=== PATIENT | male | born 1965 | race Two or more races ===

== ENCOUNTER 2023-11-26 14:59 | Inpatient (IN) ==
--- NOTE | 2023-11-26 15:44 | CT Scan Report ---
CT OF THE HEAD WITHOUT CONTRAST CLINICAL HISTORY: Vertigo. COMPARISON STUDY: Head CT January 31, 2009. CT DOSE: 625.8 mGy.cm TECHNIQUE: Helical axial images of the head were obtained without IV contrast. Automated exposure con trol was utilized for the study. A dose lowering technique was utilized adhering to the principles o f ALARA. FINDINGS: No acute intracranial hemorrhage, midline shift or mass effect is present. The ventricular system is unremarkable. The basal cisterns are patent. No extra-axial collections are present. There are no findings to suggest acute dural sinus thrombosis or acute territorial infarct. No significant calvarial abnormalities are present. Visualized portions of the sinuses and mastoid air cells are ricky ar. IMPRESSION: No acute intracranial findings. ACT 112: Negative or not required by law. Electronically signed by: Pro Duff M.D. 11/26/2023 3:43 PM
[2023-11-26 15:52] LABS: Basophils # (auto) 0.07 K/uL (0.00-0.20); Basophils % (auto) 1.1 %; Eosinophils # (auto) 0.12 K/uL (0.00-0.50); Eosinophils % (auto) 1.9 %; Hematocrit (blood only) 40.8 % (42.0-52.0); Hemoglobin 14.1 g/dl (14.0-18.0); Immature Granulocytes # (auto) 0.03 K/uL (0.01-0.20); Immature Granulocytes % (auto) 0.5 %; Lymphocytes # (auto) 1.66 K/uL (1.20-3.40); Lymphocytes % (auto) 26.8 %; Mean Corpuscular Hemoglobin 28.1 pg (25.0-34.0); Mean Corpuscular Hgb Conc 34.6 g/dL (32.0-36.0); Mean Corpuscular Volume 81.4 fL (80.0-100.0); Mean Platelet Volume 11.3 fL (9.4-12.4); Monocytes # (auto) 0.45 K/uL (0.11-0.59); Monocytes % (auto) 7.3 %; Neutrophils # (auto) 3.86 K/uL (1.40-6.50); Neutrophils % (auto) 62.4 %; Platelet Count 233 K/uL (130-400); RDW Coefficient of Variation 13.1 % (11.5-14.5); RDW Standard Deviation 38.1 fL (36.4-46.3); Red Blood Count 5.01 M/uL (4.70-6.10); White Blood Count 6.19 K/ul (4.8-10.8)
[2023-11-26 15:57] LABS: Partial Thromboplastin Time 28 Seconds (21-31); Prothrombin Time 10.9 Seconds (9.0-12.0)
[2023-11-26 16:10] LABS: Albumin Globulin Ratio 1.4 (0.9-2); Albumin Level 4.4 gm/dl (3.4-5.0); BUN Creatinine Ratio 11.3 (10-20); Bilirubin,Total 0.7 mg/dl (0.2-1.0); Calcium 9.6 mg/dl (8.6-10.3); Creatinine Clr Calc Pharmacy 108.1 ml/min; Est GFR (African American) 114.9 ml/min; Est GFR (Non-African American) 99.2 ml/min; Globulin 3.1 gm/dl (2.5-4.0); Total Protein 7.5 gm/dl (6.0-8.3)
[2023-11-26 16:15] LABS: Troponin I High Sensitivity 2.6 pg/ml (0-20)
[2023-11-26] MEDS: SODIUM CHLORIDE 0.9% 1,000 ML IV SCH (16:41)
--- NOTE | 2023-11-26 16:42 | Emergency Department Note ---
Impression & Plan Left arm weakness, Dizziness, Chronic low back pain ED Provider Note ED Provider Note NAME: HIRA EDWARDS AGE:58 SEX: Male : 1965 ARRIVES VIA: private vehicle INFORMANT: Patient ED PROVIDER(s): Disha Butts DO CHIEF COMPLAINT: left arm weakness HPI: This is a 58-year-old male presents emerged from due to concern for increased left arm weakness and dizziness. Patient has a history of left lower extremity weakness due to chronic low back problems for which she has had multiple treatments. He states when he awoke this morning he noted that the left arm was weaker as well as it was more difficult to shower. noticed the arm seem to drop to his side more briskly than usual. Patient states he also had a headache on the top of his head and this morning felt very dizzy. He states he does have history of vertigo in the initial symptoms felt similar to that. He states that seem to resolve around 10 AM. Patient denies any recent trauma or change in activity. Patient does chronically have difficulty walking due to his radicular symptoms from the low back and intermittent left leg pain and numbness. Patient denies any nausea or vomiting, chest pain, shortness of breath, abdominal pain, or fevers. No recent illness. Patient also has a prior history of a triple bypass. PAST MEDICAL HISTORY:See Below PAST SURGICAL HISTORY:See Below FAMILY HISTORY:See Below SOCIAL HISTORY:See Below HOME MEDICATIONS:See Below ALLERGIES:See Below VITALS:See Below PHYSICAL EXAMINATION: GENERAL: alert, well appearing, well nourished, no distress, non-toxic EYE EXAM: normal conjunctiva, PERRL and EOM's grossly intact OROPHARYNX: no exudate, no erythema, lips, buccal mucosa, and tongue normal and mucous membranes are moist NECK: supple, no nuchal rigidity, no adenopathy, non-tender LUNGS: Clear to auscultation. Normal chest wall mechanics, no w/r/r HEART: no murmurs, S1 normal and S2 normal ABDOMEN: abdomen soft, non-tender, normo-active bowel sounds, no masses, no rebound or guarding. BACK: Back is symmetrical on inspection and there is no deformity, no midline tenderness, no CVA tenderness. SKIN: no rashes, petechiae, orbruising UPPER EXTREMITIES: upper extremities are grossly normal. FROM, nml pulses b/l. LOWER EXTREMITIES: No pitting edema. FROM, nml pulses b/l. 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 Ataxia noted to the left lower extremity. Vital Signs: reviewed and remarkable Differential Diagnosis: CVA/TIA, cervical radiculopathy, lumbar radiculopathy, ICH, dehydration, SHARON, medication ADR, electrolyte abnormality, as well as others were considered MEDICAL DECISION MAKING: This is a 58-year-old male presents emergency department due to concern for left-sided weakness, dizziness, and headache. Patient with a history of chronic low back pain and intermittent leg weakness particularly on the left due to lumbar radiculopathy with accompanying paresthesias. Patient also has a history of vertigo and did have vertigo type dizziness per his report this morning. Patient then later on developed a headache. Patient and eventually noticed that he had left upper extremity weakness which is new for him today as well. In consideration of his complicated past medical history and risk of stroke, labs drawn and sent, IV established, EKG performed at bedside interpreted by me and patient monitored on telemetry. Patient had initially been sent by staff for a noncontrast head CT. I added additional CT angiography of the head and neck. CT imaging reassuring. Patient's last known well was last night before bed. Patient does take low-dose aspirin daily. Given unclear etiology and concern for central cause versus cervical radiculopathy given other back history, case discussed with the hospitalist for additional evaluation and management. Patient was hemodynamically stable throughout. Consultation(s): 2019: Discussed with Dr. Craig, [facility] hospitalist team, for additional evaluation and management. ER Treatment Provided: See below 2039: Patient updated on additional results. Still has left-sided weakness. Has some numbness now into the left hand and fingers 2 through 5. He states typically in the mornings he will have numbness in fingers 4 and 5 however that improves once he begins moving. Diagnostics Interpreted By Me: -ECG: Normal sinus 72, leftward axis, normal intervals, incomplete right bundle branch block, no acute ST/T wave change -Cardiac Monitoring: An order was placed for continuous cardiac monitoring. The monitor shows a rate of 70 with normal sinus rhythm. -Laboratory studies: As stated above and show below. -Imaging studies: CT head: no obvious ICH Triage Nursing Note Reviewed Prior/Outside Records Reviewed -prior cardiology visit reviewed Past Med/Surg History Medical History (Updated 11/27/23 @ 13:10 by Monty Pretty DO) CAD (coronary atherosclerotic disease) DM2 (diabetes mellitus, type 2) HTN (hypertension) Surgical History (Updated 11/27/23 @ 01:44 by Disha Butts DO) S/P CABG (coronary artery bypass graft) H/O arthroscopy of left knee History of trigger finger History of carpal tunnel surgery H/O shoulder surgery History of back surgery Family History Mother Heart disease Diabetes Dyslipidemia Father Colorectal cancer Kidney disease Social History Smoking Status: Never smoker Hx Alcohol Use: No Hx Substance Use: Yes Last Used Substance: Hours (ago) Last Used Substance Other:: medical marijuana at bedtime Preferred Language: Tajik Communication Ability: Effective Aids Counselor Required: No Beliefs That Will Affect Care: Cultural Current Living Situation: Spouse current occupational status: employed current occupation: [employer] Feels Safe at Home: Yes Assistive Devices: CPAP Allergies Allergies Allergy/AdvReac Type Severity Reaction Status Date / Time JOEL Inhibitors Allergy Intermediate HIVES/CHILL Verified 11/26/23 16:39 S Sulfa (Sulfonamide Allergy Intermediate "SULFA Verified 11/26/23 16:40 Antibiotics) DRUGS": RASH, HIVES albuterol Allergy Mild RASH Verified 11/26/23 16:39 rosuvastatin [From Crestor] AdvReac Intermediate Joint Pain Verified 11/26/23 16:39 Home Meds Home Medications Medication Instructions Recorded Confirmed albuterol sulfate 90 mcg/actuation 2 puff inhalation Q4 PRN Shortness 09/28/22 11/26/23 aerosol inhaler (Ventolin HFA) Of Breath Or Wheezing aspirin 81 mg chewable tablet 81 mg PO DAILY 09/28/22 11/26/23 cholecalciferol (vitamin D3) 50 50 mcg PO DAILY 09/28/22 11/26/23 mcg (2,000 unit) capsule evolocumab 140 mg/mL subcutaneous 140 mg subcut .[id number] 09/28/22 11/26/23 pen injector fenofibrate nanocrystallized 145 145 mg PO DAILY 09/28/22 11/26/23 mg tablet (Tricor) fluticasone propionate 50 2 spray intranasal DAILY 09/28/22 11/26/23 mcg/actuation nasal spray,suspension icosapent ethyl 1 gram capsule 2 g PO BID 09/28/22 11/26/23 (Vascepa) melatonin 10 mg disintegrating 10 mg PO HS Insomnia 09/28/22 11/26/23 tablet omeprazole 20 mg tablet,delayed 40 mg PO DAILY 09/28/22 11/26/23 release sildenafil (pulm.hypertension) 20 100 mg PO DAILY PRN Erectile 09/28/22 11/26/23 mg tablet (Revatio) Dysfunction triamcinolone acetonide 0.1 % 1 applic topical BID PRN Skin 09/28/22 11/26/23 topical cream Irritation Saccharomyces boulardii 250 mg 250 mg PO BID 11/26/23 11/26/23 capsule (Florastor) baclofen 10 mg tablet 10 mg PO TID 11/26/23 11/26/23 codeine 10 mg-guaifenesin 100 mg/5 5 ml PO Q4H PRN Cough 11/26/23 11/26/23 mL oral liquid docusate sodium 100 mg capsule 100 mg PO BID 11/26/23 11/26/23 finasteride 5 mg tablet 5 mg PO QAM 11/26/23 11/26/23 gabapentin 300 mg capsule 300 mg PO TID 11/26/23 11/26/23 losartan 25 mg tablet 12.5 mg PO DAILY 11/26/23 11/26/23 metformin 500 mg tablet,extended 1,000 mg PO BID 11/26/23 11/26/23 release 24 hr oxycodone 5 mg tablet 5 mg PO Q4H PRN Pain 11/26/23 11/26/23 psyllium husk (with sugar) 2 gram 2 wafer PO DAILY 11/26/23 11/26/23 oral wafer (Metamucil Fiber Thin) semaglutide 2 mg/dose (8 mg/3 mL) 2 mg subcut WK 05/07/24 05/07/24 subcutaneous pen injector (Ozempic) tamsulosin 0.4 mg capsule 0.4 mg PO QAM 11/26/23 11/26/23 Previous Rx's Medication Instructions Recorded metoprolol succinate 25 mg 25 mg PO DAILY #30 tabs 09/28/22 tablet,extended release 24 hr (Toprol XL) Results & Data (ED) Vital Signs Vital Signs - 24 hr 11/26/23 15:06 11/26/23 16:14 11/26/23 16:15 Temperature 36.5 C Temperature Source Skin Pulse Rate 75 74 Pulse Rate [Finger] 79 Pulse Rate from SpO2 Sensor Pulse Rhythm Regular Pulse Rhythm [Finger] Pulse Strength [Finger] Respiratory Rate 18 18 20 Respiratory Effort / Characteristics Non-Labored Spontaneous Respiratory Depth Normal Respiratory Pattern Regular Blood Pressure 171/88 H Blood Pressure [Right Arm] 165/90 H Blood Pressure Mean 115 Blood Pressure Mean [Right Arm] 115 Pulse Oximetry 96 98 99 Oxygen Delivery Method Room Air Room Air Room Air Sepsis Recent Fever Within 48 Hours No Sepsis New/Unexplained Change in Mental Status No Sepsis Action Taken by Nursing No Action Required 11/26/23 16:18 11/26/23 16:19 11/26/23 16:20 Temperature Temperature Source Pulse Rate 74 75 75 Pulse Rate [Finger] Pulse Rate from SpO2 Sensor 75 75 Pulse Rhythm Pulse Rhythm [Finger] Pulse Strength [Finger] Respiratory Rate 16 15 Respiratory Effort / Characteristics Respiratory Depth Respiratory Pattern Blood Pressure Blood Pressure [Right Arm] Blood Pressure Mean Blood Pressure Mean [Right Arm] Pulse Oximetry 99 99 Oxygen Delivery Method Sepsis Recent Fever Within 48 Hours Sepsis New/Unexplained Change in Mental Status Sepsis Action Taken by Nursing 11/26/23 16:30 11/26/23 16:39 11/26/23 16:40 Temperature Temperature Source Pulse Rate 78 72 Pulse Rate [Finger] Pulse Rate from SpO2 Sensor Pulse Rhythm Pulse Rhythm [Finger] Pulse Strength [Finger] Respiratory Rate 18 17 Respiratory Effort / Characteristics Respiratory Depth Respiratory Pattern Blood Pressure 169/104 H Blood Pressure [Right Arm] Blood Pressure Mean 115 Blood Pressure Mean [Right Arm] Pulse Oximetry Oxygen Delivery Method Sepsis Recent Fever Within 48 Hours Sepsis New/Unexplained Change in Mental Status Sepsis Action Taken by Nursing 11/26/23 16:46 11/26/23 16:50 11/26/23 17:00 Temperature Temperature Source Pulse Rate 73 69 Pulse Rate [Finger] Pulse Rate from SpO2 Sensor 73 69 Pulse Rhythm Pulse Rhythm [Finger] Pulse Strength [Finger] Respiratory Rate 17 24 Respiratory Effort / Characteristics Respiratory Depth Respiratory Pattern Blood Pressure 146/83 H Blood Pressure [Right Arm] Blood Pressure Mean 98 Blood Pressure Mean [Right Arm] Pulse Oximetry 98 94 Oxygen Delivery Method Sepsis Recent Fever Within 48 Hours Sepsis New/Unexplained Change in Mental Status Sepsis Action Taken by Nursing 11/26/23 17:00 11/26/23 17:10 11/26/23 17:20 Temperature Temperature Source Pulse Rate 72 70 68 Pulse Rate [Finger] Pulse Rate from SpO2 Sensor 71 70 69 Pulse Rhythm Pulse Rhythm [Finger] Pulse Strength [Finger] Respiratory Rate 21 19 20 Respiratory Effort / Characteristics Respiratory Depth Respiratory Pattern Blood Pressure Blood Pressure [Right Arm] Blood Pressure Mean Blood Pressure Mean [Right Arm] Pulse Oximetry 94 95 97 Oxygen Delivery Method Sepsis Recent Fever Within 48 Hours Sepsis New/Unexplained Change in Mental Status Sepsis Action Taken by Nursing 11/26/23 17:30 11/26/23 17:30 11/26/23 17:40 Temperature Temperature Source Pulse Rate 70 71 Pulse Rate [Finger] Pulse Rate from SpO2 Sensor 70 71 Pulse Rhythm Pulse Rhythm [Finger] Pulse Strength [Finger] Respiratory Rate 19 22 Respiratory Effort / Characteristics Respiratory Depth Respiratory Pattern Blood Pressure 136/88 Blood Pressure [Right Arm] Blood Pressure Mean 109 Blood Pressure Mean [Right Arm] Pulse Oximetry 98 96 Oxygen Delivery Method Sepsis Recent Fever Within 48 Hours Sepsis New/Unexplained Change in Mental Status Sepsis Action Taken by Nursing 11/26/23 17:50 11/26/23 18:00 11/26/23 18:00 Temperature Temperature Source Pulse Rate 70 69 Pulse Rate [Finger] 69 Pulse Rate from SpO2 Sensor 70 69 Pulse Rhythm Pulse Rhythm [Finger] Pulse Strength [Finger] Respiratory Rate 17 20 20 Respiratory Effort / Characteristics Non-Labored Spontaneous Respiratory Depth Normal Respiratory Pattern Regular Blood Pressure Blood Pressure [Right Arm] 145/88 H Blood Pressure Mean Blood Pressure Mean [Right Arm] 107 Pulse Oximetry 97 96 96 Oxygen Delivery Method Room Air Sepsis Recent Fever Within 48 Hours Sepsis New/Unexplained Change in Mental Status Sepsis Action Taken by Nursing 11/26/23 18:00 11/26/23 18:10 11/26/23 18:22 Temperature Temperature Source Pulse Rate 70 68 Pulse Rate [Finger] Pulse Rate from SpO2 Sensor 69 68 Pulse Rhythm Pulse Rhythm [Finger] Pulse Strength [Finger] Respiratory Rate 17 19 Respiratory Effort / Characteristics Respiratory Depth Respiratory Pattern Blood Pressure 145/88 H Blood Pressure [Right Arm] Blood Pressure Mean 104 Blood Pressure Mean [Right Arm] Pulse Oximetry 96 96 Oxygen Delivery Method Sepsis Recent Fever Within 48 Hours Sepsis New/Unexplained Change in Mental Status Sepsis Action Taken by Nursing 11/26/23 18:30 11/26/23 18:30 11/26/23 18:50 Temperature Temperature Source Pulse Rate 70 67 Pulse Rate [Finger] Pulse Rate from SpO2 Sensor 69 Pulse Rhythm Pulse Rhythm [Finger] Pulse Strength [Finger] Respiratory Rate 19 18 Respiratory Effort / Characteristics Respiratory Depth Respiratory Pattern Blood Pressure 146/100 H Blood Pressure [Right Arm] Blood Pressure Mean 113 Blood Pressure Mean [Right Arm] Pulse Oximetry 98 Oxygen Delivery Method Sepsis Recent Fever Within 48 Hours Sepsis New/Unexplained Change in Mental Status Sepsis Action Taken by Nursing 11/26/23 18:50 11/26/23 18:50 11/26/23 19:00 Temperature Temperature Source Pulse Rate 69 Pulse Rate [Finger] Pulse Rate from SpO2 Sensor 68 Pulse Rhythm Pulse Rhythm [Finger] Pulse Strength [Finger] Respiratory Rate 20 Respiratory Effort / Characteristics Respiratory Depth Respiratory Pattern Blood Pressure 146/90 H 146/90 H Blood Pressure [Right Arm] Blood Pressure Mean 93 93 Blood Pressure Mean [Right Arm] Pulse Oximetry 98 Oxygen Delivery Method Sepsis Recent Fever Within 48 Hours Sepsis New/Unexplained Change in Mental Status Sepsis Action Taken by Nursing 11/26/23 19:00 11/26/23 19:10 11/26/23 19:20 Temperature Temperature Source Pulse Rate 68 78 Pulse Rate [Finger] Pulse Rate from SpO2 Sensor 68 78 Pulse Rhythm Pulse Rhythm [Finger] Pulse Strength [Finger] Respiratory Rate 19 18 Respiratory Effort / Characteristics Respiratory Depth Respiratory Pattern Blood Pressure 159/95 H Blood Pressure [Right Arm] Blood Pressure Mean 125 Blood Pressure Mean [Right Arm] Pulse Oximetry 97 97 Oxygen Delivery Method Sepsis Recent Fever Within 48 Hours Sepsis New/Unexplained Change in Mental Status Sepsis Action Taken by Nursing 11/26/23 19:30 11/26/23 19:30 11/26/23 19:40 Temperature Temperature Source Pulse Rate 68 70 Pulse Rate [Finger] Pulse Rate from SpO2 Sensor 68 70 Pulse Rhythm Pulse Rhythm [Finger] Pulse Strength [Finger] Respiratory Rate 19 18 Respiratory Effort / Characteristics Respiratory Depth Respiratory Pattern Blood Pressure 147/96 H Blood Pressure [Right Arm] Blood Pressure Mean 103 Blood Pressure Mean [Right Arm] Pulse Oximetry 97 97 Oxygen Delivery Method Sepsis Recent Fever Within 48 Hours Sepsis New/Unexplained Change in Mental Status Sepsis Action Taken by Nursing 11/26/23 19:50 11/26/23 20:00 11/26/23 20:00 Temperature Temperature Source Pulse Rate 71 73 Pulse Rate [Finger] 71 Pulse Rate from SpO2 Sensor 71 73 Pulse Rhythm Pulse Rhythm [Finger] Regular Pulse Strength [Finger] Normal Respiratory Rate 15 18 17 Respiratory Effort / Characteristics Non-Labored Spontaneous Respiratory Depth Normal Respiratory Pattern Regular Blood Pressure Blood Pressure [Right Arm] 171/100 H Blood Pressure Mean Blood Pressure Mean [Right Arm] 123 Pulse Oximetry 97 99 95 Oxygen Delivery Method Room Air Sepsis Recent Fever Within 48 Hours Sepsis New/Unexplained Change in Mental Status Sepsis Action Taken by Nursing 11/26/23 20:00 11/26/23 20:28 11/26/23 20:30 Temperature Temperature Source Pulse Rate 74 Pulse Rate [Finger] Pulse Rate from SpO2 Sensor Pulse Rhythm Pulse Rhythm [Finger] Pulse Strength [Finger] Respiratory Rate 12 Respiratory Effort / Characteristics Respiratory Depth Respiratory Pattern Blood Pressure 149/95 H 177/106 H Blood Pressure [Right Arm] Blood Pressure Mean 107 121 Blood Pressure Mean [Right Arm] Pulse Oximetry Oxygen Delivery Method Sepsis Recent Fever Within 48 Hours Sepsis New/Unexplained Change in Mental Status Sepsis Action Taken by Nursing 11/26/23 20:30 11/26/23 20:40 11/26/23 20:50 Temperature Temperature Source Pulse Rate 70 70 72 Pulse Rate [Finger] Pulse Rate from SpO2 Sensor 70 69 70 Pulse Rhythm Pulse Rhythm [Finger] Pulse Strength [Finger] Respiratory Rate 20 18 19 Respiratory Effort / Characteristics Respiratory Depth Respiratory Pattern Blood Pressure Blood Pressure [Right Arm] Blood Pressure Mean Blood Pressure Mean [Right Arm] Pulse Oximetry 97 96 98 Oxygen Delivery Method Sepsis Recent Fever Within 48 Hours Sepsis New/Unexplained Change in Mental Status Sepsis Action Taken by Nursing Laboratory Data 11/27/23 03:17 11/27/23 03:17 Lab Results 11/26/23 11/27/23 Range/Units 15:25 00:52 WBC 6.19 (4.8-10.8) K/ul RBC 5.01 (4.70-6.10) M/uL Hgb 14.1 (14.0-18.0) g/dl Hct 40.8 L (42.0-52.0) % MCV 81.4 (80.0-100.0) fL MCH 28.1 (25.0-34.0) pg MCHC 34.6 (32.0-36.0) g/dL RDW Std Deviation 38.1 (36.4-46.3) fL RDW Coeff of Ravi 13.1 (11.5-14.5) % Plt Count 233 (130-400) K/uL MPV 11.3 (9.4-12.4) fL Immature Gran % (Auto) 0.5 % Neut % (Auto) 62.4 % Lymph % (Auto) 26.8 % Mclennan % (Auto) 7.3 % Eos % (Auto) 1.9 % Baso % (Auto) 1.1 % Neut # (Auto) 3.86 (1.40-6.50) K/uL Lymph # (Auto) 1.66 (1.20-3.40) K/uL Mclennan # (Auto) 0.45 (0.11-0.59) K/uL Eos # (Auto) 0.12 (0.00-0.50) K/uL Baso # (Auto) 0.07 (0.00-0.20) K/uL Immature Gran # (Auto) 0.03 (0.01-0.20) K/uL PT 10.9 (9.0-12.0) Seconds INR 1.0 (0.9-1.1) APTT 28 (21-31) Seconds PTT Ratio 1.0 Sodium 140 (136-145) mmol/L Potassium 4.0 (3.5-5.1) mmol/L Chloride 109 H (98-107) mmol/L Carbon Dioxide 22 (21-32) mmol/L Anion Gap 9 (3-11) BUN 9 (6-23) mg/dl Creatinine 0.80 (0.6-1.4) mg/dl Est Cr Clr Drug Dosing 108.1 ml/min Est GFR ( Amer) 114.9 ml/min Est GFR (Non-Af Amer) 99.2 ml/min BUN/Creatinine Ratio 11.3 (10-20) Glucose 126 H (70-99(Fasting)) mg/dl POC Glucose 105 H (70-99) mg/dl Calcium 9.6 (8.6-10.3) mg/dl Magnesium 1.9 (1.7-2.4) mg/dl Total Bilirubin 0.7 (0.2-1.0) mg/dl AST 17 (13-39) U/L ALT 22 (7-52) U/L Alkaline Phosphatase 78 (34-104) U/L Troponin I High Sens 2.6 (0-20) pg/ml Total Protein 7.5 (6.0-8.3) gm/dl Albumin 4.4 (3.4-5.0) gm/dl Globulin 3.1 (2.5-4.0) gm/dl Albumin/Globulin Ratio 1.4 (0.9-2) TSH 1.716 (0.300-4.500) uIu/ml Administered Medications Aspirin (Aspirin 81 Mg Chew) 81 mg PO DAILY JEAN CARLOS Stop: 12/27/23 08:59 Last Admin: 11/27/23 08:40 Dose: 81 mg Documented By: ALBERTO Baclofen (Baclofen 10 Mg Tab) 10 mg PO TID JEAN CARLOS Stop: 12/27/23 08:59 Last Admin: 11/27/23 20:49 Dose: 10 mg Documented By: Admin: 11/27/23 15:54 Dose: 10 mg Documented By: Admin: 11/27/23 08:39 Dose: 10 mg Documented By: ALBERTO Docusate Sodium (Docusate Sodium 100 Mg Cap) 100 mg PO BID JEAN CARLOS Stop: 12/27/23 08:59 Last Admin: 11/27/23 20:49 Dose: 100 mg Documented By: Admin: 11/27/23 08:39 Dose: 100 mg Documented By: ALBERTO Enoxaparin Sodium (Enoxaparin Inj 40 Mg/0.4 Ml Syr) 40 mg SQ QAM JEAN CARLOS Stop: 12/27/23 08:59 Last Admin: 11/27/23 08:34 Dose: 40 mg Documented By: ALBERTO Fenofibrate (Fenofibrate Nanocrystallized 145 Mg Tablet) 145 mg PO DAILY JEAN CARLOS Stop: 12/27/23 08:59 Last Admin: 11/27/23 08:38 Dose: 145 mg Documented By: ALBERTO Finasteride (Finasteride 5 Mg Tab) 5 mg PO QAM [facility] Stop: 12/27/23 08:59 Last Admin: 11/27/23 08:38 Dose: 5 mg Documented By: ALBERTO Fish Oil (Sumner-3 (Purified Fish Oil) 1 Gm Cap) 2 gm PO BID JEAN CARLOS Stop: 12/27/23 08:59 Last Admin: 11/27/23 20:49 Dose: 2 gm Documented By: Admin: 11/27/23 08:37 Dose: 2 gm Documented By: ALBERTO Fluticasone Propionate (Fluticasone Propionate Na Spr 16 Gm Btl) 2 sprays NA DAILY JEAN CARLOS Stop: 12/27/23 08:59 Last Admin: 11/27/23 08:40 Dose: 2 sprays Documented By: ALBERTO Gabapentin (Gabapentin 300 Mg Cap) 300 mg PO TID JEAN CARLOS Stop: 12/27/23 08:59 Last Admin: 11/27/23 20:49 Dose: 300 mg Documented By: Admin: 11/27/23 15:54 Dose: 300 mg Documented By: Admin: 11/27/23 08:36 Dose: 300 mg Documented By: ALBERTO Insulin Aspart (Insulin Aspart Per Unit Charge) 0 units SC ACHS [facility] Stop: 12/27/23 00:59 Last Admin: 11/27/23 20:49 Dose: Not Given Documented By: Admin: 11/27/23 17:52 Dose: 4 units Documented By: SHERWIN Co-signed By: NENITA Admin: 11/27/23 13:46 Dose: 2 units Documented By: SHERWIN Co-signed By: NENITA Admin: 11/27/23 08:41 Dose: Not Given Documented By: Admin: 11/27/23 01:38 Dose: Not Given Documented By: TERRI Lorazepam (Lorazepam 0.5 Mg Tab) 0.5 mg PO TID PRN PRN Reason: Anxiety Stop: 12/26/23 21:34 Last Admin: 11/26/23 22:38 Dose: 0.5 mg Documented By: GWEN Magnesium Oxide (Magnesium Oxide 400 Mg Tab) 400 mg PO BID [facility] Stop: 12/27/23 16:44 Last Admin: 11/27/23 20:49 Dose: 400 mg Documented By: Admin: 11/27/23 17:47 Dose: 400 mg Documented By: SHERWIN Melatonin (Melatonin 3 Mg Tab) 9 mg PO HS [facility] Stop: 12/27/23 20:59 Last Admin: 11/27/23 20:49 Dose: 9 mg Documented By: LEVY Metoprolol Succinate (Metoprolol Succ 25mg Ext Rel Tab) 25 mg PO DAILY JEAN CARLOS Stop: 12/27/23 08:59 Last Admin: 11/27/23 08:35 Dose: 25 mg Documented By: ALBERTO Pantoprazole Sodium (Pantoprazole 40 Mg Tab) 40 mg PO DAILY JEAN CARLOS Stop: 12/27/23 08:59 Last Admin: 11/27/23 08:35 Dose: 40 mg Documented By: ALBERTO Psyllium Hydrophilic Mucilloid (Psyllium Or Guar Gum Fiber 4gm Packet) 2 gm PO DAILY JEAN CAROLS Stop: 12/27/23 08:59 Last Admin: 11/27/23 08:34 Dose: 2 gm Documented By: ALBERTO Tamsulosin HCl (Tamsulosin Hcl 0.4 Mg Cap) 0.4 mg PO QAM JEAN CARLOS Stop: 12/27/23 08:59 Last Admin: 11/27/23 08:34 Dose: 0.4 mg Documented By: ALBERTO Discontinued Medications Atorvastatin Calcium (Atorvastatin 40 Mg Tab) 80 mg PO QAM JEAN CARLOS Stop: 12/27/23 12:59 Last Admin: 11/27/23 15:54 Dose: 80 mg Documented By: SHERWIN Clopidogrel Bisulfate (Clopidogrel Bisulfate 300 Mg Tab) 300 mg PO NOW STA Stop: 11/27/23 01:26 Last Admin: 11/27/23 01:50 Dose: 300 mg Documented By: TERRI Sodium Chloride (Nss) 1,000 mls @ 125 mls/hr IV .Q8H JEAN CARLOS Stop: 12/26/23 16:44 Last Infusion: 11/26/23 20:37 Dose: Infused Documented By: Admin: 11/26/23 16:41 Dose: 125 mls/hr Documented By: GWEN Sodium Chloride (Nss) 1,000 mls @ 60 mls/hr IV .[id number] ONE Stop: 11/27/23 13:05 Last Infusion: 11/27/23 13:24 Dose: Infused Documented By: Admin: 11/26/23 20:37 Dose: 100 mls/hr Documented By: GWEN Magnesium Sulfate/Dextrose (Magnesium Sulfate / D5w) 1 gm in 100 mls @ 50 mls/hr IV ONE ONE Stop: 11/26/23 23:03 Last Infusion: 11/27/23 00:00 Dose: Infused Documented By: Admin: 11/26/23 21:26 Dose: 50 mls/hr Documented By: GWEN Ioversol (Optiray 320 125ml) 119 ml IV ONCE ONE Stop: 11/26/23 18:39 Last Admin: 11/26/23 18:39 Dose: 119 ml Documented By: DAYNA Imaging Data Radiologist's Impression: Head CT 11/26/23 15:12 CT OF THE HEAD WITHOUT CONTRAST CLINICAL HISTORY: Vertigo. COMPARISON STUDY: Head CT January 31, 2009. CT DOSE: 625.8 mGy.cm TECHNIQUE: Helical axial images of the head were obtained without IV contrast. Automated exposure control was utilized for the study. A dose lowering technique was utilized adhering to the principles of ALARA. FINDINGS: No acute intracranial hemorrhage, midline shift or mass effect is present. The ventricular system is unremarkable. The basal cisterns are patent. No extra-axial collections are present. There are no findings to suggest acute dural sinus thrombosis or acute territorial infarct. No significant calvarial abnormalities are present. Visualized portions of the sinuses and mastoid air cells are clear. IMPRESSION: No acute intracranial findings. ACT 112: Negative or not required by law. Electronically signed by: Pro Duff M.D. 11/26/2023 3:43 PM Head CTA 11/26/23 18:16 CTA ANGIOGRAPHY OF THE HEAD CLINICAL HISTORY: villagran, dizzy, LUE weakness COMPARISON STUDY: Head CT performed earlier today. TECHNIQUE: Helical axial images of the head were obtained following uneventful intravenous administration of 119 cc of Optiray. Sagittal and coronal reconstructions were viewed as well as maximal intensity projections on an independent 3-D workstation. Automated exposure control was utilized for the study. A dose lowering technique was utilized adhering to the principles of ALARA. CT DOSE: 518.43 mGy.cm FINDINGS: No acute intracranial hemorrhage is identified on this contrast enhanced study. Ventricular system is normal. Basal cisterns are patent. There are no extra-axial collections. The bilateral M1, M2, A1 and A2 segments are patent. There is mild plaque within the cavernous carotids without stenosis. No vessel occlusion is identified. There is no intracranial aneurysm. Posterior circulation is intact. Major dural sinuses are patent. IMPRESSION: No vessel occlusion. No intracranial aneurysm. ACT 112: Negative or not required by law. Electronically signed by: Pro Duff M.D. 11/26/2023 7:38 PM Neck CTA 11/26/23 18:16 CT ANGIOGRAPHY OF THE NECK WITH CONTRAST CLINICAL HISTORY: Headache, dizzy, LUE weakness. COMPARISON STUDY: No previous studies for comparison. Technique: CT angiography of the carotid and vertebral arteries was obtained using Optiray and 3D reconstruction on an independent workstation. NASCET criteria was utilized. Automated exposure control was utilized for the study. A dose lowering technique was utilized adhering to the principles of ALARA. Findings: Visualized portions of the lung apices are unremarkable. There is no cervical spine fracture. No cervical lymphadenopathy is present. The bilateral common carotid, cervical internal carotid and vertebral arteries are patent. No stenosis or dissection within these vessels is identified. There is minimal plaque within the bilateral carotid bifurcations. IMPRESSION: No stenosis or dissection within the bilateral common carotid, cervical internal carotid or vertebral arteries. ACT 112: Negative or not required by law. Electronically signed by: Pro Duff M.D. 11/26/2023 7:30 PM Brain MRI 11/26/23 21:27 CR Exam(s): MRI HEAD Without Contrast EXAM: MR Head Without Intravenous Contrast CLINICAL HISTORY: Reason for exam: l sided weakness. TECHNIQUE: Magnetic resonance images of the head/brain without intravenous contrast in multiple planes. COMPARISON: Comparison made to prior CT from November 26, 2023. FINDINGS: Brain: There is a small acute ischemic injury within the right ev without evidence of hemorrhagic transformation. Minimal nonspecific changes. No mass. No hemorrhage. The flow voids at the base of the brain are intact Ventricles: Unremarkable. No ventriculomegaly. Bones/joints: Unremarkable. No acute fracture. Sinuses: Unremarkable as visualized. No acute sinusitis. Mastoid air cells: Unremarkable as visualized. No mastoid effusion. Orbits: Unremarkable as visualized. IMPRESSION: There is a small acute ischemic right ev. Communications: Verify Receipt Electronically signed by: Ivelisse Fajardo MD 11/27/23 01:02 AM Lumbar Spine MRI 11/26/23 21:27 Exam(s): MRI L SPINE Without Contrast EXAM: MR Lumbar Spine Without Intravenous Contrast CLINICAL HISTORY: Reason for exam: back pain, leg weakness. TECHNIQUE: Magnetic resonance images of the lumbar spine without intravenous contrast in multiple planes. COMPARISON: Comparison made to prior lumbar spine MRI from November 29, 2015. FINDINGS: Vertebrae: There are 5 lumbar type vertebral bodies with a normal lumbar lordosis. There is normal vertebral body height and alignment. The bone marrow signal is heterogeneous with areas of focal fat or venous malformations and reactive end plate changes. No acute fracture. 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 Spinal cord: The conus is normal size, shape and signal characteristics. To L1-L2. Soft tissues: Moderate atrophy of the psoas, paraspinous intraspinous musculature. The aorta and IVC flow voids are intact. The visualized kidneys are unremarkable. DISCS/SPINAL CANAL/NEURAL FORAMINA: L1-L2: Moderate degeneration of the disc bulge asymmetric to the right causing mild subarticular recess stenosis with superimposed congenitally short pedicles causing a mild spinal canal stenosis with thecal sac hemorrhage and 0.93 cm clear. There is disc extension of the neuroforamina without evidence of impingement or significant stenosis. There is mild facet arthropathy with mild synovitis. L2-L3: There is mild disc degeneration with annular disc bulge causing a mild subarticular recess stenosis with superimposed congenitally short pedicles causing a mild spinal canal stenosis with thecal sac area measuring 0.78 cm. There is disc extending to the neuroforamina causing mild bilateral stenosis without evidence of neural impingement. There is mild facet arthropathy with mild synovitis. L3-L4: There is mild disc degeneration with any other disc bulge asymmetric to left causing mild subarticular recess stenosis with superimposed congenitally short pedicles causing a moderately severe spinal canal stenosis with thecal sac average of 0.65 cm. There is disc extending to the neuroforamina causing mild bilateral stenosis without evidence of neural impingement. There is mild facet arthropathy with mild synovitis. L4-L5: There is mild disc degeneration with annular disc bulge asymmetric to the right causing mild subarticular recess stenosis, with superimposed congenitally short pedicles causing a severe spinal canal stenosis with thecal sac hemorrhage and 0.46 cm. There is disc extending to the neuroforamina causing mild bilateral stenosis without evidence of neural impingement. There is minimal facet arthropathy with mild synovitis. L5-S1: Moderate disc degeneration within the disc bulge flattening the ventral thecal sac, with disc and osteophyte extending to the neuroforamina causing a moderately severe right and mild left stenosis with impingement of the right L5 nerve root ganglion. There is mild facet arthropathy with mild synovitis. IMPRESSION: 1. Moderate disc degeneration at L1-L2 and L5-S1 with mild disc degeneration at L2-3, L3-4 and L4-5 with annular disc bulging flattening the ventral thecal sac and causing mild subarticular recess stenosis at L1-2, L2-3, L3-4 and L4-5 without evidence of neural impingement. 2. 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 3. There is mild bilateral L2-3, mild bilateral L3-4, mild bilateral L4- 5 and moderately severe right and mild left L5-S1 neuroforaminal stenosis with impingement of the right L5 nerve root ganglion. 4. There is minimal to mild facet arthropathy with mild synovitis. 5. No evidence of fracture, infection, tumor or arachnoiditis. Electronically signed by: Ivelisse Fajardo MD 11/27/23 01:25 AM Discharge Plan Visit Data Chief Complaint: Vertigo Stated Complaint: left side mobility issues, head pressure, weakness ED Provider: Disha Butts Discharge Problem: Left arm weakness, Dizziness, Chronic low back pain Patient Disposition: Admitted As Inpatient Discharge Instructions Interventions: ED Discharge Assessment Last Done: 11/27/23 13:11
[2023-11-26] MEDS: OPTIRAY 320 125ml IV ONE (18:39)
--- NOTE | 2023-11-26 19:33 | CT Scan Report ---
CT ANGIOGRAPHY OF THE NECK WITH CONTRAST CLINICAL HISTORY: Headache, dizzy, LUE weakness. COMPARISON STUDY: No previous studies for comparison. Technique: CT angiography of the carotid and vertebral arteries was obtained using Optiray and 3D rec onstruction on an independent workstation. NASCET criteria was utilized. Automated exposure control was utilized for the study. A dose lowering technique was utilized adhering to the principles of ALA RA. Findings: Visualized portions of the lung apices are unremarkable. There is no cervical spine fractur e. No cervical lymphadenopathy is present. The bilateral common carotid, cervical internal carotid an d vertebral arteries are patent. No stenosis or dissection within these vessels is identified. There is minimal plaque within the bilateral carotid bifurcations. IMPRESSION: No stenosis or dissection within the bilateral common carotid, cervical internal carotid or vertebral arteries. ACT 112: Negative or not required by law. Electronically signed by: Pro Duff M.D. 11/26/2023 7:30 PM
--- NOTE | 2023-11-26 19:40 | CT Scan Report ---
CTA ANGIOGRAPHY OF THE HEAD CLINICAL HISTORY: villagran, dizzy, LUE weakness COMPARISON STUDY: Head CT performed earlier today. TECHNIQUE: Helical axial images of the head were obtained following uneventful intravenous administr ation of 119 cc of Optiray. Sagittal and coronal reconstructions were viewed as well as maximal inten sity projections on an independent 3-D workstation. Automated exposure control was utilized for the study. A dose lowering technique was utilized adhering to the principles of ALARA. CT DOSE: 518.43 mGy.cm FINDINGS: No acute intracranial hemorrhage is identified on this contrast enhanced study. Ventricular system is normal. Basal cisterns are patent. There are no extra-axial collections. The bilateral M1, M2, A1 and A2 segments are patent. There is mild plaque within the cavernous carotids without stenos is. No vessel occlusion is identified. There is no intracranial aneurysm. Posterior circulation is in tact. Major dural sinuses are patent. IMPRESSION: No vessel occlusion. No intracranial aneurysm. ACT 112: Negative or not required by law. Electronically signed by: Pro Duff M.D. 11/26/2023 7:38 PM
[2023-11-26] MEDS: SODIUM CHLORIDE 0.9% 1,000 ML IV ONE (20:37)
[2023-11-26 20:47] LABS: Magnesium 1.9 mg/dl (1.7-2.4)
[2023-11-26] MEDS: MAGNESIUM SULFATE / D5W 1 GM/100 ML BAG IV ONE (21:26)
--- NOTE | 2023-11-26 21:29 | History & Physical Report ---
Date of Service November 26, 2023 Assessment & Plan (1) TIA (transient ischemic attack): Plan: Presenting as vertigo symptoms with left-sided weakness ? Aspirin failure Hypertension, elevated secondary to above Worsening left lower extremity weakness possibly from TIA rule out lumbar radiculopathy given recent spinal manipulation, history of chronic back pain status post surgery hyperlipidemia, statin intolerance, patient on PCSK9 inhibitor AURE on CPAP DM 2 on oral medications, well-controlled as of recent hemoglobin A1c of 5.30 July 2023 past tobacco abuse OBS Medical telemetry Neurochecks MRI brain MRI lumbar spine Permissive hypertension for now TTE for additional stroke workup ISS BG goal 1 10-1 40 DVT prophylaxis. Lovenox subcu if no bleed on lumbar spine imaging Full code Patient requesting updates providers. Ms. Berenice Perales, contact #[phone]. Text document was generated using [employer] voice recognition software. It may contain grammatical or spelling errors. Kindly contact undersigned for clarification of any documentation item in question. ADDENDUM 11/27/23, 1 AM Made aware of abnormal brain MRI report: There is a small acute ischemic right ev. AP Acute CVA Possible aspirin failure Changed to full admission Plavix in addition to aspirin Neurology consult in a.m. History of Present Illness Chief Complaint: Left-sided weakness Primary Care Provider: Monty Gillespie MD History obtained from patient, family, and records. Medical history significant for CAD status post CABG, hypertension, hyperlipidemia, statin intolerance, AURE on CPAP, DM 2 on oral medications, GERD, chronic back pain status post surgery, past tobacco abuse. Last confinement 2015 under [facility] for thoracic stenosis status post decompression surgery. Patient saw chiropractor yesterday for worsening back pain symptoms without unusual leg weakness. Improved back pain after manipulation. This morning, patient woke up not feeling well. Dizzy and feeling imbalance. Left-sided weakness more than usual. Some left upper extremity numbness. Achy headache symptoms. Patient denies chest pain, SOB symptoms. Patient compliant with home aspirin except that he had to stop medication for an outpatient injection last month. Improving left upper extremity weakness at the ER. 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 Allergies Allergy/AdvReac Type Severity Reaction Status Date / Time JOEL Inhibitors Allergy Intermediate HIVES/CHILL Verified 11/26/23 16:39 S Sulfa (Sulfonamide Allergy Intermediate "SULFA Verified 11/26/23 16:40 Antibiotics) DRUGS": RASH, HIVES albuterol Allergy Mild RASH Verified 11/26/23 16:39 rosuvastatin [From Crestor] AdvReac Intermediate Joint Pain Verified 11/26/23 16:39 Home Medications Medication Instructions Recorded Confirmed Type albuterol sulfate 90 mcg/actuation 2 puff inhalation Q4 PRN Shortness 09/28/22 11/26/23 History aerosol inhaler (Ventolin HFA) Of Breath Or Wheezing aspirin 81 mg chewable tablet 81 mg PO DAILY 09/28/22 11/26/23 History cholecalciferol (vitamin D3) 50 50 mcg PO DAILY 09/28/22 11/26/23 History mcg (2,000 unit) capsule evolocumab 140 mg/mL subcutaneous 140 mg subcut .[id number] 09/28/22 11/26/23 History pen injector fenofibrate nanocrystallized 145 145 mg PO DAILY 09/28/22 11/26/23 History mg tablet (Tricor) fluticasone propionate 50 2 spray intranasal DAILY 09/28/22 11/26/23 History mcg/actuation nasal spray,suspension icosapent ethyl 1 gram capsule 2 g PO BID 09/28/22 11/26/23 History (Vascepa) melatonin 10 mg disintegrating 10 mg PO HS Insomnia 09/28/22 11/26/23 History tablet metoprolol succinate 25 mg 25 mg PO DAILY #30 tabs 09/28/22 11/26/23 Rx tablet,extended release 24 hr (Toprol XL) omeprazole 20 mg tablet,delayed 40 mg PO DAILY 09/28/22 11/26/23 History release sildenafil (pulm.hypertension) 20 100 mg PO DAILY PRN Erectile 09/28/22 11/26/23 History mg tablet (Revatio) Dysfunction triamcinolone acetonide 0.1 % 1 applic topical BID PRN Skin 09/28/22 11/26/23 History topical cream Irritation Saccharomyces boulardii 250 mg 250 mg PO BID 11/26/23 11/26/23 History capsule (Florastor) baclofen 10 mg tablet 10 mg PO TID 11/26/23 11/26/23 History codeine 10 mg-guaifenesin 100 mg/5 5 ml PO Q4H PRN Cough 11/26/23 11/26/23 History mL oral liquid docusate sodium 100 mg capsule 100 mg PO BID 11/26/23 11/26/23 History finasteride 5 mg tablet 5 mg PO QAM 11/26/23 11/26/23 History gabapentin 300 mg capsule 300 mg PO TID 11/26/23 11/26/23 History losartan 25 mg tablet 12.5 mg PO DAILY 11/26/23 11/26/23 History metformin 500 mg tablet,extended 1,000 mg PO BID 11/26/23 11/26/23 History release 24 hr oxycodone 5 mg tablet 5 mg PO Q4H PRN Pain 11/26/23 11/26/23 History psyllium husk (with sugar) 2 gram 2 wafer PO DAILY 11/26/23 11/26/23 History oral wafer (Metamucil Fiber Thin) semaglutide 2 mg/dose (8 mg/3 mL) 2 mg subcut WK 11/26/23 11/26/23 History subcutaneous pen injector (Ozempic) tamsulosin 0.4 mg capsule 0.4 mg PO QAM 11/26/23 11/26/23 History Past Med/Surg History Medical History (Updated 11/27/23 @ 08:36 by Adair Ortiz MD) CAD (coronary atherosclerotic disease) DM2 (diabetes mellitus, type 2) HTN (hypertension) Surgical History (Updated 11/27/23 @ 01:44 by Disha Butts DO) S/P CABG (coronary artery bypass graft) H/O arthroscopy of left knee History of trigger finger History of carpal tunnel surgery H/O shoulder surgery History of back surgery Family History Mother Heart disease Diabetes Dyslipidemia Father Colorectal cancer Kidney disease Social History Smoking Status: Never smoker Hx Alcohol Use: No Hx Substance Use: Yes Last Used Substance: Hours (ago) Last Used Substance Ot her:: medical marijuana at bedtime Preferred Language: Mosotho Credit Analyst Required: No Beliefs That Will Affect Care: None Current Living Situation: Spouse current occupational status: employed 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 Feels Safe at Home: Yes Assistive Devices: CPAP and Glasses Review of Systems Review of Systems: As per HPI, all other systems reviewed and negative Physical Exam Physical Exam: GENERAL: Comfortable, pleasant, obese, no respiratory distress SKIN: Normal color, warm HEENT: Bespectacled, [place] palpebral conjunctivae, no ptosis, dry buccal mucosa NECK : Supple, no tenderness CHEST : CTA, no tenderness HEART : RRR, no obvious murmurs ABDOMEN: Some distention, nontender BACK : Minimal low back tenderness EXTREMITIES : No LE swelling/tenderness, no other conspicuous deformities noted NEUROLOGIC : Coherent, no facial asymmetry, MMTS BUE 4/5, LLE 3/5 (chronic as per patient), RLE 4/5 Results & Data Results & Data Vital Signs (Past 12 Hours) Vital Signs Temp Pulse Pulse Resp BP BP Pulse Ox 11/26/23 20:00 71 18 171/100 H 99 11/26/23 19:30 68 19 97 11/26/23 19:30 147/96 H 11/26/23 19:20 78 18 97 11/26/23 19:10 68 19 97 11/26/23 19:00 159/95 H 11/26/23 19:00 69 20 98 11/26/23 18:50 146/90 H 11/26/23 18:50 146/90 H 11/26/23 18:50 67 18 98 11/26/23 18:30 146/100 H 11/26/23 18:30 70 19 11/26/23 18:22 68 19 96 11/26/23 18:10 70 17 96 11/26/23 18:00 145/88 H 11/26/23 18:00 69 20 96 11/26/23 18:00 69 20 145/88 H 96 11/26/23 17:50 70 17 97 11/26/23 17:40 71 22 96 11/26/23 17:30 136/88 11/26/23 17:30 70 19 98 11/26/23 17:20 68 20 97 11/26/23 17:10 70 19 95 11/26/23 17:00 72 21 94 11/26/23 17:00 146/83 H 11/26/23 16:50 69 24 94 11/26/23 16:46 73 17 98 05/07/24 16:40 169/104 H 11/26/23 16:39 72 17 11/26/23 16:30 78 18 11/26/23 16:20 75 15 99 11/26/23 16:19 75 11/26/23 16:18 74 16 99 11/26/23 16:15 74 20 99 11/26/23 16:14 79 18 165/90 H 98 11/26/23 15:06 36.5 C 75 18 171/88 H 96 O2 Del Method 11/26/23 20:00 Room Air 11/26/23 19:30 11/26/23 19:30 11/26/23 19:20 11/26/23 19:10 11/26/23 19:00 11/26/23 19:00 11/26/23 18:50 11/26/23 18:50 11/26/23 18:50 11/26/23 18:30 11/26/23 18:30 11/26/23 18:22 11/26/23 18:10 11/26/23 18:00 11/26/23 18:00 11/26/23 18:00 Room Air 11/26/23 17:50 11/26/23 17:40 11/26/23 17:30 11/26/23 17:30 11/26/23 17:20 11/26/23 17:10 11/26/23 17:00 11/26/23 17:00 11/26/23 16:50 11/26/23 16:46 11/26/23 16:40 11/26/23 16:39 11/26/23 16:30 11/26/23 16:20 11/26/23 16:19 11/26/23 16:18 11/26/23 16:15 Room Air 11/26/23 16:14 Room Air 11/26/23 15:06 Room Air Laboratory Results Laboratory Results WBC 6.19 K/ul (4.8-10.8) 11/26/23 15:25 RBC 5.01 M/uL (4.70-6.10) 11/26/23 15:25 Hgb 14.1 g/dl (14.0-18.0) 11/26/23 15:25 Hct 40.8 % (42.0-52.0) L 11/26/23 15:25 MCV 81.4 fL (80.0-100.0) 11/26/23 15:25 MCH 28.1 pg (25.0-34.0) 11/26/23 15: MCHC 34.6 g/dL (32.0-36.0) 11/26/23 15:25 RDW Std Deviation 38.1 fL (36.4-46.3) 11/26/23 15: RDW Coeff of Ravi 13.1 % (11.5-14.5) 11/26/23 15: Plt Count 233 K/uL (130-400) 11/26/23 15: MPV 11.3 fL (9.4-12.4) 11/26/23 15:25 Immature Gran % (Auto) 0.5 % 11/26/23 15:25 Neut % (Auto) 62.4 % 11/26/23 15:25 Lymph % (Auto) 26.8 % 11/26/23 15:25 [place] % (Auto) 7.3 % 11/26/23 15:25 Eos % (Auto) 1.9 % 11/26/23 15:25 Baso % (Auto) 1.1 % 11/26/23 15:25 Neut # (Auto) 3.86 K/uL (1.40-6.50) 11/26/23 15:25 Lymph # (Auto) 1.66 K/uL (1.20-3.40) 11/26/23 15:25 [place] # (Auto) 0.45 K/uL (0.11-0.59) 11/26/23 15:25 Eos # (Auto) 0.12 K/uL (0.00-0.50) 11/26/23 15:25 Baso # (Auto) 0.07 K/uL (0.00-0.20) 11/26/23 15:25 Immature Gran # (Auto) 0.03 K/uL (0.01-0.20) 11/26/23 15:25 PT 10.9 Seconds (9.0-12.0) 11/26/23 15:25 INR 1.0 (0.9-1.1) 11/26/23 15:25 APTT 28 Seconds (21-31) 11/26/23 15:25 PTT Ratio 1.0 11/26/23 15:25 Sodium 140 mmol/L (136-145) 11/26/23 15:25 Potassium 4.0 mmol/L (3.5-5.1) 11/26/23 15:25 Chloride 109 mmol/L (98-107) H 11/26/23 15:25 Carbon Dioxide 22 mmol/L (21-32) 11/26/23 15:25 Anion Gap 9 (3-11) 11/26/23 15:25 BUN 9 mg/dl (6-23) 11/26/23 15:25 Creatinine 0.80 mg/dl (0.6-1.4) 11/26/23 15:25 Est Cr Clr Drug Dosing 108.1 ml/min 11/26/23 15:25 Est GFR ( Amer) 114.9 ml/min 11/26/23 15:25 Est GFR (Non-Af Amer) 99.2 ml/min 11/26/23 15:25 BUN/Creatinine Ratio 11.3 (10-20) 11/26/23 15:25 Glucose 126 mg/dl (70-99(Fasting)) H 11/26/23 15:25 Calcium 9.6 mg/dl (8.6-10.3) 11/26/23 15:25 Magnesium 1.9 mg/dl (1.7-2.4) 11/26/23 15:25 Total Bilirubin 0.7 mg/dl (0.2-1.0) 11/26/23 15:25 AST 17 U/L (13-39) 11/26/23 15:25 ALT 22 U/L (7-52) 11/26/23 15:25 Alkaline Phosphatase 78 U/L (34-104) 11/26/23 15:25 Troponin I High Sens 2.6 pg/ml (0-20) 11/26/23 15:25 Total Protein 7.5 gm/dl (6.0-8.3) 11/26/23 15:25 Albumin 4.4 gm/dl (3.4-5.0) 11/26/23 15:25 Globulin 3.1 gm/dl (2.5-4.0) 11/26/23 15:25 Albumin/Globulin Ratio 1.4 (0.9-2) 11/26/23 15:[address] 11/26/23 15:12 CT OF THE HEAD WITHOUT CONTRAST CLINICAL HISTORY: Vertigo. COMPARISON STUDY: Head CT January 31, 2009. CT DOSE: 625.8 mGy.cm TECHNIQUE: Helical axial images of the head were obtained without IV contrast. Automated exposure control was utilized for the study. A dose lowering technique was utilized adhering to the principles of ALARA. FINDINGS: No acute intracranial hemorrhage, midline shift or mass effect is present. The ventricular system is unremarkable. The basal cisterns are patent. No extra-axial collections are present. There are no findings to suggest acute dural sinus thrombosis or acute territorial infarct. No significant calvarial abnormalities are present. Visualized portions of the sinuses and mastoid air cells are clear. IMPRESSION: No acute intracranial findings. ACT 112: Negative or not required by law. Electronically signed by: Pro Duff M.D. 11/26/2023 3:43 PM Head CTA 11/26/23 18:16 CTA ANGIOGRAPHY OF THE HEAD CLINICAL HISTORY: villagran, dizzy, LUE weakness COMPARISON STUDY: Head CT performed earlier today. TECHNIQUE: Helical axial images of the head were obtained following uneventful intravenous administration of 119 cc of Optiray. Sagittal and coronal reconstructions were viewed as well as maximal intensity projections on an independent 3-D workstation. Automated exposure control was utilized for the study. A dose lowering technique was utilized adhering to the principles of ALARA. CT DOSE: 518.43 mGy.cm FINDINGS: No acute intracranial hemorrhage is identified on this contrast enhanced study. Ventricular system is normal. Basal cisterns are patent. There are no extra-axial collections. The bilateral M1, M2, A1 and A2 segments are patent. There is mild plaque within the cavernous carotids without stenosis. No vessel occlusion is identified. There is no intracranial aneurysm. Posterior circulation is intact. Major dural sinuses are patent. IMPRESSION: No vessel occlusion. No intracranial aneurysm. ACT 112: Negative or not required by law. Electronically signed by: Pro Duff M.D. 11/26/2023 7:38 PM Neck CTA 11/26/23 18:16 CT ANGIOGRAPHY OF THE NECK WITH CONTRAST CLINICAL HISTORY: Headache, dizzy, LUE weakness. COMPARISON STUDY: No previous studies for comparison. Technique: CT angiography of the carotid and vertebral arteries was obtained using Optiray and 3D reconstruction on an independent workstation. NASCET criter ia was utilized. Automated exposure control was utilized for the study. A dose lowering technique was utilized adhering to the principles of ALARA. Findings: Visualized portions of the lung apices are unremarkable. There is no cervical spine fracture. No cervical lymphadenopathy is present. The bilateral common carotid, cervical internal carotid and vertebral arteries are patent. No stenosis or dissection within these vessels is identified. There is minimal plaque within the bilateral carotid bifurcations. IMPRESSION: No stenosis or dissection within the bilateral common carotid, cervical internal carotid or vertebral arteries. ACT 112: Negative or not required by law. Electronically signed by: Pro Duff M.D. 11/26/2023 7:30 PM Diagnostic Findings EKG as per my interpretation : Rate 70, NSR, LAD, LAFB, RBBB, no ischemia
[2023-11-26] MEDS ORDERED: PROMETHAZINE HCL 12.5 MG in SODIUM CHLORIDE 0.9% 50 ML IV PRN (21:35)
[2023-11-26] MEDS ORDERED: ACETAMINOPHEN 325 MG TAB PO PRN (21:35)
[2023-11-26] MEDS ORDERED: oxyCODONE HCL IR 5 MG TAB (IMMEDIATE RELEASE) PO PRN (21:35)
[2023-11-26 21:44] LABS: Thyroid Stimulating Hormone 1.716 uIu/ml (0.300-4.500)
[2023-11-26] MEDS: LORazepam 0.5 MG TAB PO PRN (22:38)
[2023-11-27] MEDS ORDERED: GLUCOSE 10 TAB/TUBE PO PRN (00:08)
[2023-11-27] MEDS ORDERED: DEXTROSE 50% 50 ML SYRINGE IV PRN (00:08)
[2023-11-27] MEDS ORDERED: GLUCAGON FOR INJ 1 MG VIAL SQ PRN (00:08)
[2023-11-27] MEDS ORDERED: GLUCOSE 40% GEL 15 GM TUBE PO PRN (00:08)
[2023-11-27] MEDS ORDERED: PHARMACIST DISCHARGE MED REC CONSULT PRN (00:08)
[2023-11-27] MEDS ORDERED: CARBOHYDRATES FOR HYPOGLYCEMIA PO PRN (00:08)
--- NOTE | 2023-11-27 01:03 | Magnetic Resonance Report ---
Exam(s): MRI HEAD Without Contrast EXAM: MR Head Without Intravenous Contrast CLINICAL HISTORY: Reason for exam: l sided weakness. TECHNIQUE: Magnetic resonance images of the head/brain without intravenous contrast in multiple planes. COMPARISON: Comparison made to prior CT from November 26, 2023. FINDINGS: Brain: There is a small acute ischemic injury within the right ev without evidence of hemorrhagic transformation. Minimal nonspecific changes. No mass. No hemorrhage. The flow voids at the base of the brain are intact Ventricles: Unremarkable. No ventriculomegaly. Bones/joints: Unremarkable. No acute fracture. Sinuses: Unremarkable as visualized. No acute sinusitis. Mastoid air cells: Unremarkable as visualized. No mastoid effusion. Orbits: Unremarkable as visualized. IMPRESSION: There is a small acute ischemic right ev. Communications: Verify Receipt Electronically signed by: Ivelisse Fajardo MD 11/27/23 01:02 AM
--- NOTE | 2023-11-27 01:25 | Magnetic Resonance Report ---
Exam(s): MRI L SPINE Without Contrast EXAM: MR Lumbar Spine Without Intravenous Contrast CLINICAL HISTORY: Reason for exam: back pain, leg weakness. TECHNIQUE: Magnetic resonance images of the lumbar spine without intravenous contrast in multiple planes. COMPARISON: Comparison made to prior lumbar spine MRI from November 29, 2015. FINDINGS: Vertebrae: There are 5 lumbar type vertebral bodies with a normal lumbar lordosis. There is normal vertebral body height and alignment. The bone marrow signal is heterogeneous with areas of focal fat or venous malformations and reactive end plate changes. No acute fracture. 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 Spinal cord: The conus is normal size, shape and signal characteristics. To L1-L2. Soft tissues: Moderate atrophy of the psoas, paraspinous intraspinous musculature. The aorta and IVC flow voids are intact. The visualized kidneys are unremarkable. DISCS/SPINAL CANAL/NEURAL FORAMINA: L1-L2: Moderate degeneration of the disc bulge asymmetric to the right causing mild subarticular recess stenosis with superimposed congenitally short pedicles causing a mild spinal canal stenosis with thecal sac hemorrhage and 0.93 cm clear. There is disc extension of the neuroforamina without evidence of impingement or significant stenosis. There is mild facet arthropathy with mild synovitis. L2-L3: There is mild disc degeneration with annular disc bulge causing a mild subarticular recess stenosis with superimposed congenitally short pedicles causing a mild spinal canal stenosis with thecal sac area measuring 0.78 cm. There is disc extending to the neuroforamina causing mild bilateral stenosis without evidence of neural impingement. There is mild facet arthropathy with mild synovitis. L3-L4: There is mild disc degeneration with any other disc bulge asymmetric to left causing mild subarticular recess stenosis with superimposed congenitally short pedicles causing a moderately severe spinal canal stenosis with thecal sac average of 0.65 cm. There is disc extending to the neuroforamina causing mild bilateral stenosis without evidence of neural impingement. There is mild facet arthropathy with mild synovitis. L4-L5: There is mild disc degeneration with annular disc bulge asymmetric to the right causing mild subarticular recess stenosis, with superimposed congenitally short pedicles causing a severe spinal canal stenosis with thecal sac hemorrhage and 0.46 cm. There is disc extending to the neuroforamina causing mild bilateral stenosis without evidence of neural impingement. There is minimal facet arthropathy with mild synovitis. L5-S1: Moderate disc degeneration within the disc bulge flattening the ventral thecal sac, with disc and osteophyte extending to the neuroforamina causing a moderately severe right and mild left stenosis with impingement of the right L5 nerve root ganglion. There is mild facet arthropathy with mild synovitis. IMPRESSION: 1. Moderate disc degeneration at L1-L2 and L5-S1 with mild disc degeneration at L2-3, L3-4 and L4-5 with annular disc bulging flattening the ventral thecal sac and causing mild subarticular recess stenosis at L1-2, L2-3, L3-4 and L4-5 without evidence of neural impingement. 2. 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 3. There is mild bilateral L2-3, mild bilateral L3-4, mild bilateral L4- 5 and moderately severe right and mild left L5-S1 neuroforaminal stenosis with impingement of the right L5 nerve root ganglion. 4. There is minimal to mild facet arthropathy with mild synovitis. 5. No evidence of fracture, infection, tumor or arachnoiditis. Electronically signed by: Ivelisse Fajardo MD 11/27/23 01:25 AM
[2023-11-27] MEDS: INSULIN ASPART PER UNIT CHARGE SC SCH (01:38)
[2023-11-27] MEDS: CLOPIDOGREL BISULFATE 300 MG TAB PO STA (01:50)
[2023-11-27 04:06] LABS: Basophils # (auto) 0.05 K/uL (0.00-0.20); Basophils % (auto) 0.9 %; Eosinophils # (auto) 0.14 K/uL (0.00-0.50); Eosinophils % (auto) 2.4 %; Hematocrit (blood only) 38.2 % (42.0-52.0); Hemoglobin 13.2 g/dl (14.0-18.0); Immature Granulocytes # (auto) 0.01 K/uL (0.01-0.20); Immature Granulocytes % (auto) 0.2 %; Lymphocytes # (auto) 1.92 K/uL (1.20-3.40); Lymphocytes % (auto) 33.2 %; Mean Corpuscular Hemoglobin 28.5 pg (25.0-34.0); Mean Corpuscular Hgb Conc 34.6 g/dL (32.0-36.0); Mean Corpuscular Volume 82.5 fL (80.0-100.0); Mean Platelet Volume 11.4 fL (9.4-12.4); Monocytes # (auto) 0.49 K/uL (0.11-0.59); Monocytes % (auto) 8.5 %; Neutrophils # (auto) 3.17 K/uL (1.40-6.50); Neutrophils % (auto) 54.8 %; Platelet Count 207 K/uL (130-400); RDW Coefficient of Variation 13.2 % (11.5-14.5); RDW Standard Deviation 39.2 fL (36.4-46.3); Red Blood Count 4.63 M/uL (4.70-6.10); White Blood Count 5.78 K/ul (4.8-10.8)
[2023-11-27 04:25] LABS: BUN Creatinine Ratio 9.8 (10-20); Chol HDL Ratio 2.3 (0-5); Creatinine Clr Calc Pharmacy 105.4 ml/min; Est GFR (African American) 113.8 ml/min; Est GFR (Non-African American) 98.2 ml/min; Potassium 3.4 mmol/L (3.5-5.1)
--- NOTE | 2023-11-27 04:27 | Electrocardiogram Report ---
Test Reason : Blood Pressure : / mmHG Vent. Rate : 072 BPM Atrial Rate : 072 BPM P-R Int : 180 ms QRS Dur : 112 ms QT Int : 378 ms P-R-T Axes : 041 -54 076 degrees QTc Int : 413 ms Normal sinus rhythm Incomplete right bundle branch block Left anterior fascicular block Abnormal ECG When compared with ECG of 26-JAN-2016 18:19, ST no longer elevated in Anterior leads QT has shortened Confirmed by Omega Goss ([id number]) on 11/27/2023 4:26:54 AM Referred By: Confirmed By:Omega Goss
[2023-11-27] MEDS: PSYLLIUM or GUAR GUM FIBER 4GM PACKET PO SCH (08:34)
[2023-11-27] MEDS: TAMSULOSIN HCL 0.4 MG CAP PO SCH (08:34)
[2023-11-27] MEDS: ENOXAPARIN INJ 40 MG/0.4 ML SYR SQ SCH (08:34)
[2023-11-27] MEDS: METOPROLOL SUCC 25MG EXT REL TAB PO SCH (08:35)
[2023-11-27] MEDS: PANTOprazole 40 MG TAB PO SCH (08:35)
[2023-11-27] MEDS: GABAPENTIN 300 MG CAP PO SCH (08:36)
[2023-11-27] MEDS: OMEGA-3 (PURIFIED FISH OIL) 1 GM CAP PO SCH (08:37)
[2023-11-27] MEDS: FENOFIBRATE NANOCRYSTALLIZED 145 MG TABLET PO SCH (08:38)
[2023-11-27] MEDS: FINASTERIDE 5 MG TAB PO SCH (08:38)
[2023-11-27] MEDS: DOCUSATE SODIUM 100 MG CAP PO SCH (08:39)
[2023-11-27] MEDS: BACLOFEN 10 MG TAB PO SCH (08:39)
[2023-11-27] MEDS: FLUTICASONE PROPIONATE NA SPR 16 GM BTL SCH (08:40)
[2023-11-27] MEDS: ASPIRIN 81 MG CHEW PO SCH (08:40)
--- NOTE | 2023-11-27 13:11 | Neurology Consultation ---
Date of Consultation November 27, 2023 Assessment & Plan (1) Acute ischemic stroke: Acute small vessel ischemic stroke Recommend continued stroke work up to include the following: Echocardiogram as part of complete stroke workup Continue frequent neurological assessments Obtain stat CT brain without contrast for any acute neurological decline Continue to monitor/control blood pressure & blood glucose Continue to monitor telemetry closely Recommend ZioPatch at DC if no evidence or arrhythmia during inpatient mon itoring Metabolic workup should include hgbA1c, fasting lipids, homocysteine, TSH, D Dimer Recommend DAPT for at least 3 weeks Recommend high dose statin therapy indefinitely if tolerated Ok from neurology perspective for VTE prophylaxis PT/OT/SLT to eval and treat Recommend continue positive airway pressure mask QHS Telehealth Consultation Telehealth Information Telehealth Information: I performed this visit using a real-time telehealth connection between my location and the patients location ([facility]). After connecting through interactive tele-video, patient was identified by name and date of and/or wristband check.Patient (or authorized healthcare call center support representative) was informed that this was a telemedicine visit and it was being conducted confidentially over secure lines. My office door was closed and no one else was present in the room with me.Patient (or authorized healthcare call center support representative) provided consent to proceed with the visit, expressed an understanding of privacy and security of the telemedicine visit, and gave permission to have a hospital call center support representative in the room in order to assist with the visit and to conduct portions of the visit, as needed. I informed the patient (or authorized healthcare call center support representative) that I reviewed their record and presented the opportunity for them to ask any questions regarding the visit today. The patient agreed to participate. History of Present Illness Reason for Consultation: Stroke Requesting Physician: Dr. Abdul Attending Physician: Pasquale Abdul MD History of Present Illness 58yo male presented with acute onset left sided weakness and feeling of dizziness/vertigo. He reported chronic left sided weakness and reported that he had a headache in [place] and felt dizzy but those symptoms improved. He has a significant hx of CAD, CABG, HTN, hyperlipidemia, AURE chronic lumbago and unfortunately statin intolerance. He is reportedly adherent with undergoing tx with PCSK9 inhibitor. He notes feeling worsening ambulatory function and left sided weakness today. He has already undergone MRI brain revealing small area of acute infarct in the right ev. He has undergone CTA head and neck yesterday revealing no overt evidence of LVO or significant/flow limiting stenosis. I have performed televideo consultation, at bedside. He is alert & oriented; able to answer all questions appropriately, name objects on televideo monitor, repeat phrases and perform complex/embedded commands without deficit. Neurological exam reveals left hemiparesis and dysmetria. No reported dysphagia or dysarthria. Denies vision changes or dizziness at this time. Allergies Allergy/AdvReac Type Severity Reaction Status Date / Time JOEL Inhibitors Allergy Intermediate HIVES/CHILL Verified 11/26/23 16:39 S Sulfa (Sulfonamide Allergy Intermediate "SULFA Verified 11/26/23 16:40 Antibiotics) DRUGS": RASH, HIVES albuterol Allergy Mild RASH Verified 11/26/23 16:39 rosuvastatin [From Crestor] AdvReac Intermediate Joint Pain Verified 11/26/23 16:39 Home Medications Medication Instructions Recorded Confirmed Type albuterol sulfate 90 mcg/actuation 2 puff inhalation Q4 PRN Shortness 09/28/22 11/26/23 History aerosol inhaler (Ventolin HFA) Of Breath Or Wheezing aspirin 81 mg chewable tablet 81 mg PO DAILY 09/28/22 11/26/23 History cholecalciferol (vitamin D3) 50 50 mcg PO DAILY 09/28/22 11/26/23 History mcg (2,000 unit) capsule evolocumab 140 mg/mL subcutaneous 140 mg subcut .[id number] 09/28/22 11/26/23 History pen injector fenofibrate nanocrystallized 145 145 mg PO DAILY 09/28/22 11/26/23 History mg tablet (Tricor) fluticasone propionate 50 2 spray intranasal DAILY 09/28/22 11/26/23 History mcg/actuation nasal spray,suspension icosapent ethyl 1 gram capsule 2 g PO BID 09/28/22 11/26/23 History (Vascepa) melatonin 10 mg disintegrating 10 mg PO HS Insomnia 09/28/22 11/26/23 History tablet metoprolol succinate 25 mg 25 mg PO DAILY #30 tabs 09/28/22 11/26/23 Rx tablet,extended release 24 hr (Toprol XL) omeprazole 20 mg tablet,delayed 40 mg PO DAILY 09/28/22 11/26/23 History release sildenafil (pulm.hypertension) 20 100 mg PO DAILY PRN Erectile 09/28/22 11/26/23 History mg tablet (Revatio) Dysfunction triamcinolone acetonide 0.1 % 1 applic topical BID PRN Skin 09/28/22 11/26/23 History topical cream Irritation Saccharomyces boulardii 250 mg 250 mg PO BID 11/26/23 11/26/23 History capsule (Florastor) baclofen 10 mg tablet 10 mg PO TID 11/26/23 11/26/23 History codeine 10 mg-guaifenesin 100 mg/5 5 ml PO Q4H PRN Cough 11/26/23 11/26/23 History mL oral liquid docusate sodium 100 mg capsule 100 mg PO BID 11/26/23 11/26/23 History finasteride 5 mg tablet 5 mg PO QAM 11/26/23 11/26/23 History gabapentin 300 mg capsule 300 mg PO TID 11/26/23 11/26/23 History losartan 25 mg tablet 12.5 mg PO DAILY 11/26/23 11/26/23 History metformin 500 mg tablet,extended 1,000 mg PO BID 11/26/23 11/26/23 History release 24 hr oxycodone 5 mg tablet 5 mg PO Q4H PRN Pain 11/26/23 11/26/23 History psyllium husk (with sugar) 2 gram 2 wafer PO DAILY 11/26/23 11/26/23 History oral wafer (Metamucil Fiber Thin) semaglutide 2 mg/dose (8 mg/3 mL) 2 mg subcut WK 11/26/23 11/26/23 History subcutaneous pen injector (Ozempic) tamsulosin 0.4 mg capsule 0.4 mg PO QAM 11/26/23 11/26/23 History Patient History Medical History (Updated 11/27/23 @ 13:10 by Monty Pretty DO) CAD (coronary atherosclerotic disease) DM2 (diabetes mellitus, type 2) HTN (hypertension) Surgical History (Updated 11/27/23 @ 01:44 by Disha Butts DO) S/P CABG (coronary artery bypass graft) H/O arthroscopy of left knee History of trigger finger History of carpal tunnel surgery H/O shoulder surgery History of back surgery Family History Mother Heart disease Diabetes Dyslipidemia Father Colorectal cancer Kidney disease Social History Smoking Status: Never smoker Hx Alcohol Use: No Hx Substance Use: Yes Last Used Substance: Hours (ago) Last Used Substance Other:: medical marijuana at bedtime Preferred Language: Spanish Communication Ability: Effective Hospital Coordinator Required: No Beliefs That Will Affect Care: None Current Living Situation: Spouse current occupational status: employed 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 Feels Safe at Home: Yes Assistive Devices: CPAP Physical Exam Neurological Examination: Mental Status: Awake and alert. Oriented to person, place, and time. Fluency naming repetition and comprehension appear grossly intact. Affect remains appropriate. CN testing: I: Denies changes in ability to smell II:Reports no changes in visual acuity III/IV/: No evidence of gaze preference, hippus, nystagmus or roving eye movements V: Facial sensation reportedly grossly intact to light touch bilaterally VII: Facial movements appear without evidence of asymmetry VIII: Hearing appears grossly intact to loud voice bilaterally IX/X: Palate appears to elevate symmetrically XI: Shoulder shrug appears symmetric/ grossly intact bilaterally XII: Tongue protrudes midline without evidence of biting Motor exam: Left hemiparesis Sensory: Sensation is reportedly grossly intact throughout Coordination: Difficulty with coordination LUE and LLE Reflexes: Deferred Gait: Deferred Results & Data Vital Signs (Past 12 Hours) Vital Signs Temp Pulse Pulse Resp BP Pulse Ox Pulse Ox 11/27/23 12:11 75 16 161/91 H 97 11/27/23 08:00 71 16 11/27/23 07:32 71 11/27/23 07:09 75 14 11/27/23 04:19 36.5 C 68 17 142/84 H 96 11/27/23 02:22 70 11/27/23 02:01 95 11/27/23 02:01 68 16 146/94 H 96 O2 Del Method O2 Del Method O2 Flow Rate 11/27/23 12:11 Room Air 11/27/23 08:00 11/27/23 07:32 11/27/23 07:09 11/27/23 04:19 Room Air 11/27/23 02:22 11/27/23 02:01 Room Air 0 11/27/23 02:01 Room Air Laboratory Results Abnormal lab results 11/26/23 11/27/23 11/27/23 Range/Units 15:25 00:52 03:17 RBC 4.63 L (4.70-6.10) M/uL Hgb 13.2 L (14.0-18.0) g/dl Hct 40.8 L 38.2 L (42.0-52.0) % Potassium 3.4 L (3.5-5.1) mmol/L Chloride 109 H 108 H (98-107) mmol/L BUN/Creatinine Ratio 9.8 L (10-20) Glucose 126 H (70-99(Fasting)) mg/dl POC Glucose 105 H (70-99) mg/dl 11/27/23 Range/Units 07:16 RBC (4.70-6.10) M/uL Hgb (14.0-18.0) g/dl Hct (42.0-52.0) % Potassium (3.5-5.1) mmol/L Chloride (98-107) mmol/L BUN/Creatinine Ratio (10-20) Glucose (70-99(Fasting)) mg/dl POC Glucose 103 H (70-99) mg/dl Diagnostic Findings Head CT 11/26/23 15:12 CT OF THE HEAD WITHOUT CONTRAST CLINICAL HISTORY: Vertigo. COMPARISON STUDY: Head CT January 31, 2009. CT DOSE: 625.8 mGy.cm TECHNIQUE: Helical axial images of the head were obtained without IV contrast. Automated exposure control was utilized for the study. A dose lowering technique was utilized adhering to the principles of ALARA. FINDINGS: No acute intracranial hemorrhage, midline shift or mass effect is present. The ventricular system is unremarkable. The basal cisterns are patent. No extra-axial collections are present. There are no findings to suggest acute dural sinus thrombosis or acute territorial infarct. No significant calvarial abnormalities are present. Visualized portions of the sinuses and mastoid air cells are clear. IMPRESSION: No acute intracranial findings. ACT 112: Negative or not required by law. Electronically signed by: Pro Duff M.D. 11/26/2023 3:43 PM Head CTA 11/26/23 18:16 CTA ANGIOGRAPHY OF THE HEAD CLINICAL HISTORY: villagran, dizzy, LUE weakness COMPARISON STUDY: Head CT performed earlier today. TECHNIQUE: Helical axial images of the head were obtained following uneventful intravenous administration of 119 cc of Optiray. Sagittal and coronal reconstructions were viewed as well as maximal intensity projections on an independent 3-D workstation. Automated exposure control was utilized for the study. A dose lowering technique was utilized adhering to the principles of ALARA. CT DOSE: 518.43 mGy.cm FINDINGS: No acute intracranial hemorrhage is identified on this contrast enhanced study. Ventricular system is normal. Basal cisterns are patent. There are no extra-axial collections. The bilateral M1, M2, A1 and A2 segments are patent. There is mild plaque within the cavernous carotids without stenosis. No vessel occlusion is identified. There is no intracranial aneurysm. Posterior circulation is intact. Major dural sinuses are patent. IMPRESSION: No vessel occlusion. No intracranial aneurysm. ACT 112: Negative or not required by law. Electronically signed by: Pro Duff M.D. 11/26/2023 7:38 PM Neck CTA 11/26/23 18:16 CT ANGIOGRAPHY OF THE NECK WITH CONTRAST CLINICAL HISTORY: Headache, dizzy, LUE weakness. COMPARISON STUDY: No previous studies for comparison. Technique: CT angiography of the carotid and vertebral arteries was obtained using Optiray and 3D reconstruction on an independent workstation. NASCET criteria was utilized. Automated exposure control was utilized for the study. A dose lowering technique was utilized adhering to the principles of ALARA. Findings: Visualized portions of the lung apices are unremarkable. There is no cervical spine fracture. No cervical lymphadenopathy is present. The bilateral common carotid, cervical internal carotid and vertebral arteries are patent. No stenosis or dissection within these vessels is identified. There is minimal plaque within the bilateral carotid bifurcations. IMPRESSION: No stenosis or dissection within the bilateral common carotid, cervical internal carotid or vertebral arteries. ACT 112: Negative or not required by law. Electronically signed by: Pro Duff M.D. 11/26/2023 7:30 PM Brain MRI 11/26/23 21:27 CR Exam(s): MRI HEAD Without Contrast EXAM: MR Head Without Intravenous Contrast CLINICAL HISTORY: Reason for exam: l sided weakness. TECHNIQUE: Magnetic resonance images of the head/brain without intravenous contrast in multiple planes. COMPARISON: Comparison made to prior CT from November 26, 2023. FINDINGS: Brain: There is a small acute ischemic injury within the right ev without evidence of hemorrhagic transformation. Minimal nonspecific changes. No mass. No hemorrhage. The flow voids at the base of the brain are intact Ventricles: Unremarkable. No ventriculomegaly. Bones/joints: Unremarkable. No acute fracture. Sinuses: Unremarkable as visualized. No acute sinusitis. Mastoid air cells: Unremarkable as visualized. No mastoid effusion. Orbits: Unremarkable as visualized. IMPRESSION: There is a small acute ischemic right ev. Communications: Verify Receipt Electronically signed by: Ivelisse Fajardo MD 11/27/23 01:02 AM Lumbar Spine MRI 11/26/23 21:27 Exam(s): MRI L SPINE Without Contrast EXAM: MR Lumbar Spine Without Intravenous Contrast CLINICAL HISTORY: Reason for exam: back pain, leg weakness. TECHNIQUE: Magnetic resonance images of the lumbar spine without intravenous contrast in multiple planes. COMPARISON: Comparison made to prior lumbar spine MRI from November 29, 2015. FINDINGS: Vertebrae: There are 5 lumbar type vertebral bodies with a normal lumbar lordosis. There is normal vertebral body height and alignment. The bone marrow signal is heterogeneous with areas of focal fat or venous malformations and reactive end plate changes. No acute fracture. 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 Spinal cord: The conus is normal size, shape and signal characteristics. To L1-L2. Soft tissues: Moderate atrophy of the psoas, paraspinous intraspinous musculature. The aorta and IVC flow voids are intact. The visualized kidneys are unremarkable. DISCS/SPINAL CANAL/NEURAL FORAMINA: L1-L2: Moderate degeneration of the disc bulge asymmetric to the right causing mild subarticular recess stenosis with superimposed congenitally short pedicles causing a mild spinal canal stenosis with thecal sac hemorrhage and 0.93 cm clear. There is disc extension of the neuroforamina without evidence of impingement or significant stenosis. There is mild facet arthropathy with mild synovitis. L2-L3: There is mild disc degeneration with annular disc bulge causing a mild subarticular recess stenosis with superimposed congenitally short pedicles causing a mild spinal canal stenosis with thecal sac area measuring 0.78 cm. There is disc extending to the neuroforamina causing mild bilateral stenosis without evidence of neural impingement. There is mild facet arthropathy with mild synovitis. L3-L4: There is mild disc degeneration with any other disc bulge asymmetric to left causing mild subarticular recess stenosis with superimposed congenitally short pedicles causing a moderately severe spinal canal stenosis with thecal sac average of 0.65 cm. There is disc extending to the neuroforamina causing mild bilateral stenosis without evidence of neural impingement. There is mild facet arthropathy with mild synovitis. L4-L5: There is mild disc degeneration with annular disc bulge asymmetric to the right causing mild subarticular recess stenosis, with superimposed congenitally short pedicles causing a severe spinal canal stenosis with thecal sac hemorrhage and 0.46 cm. There is disc extending to the neuroforamina causing mild bilateral stenosis without evidence of neural impingement. There is minimal facet arthropathy with mild synovitis. L5-S1: Moderate disc degeneration within the disc bulge flattening the ventral thecal sac, with disc and osteophyte extending to the neuroforamina causing a moderately severe right and mild left stenosis with impingement of the right L5 nerve root ganglion. There is mild facet arthropathy with mild synovitis. IMPRESSION: 1. Moderate disc degeneration at L1-L2 and L5-S1 with mild disc degeneration at L2-3, L3-4 and L4-5 with annular disc bulging flattening the ventral thecal sac and causing mild subarticular recess stenosis at L1-2, L2-3, L3-4 and L4-5 without evidence of neural impingement. 2. 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 3. There is mild bilateral L2-3, mild bilateral L3-4, mild bilateral L4- 5 and moderately severe right and mild left L5-S1 neuroforaminal stenosis with impingement of the right L5 nerve root ganglion. 4. There is minimal to mild facet arthropathy with mild synovitis. 5. No evidence of fracture, infection, tumor or arachnoiditis. Electronically signed by: Ivelisse Fajardo MD 11/27/23 01:25 AM Medications Administered Home Medications Medication Instructions Recorded Confirmed Last Taken albuterol sulfate 90 mcg/actuation 2 puff inhalation Q4 PRN Shortness 09/28/22 11/26/23 Unknown aerosol inhaler (Ventolin HFA) Of Breath Or Wheezing aspirin 81 mg chewable tablet 81 mg PO DAILY 09/28/22 11/26/23 11/26/23 cholecalciferol (vitamin D3) 50 50 mcg PO DAILY 09/28/22 11/26/23 11/26/23 mcg (2,000 unit) capsule evolocumab 140 mg/mL subcutaneous 140 mg subcut .[id number] 09/28/22 11/26/23 Unknown pen injector fenofibrate nanocrystallized 145 145 mg PO DAILY 09/28/22 11/26/23 11/26/23 mg tablet (Tricor) fluticasone propionate 50 2 spray intranasal DAILY 09/28/22 11/26/23 11/26/23 mcg/actuation nasal spray,suspension icosapent ethyl 1 gram capsule 2 g PO BID 09/28/22 11/26/23 11/26/23 08:00 (Vascepa) melatonin 10 mg disintegrating 10 mg PO HS Insomnia 09/28/22 11/26/23 11/25/23 tablet metoprolol succinate 25 mg 25 mg PO DAILY #30 tabs 09/28/22 11/26/23 11/26/23 tablet,extended release 24 hr (Toprol XL) omeprazole 20 mg tablet,delayed 40 mg PO DAILY 09/28/22 11/26/23 11/26/23 release sildenafil (pulm.hypertension) 20 100 mg PO DAILY PRN Erectile 09/28/22 11/26/23 Unknown mg tablet (Revatio) Dysfunction triamcinolone acetonide 0.1 % 1 applic topical BID PRN Skin 09/28/22 11/26/23 Unknown topical cream Irritation Saccharomyces boulardii 250 mg 250 mg PO BID 11/26/23 11/26/23 11/26/23 08:00 capsule (Florastor) baclofen 10 mg tablet 10 mg PO TID 11/26/23 11/26/23 11/26/23 08:00 codeine 10 mg-guaifenesin 100 mg/5 5 ml PO Q4H PRN Cough 11/26/23 11/26/23 Unknown mL oral liquid docusate sodium 100 mg capsule 100 mg PO BID 11/26/23 11/26/23 11/26/23 08:00 finasteride 5 mg tablet 5 mg PO QAM 11/26/23 11/26/23 11/26/23 gabapentin 300 mg capsule 300 mg PO TID 11/26/23 11/26/23 11/26/23 08:00 losartan 25 mg tablet 12.5 mg PO DAILY 11/26/23 11/26/23 11/26/23 metformin 500 mg tablet,extended 1,000 mg PO BID 11/26/23 11/26/23 11/26/23 08:00 release 24 hr oxycodone 5 mg tablet 5 mg PO Q4H PRN Pain 11/26/23 11/26/23 Unknown psyllium husk (with sugar) 2 gram 2 wafer PO DAILY 11/26/23 11/26/23 11/26/23 oral wafer (Metamucil Fiber Thin) semaglutide 2 mg/dose (8 mg/3 mL) 2 mg subcut WK 11/26/23 11/26/23 Unknown subcutaneous pen injector (Ozempic) tamsulosin 0.4 mg capsule 0.4 mg PO QAM 11/26/23 11/26/23 11/26/23 Active Medications Generic Name Dose Route Start Last Admin Trade Name Freq PRN Reason Stop Dose Admin Aspirin 81 mg 11/27/23 09:00 11/27/23 08:40 Aspirin 81 Mg Chew PO 12/27/23 08:59 81 mg DAILY JEAN CARLOS Administration Baclofen 10 mg 11/27/23 09:00 11/27/23 08:39 Baclofen 10 Mg Tab PO 12/27/23 08:59 10 mg TID JEAN CARLOS Administration Docusate Sodium 100 mg 11/27/23 09:00 11/27/23 08:39 Docusate Sodium 100 Mg Cap PO 12/27/23 08:59 100 mg BID JEAN CARLOS Administration Enoxaparin Sodium 40 mg 11/27/23 09:00 11/27/23 08:34 Enoxaparin Inj 40 Mg/0.4 Ml Syr SQ 12/27/23 08:59 40 mg QAM JEAN CARLOS Administration Fenofibrate 145 mg 11/27/23 09:00 11/27/23 08:38 Fenofibrate Nanocrystallized 145 Mg Tablet PO 12/27/23 08:59 145 mg DAILY JEAN CARLOS Administration Finasteride 5 mg 11/27/23 09:00 11/27/23 08:38 Finasteride 5 Mg Tab PO 12/27/23 08:59 5 mg QAM JEAN CARLOS Administration Fish Oil 2 gm 11/27/23 09:00 11/27/23 08:37 [place]-3 (Purified Fish Oil) 1 Gm Cap PO 12/27/23 08:59 2 gm BID JEAN CARLOS Administration Fluticasone Propionate 2 sprays 11/27/23 09:00 11/27/23 08:40 Fluticasone Propionate Na Spr 16 Gm Btl NA 12/27/23 08:59 2 sprays DAILY JEAN CARLOS Administration Gabapentin 300 mg 11/27/23 09:00 11/27/23 08:36 Gabapentin 300 Mg Cap PO 12/27/23 08:59 300 mg TID JEAN CARLOS Administration Insulin Aspart 0 units 11/27/23 01:00 11/27/23 08:41 Insulin Aspart Per Unit Charge SC 12/27/23 00:59 Not Given ACHS JEAN CARLOS Lorazepam 0.5 mg 11/26/23 21:35 11/26/23 22:38 Lorazepam 0.5 Mg Tab PO 12/26/23 21:34 0.5 mg TID PRN Administration Anxiety Metoprolol Succinate 25 mg 11/27/23 09:00 11/27/23 08:35 Metoprolol Succ 25mg Ext Rel Tab PO 12/27/23 08:59 25 mg DAILY JEAN CARLOS Administration Pantoprazole Sodium 40 mg 11/27/23 09:00 11/27/23 08:35 Pantoprazole 40 Mg Tab PO 12/27/23 08:59 40 mg DAILY JEAN CARLOS Administration Psyllium Hydrophilic Mucilloid 2 gm 11/27/23 09:00 11/27/23 08:34 Psyllium Or Guar Gum Fiber 4gm Packet PO 12/27/23 08:59 2 gm DAILY JEAN CARLOS Administration Tamsulosin HCl 0.4 mg 11/27/23 09:00 11/27/23 08:34 Tamsulosin Hcl 0.4 Mg Cap PO 12/27/23 08:59 0.4 mg QAM JEAN CARLOS Administration
--- NOTE | 2023-11-27 15:25 | Pharmacy Report ---
- Date of Service November 27, 2023 - Pharmacy CVA/TIA Medication Review Medications to Prevent Stroke handout has been added to the patients discharge packet. Antiplatelet(s) * aspirin 81mg daily * clopidogrel 75mg daily * Neurology recommends DAPT for at least 3 weeks Cholesterol * High intensity statin: atorvastatin 80 mg daily DVT Prophylaxis * Enoxaparin SQ Therapeutic Anticoagulation * No history of Afib/Aflutter noted Type 2 Diabetes * Patient has T2DM and patient is prescribed semaglutide
[2023-11-27] MEDS: ATORVASTATIN 40 MG TAB PO SCH (15:54)
--- NOTE | 2023-11-27 17:08 | Hospitalist Progress Note ---
Date of Service November 27, 2023 Assessment & Plan (1) TIA (transient ischemic attack): (2) Acute ischemic stroke: Plan: Patient presents with weakness on left hand and leg for [address] head without contrastno acute intracranial findings CTA head and neckno stenosis/dissection Brain MRIsmall acute ischemic stroke of right ev Evaluated by neurology; recommend aspirin and Plavix for 3 weeks; then aspirin alone. Patient not tolerant with statin; on Repatha as outpatient. LDL of 30 Mg per DL. Telemonitoring PT OT eval Neurochecks Lower back pain Severe spinal stenosis Lumbar radiculopathy MRI lumbar spine shows severe spinal canal stenosis at L4-L5, neuroforaminal stenosis with impingement of the right L5 nerve root ganglion [facility] consulted; appreciate recommendation Currently on gabapentin and baclofen, continue Chronic conditions; hyperlipidemia, statin intolerance, patient on PCSK9 inhibitor AURE on CPAP DM 2 on oral medications, well-controlled as of recent hemoglobin A1c of 5.30 July 2023 Discussed plan of care with patient and patient's at bedside. Both are agreeable with the plan. Answer questions/queries Time spent evaluating patient, direct bedside care, chart review, placing orders, interpretation of diagnostic studies, discussion with consultants, patient, and family members, as well as other required patient management activities is 50 minutes Please note the above document was generated using voice recognition software. It may contain grammatical, syntax or spelling errors. Any formal questions or concerns about the content, text or information contained within the body of this dictation should be directly addressed to the provider for clarification Admission and Anticipated Discharge Date Admission Date: November 27, 2023 Subjective Patient continues to report left-sided weakness in his hands and legs Denies any dizziness or vertigo No significant events overnight Review of Systems Review of Systems: All systems reviewed & are unremarkable except as noted in Subjective Physical Exam Physical Exam: Constitutional: Alert oriented x 3; not in distress. Respiratory: normal respiratory effort, lungs clear to auscultation, no wheeze, rales, rhonchi. Normal insp/exp effort, no accessory muscle use Cardiovascular: RRR, no murmur, no edema Vessels: no JVD or carotid bruit Chest: normal inspection of chest Abdomen: normal bowel sounds, soft, nontender, no hepatosplenomegaly Musculoskeletal: no cyanosis or clubbing, extremities motor strength 5/5 Skin: no rashes, warm and dry normal turgor Neurologic: PERRL, EOMI, accommodation nl, no face palsy, no dysarthria CN's II- XI intact bilaterally. Strength on the left arm and leg4/5 Psychiatric: A+Ox3, euthymic affect Results & Data Results & Data Vital Signs (Past 12 Hours) Vital Signs Temp Pulse Pulse Resp BP Pulse Ox O2 Del Method 11/27/23 15:30 83 11/27/23 15:26 36.6 C 76 18 147/85 H 97 Room Air 11/27/23 14:01 83 11/27/23 13:25 37.0 C 81 16 148/82 H 98 Room Air 11/27/23 12:11 75 16 161/91 H 97 Room Air 11/27/23 08:00 71 16 11/27/23 07:32 71 11/27/23 07:09 75 14
[2023-11-27] MEDS: MAGNESIUM OXIDE 400 MG TAB PO SCH (17:47)
[2023-11-27] MEDS: MELATONIN 3 MG TAB PO SCH (20:49)
[2023-11-28 06:52] LABS: Basophils # (auto) 0.05 K/uL (0.00-0.20); Basophils % (auto) 0.7 %; Eosinophils # (auto) 0.15 K/uL (0.00-0.50); Eosinophils % (auto) 2.2 %; Hematocrit (blood only) 39.2 % (42.0-52.0); Hemoglobin 13.5 g/dl (14.0-18.0); Immature Granulocytes # (auto) 0.02 K/uL (0.01-0.20); Immature Granulocytes % (auto) 0.3 %; Lymphocytes # (auto) 2.13 K/uL (1.20-3.40); Lymphocytes % (auto) 31.8 %; Mean Corpuscular Hemoglobin 28.5 pg (25.0-34.0); Mean Corpuscular Hgb Conc 34.4 g/dL (32.0-36.0); Mean Corpuscular Volume 82.9 fL (80.0-100.0); Mean Platelet Volume 11.2 fL (9.4-12.4); Monocytes # (auto) 0.55 K/uL (0.11-0.59); Monocytes % (auto) 8.2 %; Neutrophils # (auto) 3.79 K/uL (1.40-6.50); Neutrophils % (auto) 56.8 %; Platelet Count 204 K/uL (130-400); RDW Coefficient of Variation 13.2 % (11.5-14.5); RDW Standard Deviation 39.6 fL (36.4-46.3); Red Blood Count 4.73 M/uL (4.70-6.10); White Blood Count 6.69 K/ul (4.8-10.8)
[2023-11-28 07:17] LABS: BUN Creatinine Ratio 14.1 (10-20); Calcium 8.6 mg/dl (8.6-10.3); Est GFR (African American) 106.6 ml/min; Potassium 3.8 mmol/L (3.5-5.1)
[2023-11-28] MEDS: CLOPIDOGREL BISULFATE 75 MG TAB PO SCH (08:05)
[2023-11-28] MEDS ORDERED: STROKE PATIENT DISCHARGE STA (13:10)
--- NOTE | 2023-11-28 15:56 | Orthopedic Consultation ---
Date of Service November 28, 2023 History of Present Illness Reason for Consultation: Chronic low back pain, left upper and lower extremity weakness. Requesting Physician: . Attending Physician: Pasquale Abdul MD 58-year-old male presents emerged from due to concern for increased left arm weakness and dizziness. Patient has a history of left lower extremity weakness due to chronic low back problems for which she has had multiple treatments. He states when he awoke this morning he noted that the left arm was weaker as well as it was more difficult to shower. noticed the arm seem to drop to his side more briskly than usual. Patient states he also had a headache on the top of his head and this morning felt very dizzy. He states he does have history of vertigo in the initial symptoms felt similar to that. He states that seem to resolve around 10 AM. Patient denies any recent trauma or change in activity. Patient does chronically have difficulty walking due to his radicular symptoms from the low back and intermittent left leg pain and numbness. Patient denies any nausea or vomiting, chest pain, shortness of breath, abdominal pain, or fevers. No recent illness. Patient also has a prior history of a triple bypass. Patient reports to me that he has undergone treatment with pain management in [place] for chronic low back pain. He is also been evaluated in [place] for the same symptoms, but has not had symptoms similar to this. Exam reveals the patient to have no increase in low back pain, his lower lumbar spine is unremarkable relative to any changes outside of some limited areas of low back pain lumbosacral region. He has intact strength in the right upper and lower extremity, on the left side he is weaker in the 3-4 out of 5 range with difficulties with coordination. EXAM: MR Lumbar Spine Without Intravenous Contrast from November 26, 2023 CLINICAL HISTORY: Reason for exam: back pain, leg weakness. TECHNIQUE: magnetic resonance images of the lumbar spine without intravenous contrast in multiple planes. COMPARISON: Comparison made to prior lumbar spine MRI from November 29, 2015. FINDINGS: Vertebrae: There are 5 lumbar type vertebral bodies with a normal lumbar lordosis. There is normal vertebral body height and alignment. The bone marrow signal is heterogeneous with areas of focal fat or venous malformations and reactive end plate changes. No acute fracture. 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 Spinal cord: The conus is normal size, shape and signal characteristics. To L1-L2. Soft tissues: Moderate atrophy of the psoas, paraspinous intraspinous musculature. The aorta and IVC flow voids are intact. The visualized kidneys are unremarkable. DISCS/SPINAL CANAL/NEURAL FORAMINA: L1-L2: Moderate degeneration of the disc bulge asymmetric to the right causing mild subarticular recess stenosis with superimposed congenitally short pedicles causing a mild spinal canal stenosis with thecal sac hemorrhage and 0.93 cm clear. There is disc extension of the neuroforamina without evidence of impingement or significant stenosis. There is mild facet arthropathy with mild synovitis. L2-L3: There is mild disc degeneration with annular disc bulge causing a mild subarticular recess stenosis with superimposed congenitally short pedicles causing a mild spinal canal stenosis with thecal sac area measuring 0.78 cm. There is disc extending to the neuroforamina causing mild bilateral stenosis without evidence of neural impingement. There is mild facet arthropathy with mild synovitis. L3-L4: There is mild disc degeneration with any other disc bulge asymmetric to left causing mild subarticular recess stenosis with superimposed congenitally short pedicles causing a moderately severe spinal canal stenosis with thecal sac average of 0.65 cm. There is disc extending to the neuroforamina causing mild bilateral stenosis without evidence of neural impingement. There is mild facet arthropathy with mild synovitis. L4-L5: There is mild disc degeneration with annular disc bulge asymmetric to the right causing mild subarticular recess stenosis, with superimposed congenitally short pedicles causing a severe spinal canal stenosis with thecal sac hemorrhage and 0.46 cm. There is disc extending to the neuroforamina causing mild bilateral stenosis without evidence of neural impingement. There is minimal facet arthropathy with mild synovitis. L5-S1: Moderate disc degeneration within the disc bulge flattening the ventral thecal sac, with disc and osteophyte extending to the neuroforamina causing a moderately severe right and mild left stenosis with impingement of the right L5 nerve root ganglion. There is mild facet arthropathy with mild synovitis. IMPRESSION: 1. Moderate disc degeneration at L1-L2 and L5-S1 with mild disc degeneration at L2-3, L3-4 and L4-5 with annular disc bulging flattening the ventral thecal sac and causing mild subarticular recess stenosis at L1-2, L2-3, L3-4 and L4-5 without evidence of neural impingement. 2. 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 3. There is mild bilateral L2-3, mild bilateral L3-4, mild bilateral L4- 5 and moderately severe right and mild left L5-S1 neuroforaminal stenosis with impingement of the right L5 nerve root ganglion. 4. There is minimal to mild facet arthropathy with mild synovitis. 5. No evidence of fracture, infection, tumor or arachnoiditis. MRI listed above from November 26, 2023 from [facility] was reviewed, this my separate interpretation, this reveals limited degenerative changes throughout the lumbar spine with some loss of signal intensity and some slight bulging of disks, this is slightly more so on the right at L4-5, this results in no more th an mild to moderate canal narrowing and foraminal narrowing. Impression: Combination of chronic low back pain with some limited degenerative changes in the lumbar spine, recent findings regarding left upper and lower extremity relative to CVA. Plan: This time I did talk with the patient about the findings on the MRI, I related that at any time after he has been through adequate treatment and rehab from his current neurologic issue, he can certainly follow-up my office but he does already have some spine physicians involved with his care. I related the patient that I be glad to evaluate him though and provide any additional suggestions and he was in agreement with this plan. Allergies Allergy/AdvReac Type Severity Reaction Status Date / Time JOEL Inhibitors Allergy Intermediate HIVES/CHILL Verified 11/26/23 16:39 S Sulfa (Sulfonamide Allergy Intermediate "SULFA Verified 11/26/23 16:40 Antibiotics) DRUGS": RASH, HIVES albuterol Allergy Mild RASH Verified 11/26/23 16:39 rosuvastatin [From Crestor] AdvReac Intermediate Joint Pain Verified 11/26/23 16:39 Home Medications Medication Instructions Recorded Confirmed Type albuterol sulfate 90 mcg/actuation 2 puff inhalation Q4 PRN Shortness 09/28/22 11/26/23 History aerosol inhaler (Ventolin HFA) Of Breath Or Wheezing aspirin 81 mg chewable tablet 81 mg PO DAILY 09/28/22 11/26/23 History cholecalciferol (vitamin D3) 50 50 mcg PO DAILY 09/28/22 11/26/23 History mcg (2,000 unit) capsule evolocumab 140 mg/mL subcutaneous 140 mg subcut .[id number] 09/28/22 11/26/23 History pen injector fenofibrate nanocrystallized 145 145 mg PO DAILY 09/28/22 11/26/23 History mg tablet (Tricor) fluticasone propionate 50 2 spray intranasal DAILY 09/28/22 11/26/23 History mcg/actuation nasal spray,suspension icosapent ethyl 1 gram capsule 2 g PO BID 09/28/22 11/26/23 History (Vascepa) melatonin 10 mg disintegrating 10 mg PO HS Insomnia 09/28/22 11/26/23 History tablet metoprolol succinate 25 mg 25 mg PO DAILY #30 tabs 09/28/22 11/26/23 Rx tablet,extended release 24 hr (Toprol XL) omeprazole 20 mg tablet,delayed 40 mg PO DAILY 09/28/22 11/26/23 History release sildenafil (pulm.hypertension) 20 100 mg PO DAILY PRN Erectile 09/28/22 11/26/23 History mg tablet (Revatio) Dysfunction triamcinolone acetonide 0.1 % 1 applic topical BID PRN Skin 09/28/22 11/26/23 History topical cream Irritation Saccharomyces boulardii 250 mg 250 mg PO BID 11/26/23 11/26/23 History capsule (Florastor) baclofen 10 mg tablet 10 mg PO TID 11/26/23 11/26/23 History codeine 10 mg-guaifenesin 100 mg/5 5 ml PO Q4H PRN Cough 11/26/23 11/26/23 History mL oral liquid docusate sodium 100 mg capsule 100 mg PO BID 11/26/23 11/26/23 History finasteride 5 mg tablet 5 mg PO QAM 11/26/23 11/26/23 History gabapentin 300 mg capsule 300 mg PO TID 11/26/23 11/26/23 History losartan 25 mg tablet 12.5 mg PO DAILY 11/26/23 11/26/23 History metformin 500 mg tablet,extended 1,000 mg PO BID 11/26/23 11/26/23 History release 24 hr oxycodone 5 mg tablet 5 mg PO Q4H PRN Pain 11/26/23 11/26/23 History psyllium husk (with sugar) 2 gram 2 wafer PO DAILY 11/26/23 11/26/23 History oral wafer (Metamucil Fiber Thin) semaglutide 2 mg/dose (8 mg/3 mL) 2 mg subcut WK 11/26/23 11/26/23 History subcutaneous pen injector (Ozempic) tamsulosin 0.4 mg capsule 0.4 mg PO QAM 11/26/23 11/26/23 History clopidogrel 75 mg tablet 75 mg PO QAM 20 days #20 tabs 11/28/23 Rx magnesium oxide 400 mg (241.3 mg 400 mg PO BID 30 days #60 tabs 11/28/23 Rx magnesium) tablet Past Med/Surg History Medical History (Updated 11/27/23 @ 13:10 by Monty Pretty DO) CAD (coronary atherosclerotic disease) DM2 (diabetes mellitus, type 2) HTN (hypertension) Surgical History (Updated 11/27/23 @ 01:44 by Disha Butts DO) S/P CABG (coronary artery bypass graft) H/O arthroscopy of left knee History of trigger finger History of carpal tunnel surgery H/O shoulder surgery History of back surgery Family History Mother Heart disease Diabetes Dyslipidemia Father Colorectal cancer Kidney disease Social History Smoking Status: Never smoker Hx Alcohol Use: No Hx Substance Use: Yes Last Used Substance: Hours (ago) Last Used Substance Other:: medical marijuana at bedtime Preferred Language: [place] Communication Ability: Effective Supervisor [employer] Required: No Beliefs That Will Affect Care: Cultural Current Living Situation: Spouse current occupational status: employed 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 Physical Exam . Results & Data Results & Data Laboratory Results . Diagnostic Findings . PG Care Time/CCT Total # of Minutes Spent Total Time Spent with Patient: Total time spent is greater than 50% in coordination of care (as documented) at patient's floor/unit and/or counseling patient: Coding Level of Care Code 08420 IN/OBS CONSULT LVL 3,45M
--- NOTE | 2023-11-28 15:59 | Discharge Summary ---
Date of Service November 28, 2023 Admission HPI Per Admitting Provider History obtained from patient, family, and records. Medical history significant for CAD status post CABG, hypertension, hyperlipidemia, statin intolerance, AURE on CPAP, DM 2 on oral medications, GERD, chronic back pain status post surgery, past tobacco abuse. Last confinement 2015 under [facility]oped[facility] spine service for thoracic stenosis status post decompression surgery. Patient saw chiropractor yesterday for worsening back pain symptoms without unusual leg weakness. Improved back pain after manipulation. This morning, patient woke up not feeling well. Dizzy and feeling imbalance. Left-sided weakness more than usual. Some left upper extremity numbness. Achy headache symptoms. Patient denies chest pain, SOB symptoms. Patient compliant with home aspirin except that he had to stop medication for an outpatient injection last month. Improving left upper extremity weakness at the ER. 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 Admission Exam Per Admitting Provider GENERAL: Comfortable, pleasant, obese, no respiratory distress SKIN: Normal color, warm HEENT: Bespectacled, [place] palpebral conjunctivae, no ptosis, dry buccal mucosa NECK : Supple, no tenderness CHEST : CTA, no tenderness HEART : RRR, no obvious murmurs ABDOMEN: Some distention, nontender BACK : Minimal low back tenderness EXTREMITIES : No LE swelling/tenderness, no other conspicuous deformities noted NEUROLOGIC : Coherent, no facial asymmetry, MMTS BUE 4/5, LLE 3/5 (chronic as per patient), RLE 4/5 Principal Diagnosis (2) Acute ischemic stroke Discharge Exam Constitutional: Alert oriented x 3; not in distress. Respiratory: normal respiratory effort, lungs clear to auscultation, no wheeze, rales, rhonchi. Normal insp/exp effort, no accessory muscle use Cardiovascular: RRR, no murmur, no edema Vessels: no JVD or carotid bruit Chest: normal inspection of chest Abdomen: normal bowel sounds, soft, nontender, no hepatosplenomegaly Musculoskeletal: no cyanosis or clubbing, extremities motor strength 5/5 Skin: no rashes, warm and dry normal turgor Neurologic: PERRL, EOMI, accommodation nl, no face palsy, no dysarthria CN's II- XI intact bilaterally. Strength on the left arm and leg4/5 Psychiatric: A+Ox3, euthymic affect Discharge Data Allergies Allergy/AdvReac Type Severity Reaction Status Date / Time JOEL Inhibitors Allergy Intermediate HIVES/CHILL Verified 11/26/23 16:39 S Sulfa (Sulfonamide Allergy Intermediate "SULFA Verified 11/26/23 16:40 Antibiotics) DRUGS": RASH, HIVES albuterol Allergy Mild RASH Verified 11/26/23 16:39 rosuvastatin [From Crestor] AdvReac Intermediate Joint Pain Verified 11/26/23 16:39 Consultations 11/26/23 20:37 ED Decision to Admit Stat 11/27/23 01:25 Consult Neurology Routine 11/27/23 13:01 Consult Orthopedic Spine Surgery Routine Ordered Studies 11/26/23 15:12 CT head/brain wo con Stat 11/26/23 18:16 CT angio head w con Stat CT angio neck with con Stat 11/26/23 21:27 MRI Brain [MR brain wo con] Stat MRI Spine [MR lumbar spine wo con] Stat Hospital Course (1) TIA (transient ischemic attack): (2) Acute ischemic stroke: Patient presents with weakness on left hand and leg for [address] head without contrastno acute intracranial findings CTA head and neckno stenosis/dissection Brain MRIsmall acute ischemic stroke of right ev Evaluated by neurology; recommend aspirin and Plavix for 3 weeks; then aspirin alone. Patient not tolerant with statin; on Repatha as outpatient. LDL of 30 Mg per DL. Patient reported improvement on his strength of his left hand and leg during the hospitalization. PT OT evaluation was done; initially recommended rehab. However, patient reported that he would like to go home with home PT OT and assistance by his . Lower back pain Severe spinal stenosis Lumbar radiculopathy MRI lumbar spine shows severe spinal canal stenosis at L4-L5, neuroforaminal stenosis with impingement of the right L5 nerve root ganglion [facility]ospine consulted;Will follow-up with them as outpatient No other medication changes were done. Please note the above document was generated using voice recognition software. It may contain grammatical, syntax or spelling errors. Any formal questions or concerns about the content, text or information contained within the body of this dictation should be directly addressed to the provider for clarification Total Time Total Time Spent Total Time Spent (In Minutes): 45 Total Time Includes: Examination of the Patient, Discharge Planning, Medication Reconciliation, Communication With Other Providers and Other Discharge Plan Discharge Items Patient Disposition: Home - Home Health Services Reason For Visit: TIA Discharge Diagnosis: acute ischemic right ev. Activity: Resume your previous activity Non-emergency contact: Primary Care Provider Call non-emergency contact if: you have any medication questions and your symptoms worsen Follow-up/Referrals: Osiris Aguero PA-C [Physician Assembly Manager] - (Date & Time 12/26/2023 11:20 AM Provider Osiris Aguero PA-C Department Neurology [facility] ) Monty Gillespie MD [Primary Care Provider] - (Date & Time 12/04/2023 11:00 AM Provider Monty Gillespie MD Department [facility] ) Diet: Regular Addtl Attending Provider Instructions: You were admitted to the hospital for a stroke in the right ev. You are evaluated by neurology during the hospitalization. They recommend following medication changes: Take Plavix for next 20 days. A prescription has been sent to your pharmacy. An appointment with your primary care doctor will be set up for sometime next week. Please follow-up with them. You were also prescribed trial of magnesium supplement for the leg cramps cramps. Pending Studies at Discharge: No Stand-Alone Forms: My [facility] [employer], Smoking Cessation Medications and DC Order Prescriptions: New clopidogrel 75 mg Tablet 75 mg PO QAM 20 Days Qty: 20 0RF magnesium oxide 400 mg (241.3 mg magnesium) Tablet 400 mg PO BID 30 Days Qty: 60 0RF Continued triamcinolone acetonide 0.1 % Cream 1 applic TOPICAL BID PRN (Reason: Skin Irritation) aspirin 81 mg Tablet,Chewable 81 mg PO DAILY albuterol sulfate [Ventolin HFA] 90 mcg/actuation Hfa Aerosol Inhaler 2 puff INHALATION Q4 PRN (Reason: Shortness Of Breath Or Wheezing) fluticasone propionate 50 mcg/actuation [place],Suspension 2 spray INTRANASAL DAILY Rx Instructions: administer into each nostril sildenafil (pulm.hypertension) [Revatio] 20 mg Tablet 100 mg PO DAILY PRN (Reason: Erectile Dysfunction) fenofibrate nanocrystallized [Tricor] 145 mg Tablet 145 mg PO DAILY omeprazole 20 mg Tablet,Delayed Release (Dr/Ec) 40 mg PO DAILY cholecalciferol (vitamin D3) 50 mcg (2,000 unit) Capsule 50 mcg PO DAILY icosapent ethyl [Vascepa] 1 gram Capsule 2 g PO BID evolocumab 140 mg/mL Pen Injector 140 mg SUBCUT .[id number] melatonin 10 mg Tablet,Disintegrating 10 mg PO HS metoprolol succinate [Toprol XL] 25 mg tablet extended release 24 hr 25 mg PO DAILY Qty: 30 6RF tamsulosin 0.4 mg capsule 0.4 mg PO QAM baclofen 10 mg tablet 10 mg PO TID losartan 25 mg Tablet 12.5 mg PO DAILY docusate sodium 100 mg Capsule 100 mg PO BID gabapentin 300 mg capsule 300 mg PO TID codeine-guaifenesin 10-100 mg/5 mL Liquid 5 ml PO Q4H PRN (Reason: Cough) metformin 500 mg tablet extended release 24 hr 1,000 mg PO BID finasteride 5 mg tablet 5 mg PO QAM oxycodone 5 mg tablet 5 mg PO Q4H PRN (Reason: Pain) Saccharomyces boulardii [Florastor] 250 mg Capsule 250 mg PO BID Metamucil Fiber Thin 2 gram Wafer 2 wafer PO DAILY Ozempic 2 mg/dose (8 mg/3 mL) pen injector 2 mg SUBCUT WK Discharge Orders: Discharge Order (Routine); Ordered 11/28/23 Ordered By: Pasquale Abdul Admission Data Admit Date/Time: 11/27/23 01:26 Attending Provider: Pasquale Abdul Admit Provider: Adair Ortiz Primary Care Provider: Monty Gillespie Other Providers: Adair Ortiz; Osiris Aguero; Salty Blanchard; Osiris Siegel; Christian Hector; Daniel Barba; Pedro Luis Vital; Monty Claros; Candy Cárdenas; Alli Ramachandran; Jackson Granado; Sydni Henderson; Evin Malhotra; Edie Larry; Angelica Beard; Monty Pretty; Salas Damon Other Interventions: Discharge Summary Assessment (RN) Last Done: 11/28/23 13:34
--- NOTE | 2023-12-02 11:14 | Pharmacy Report ---
Pharmacist Stroke Counseling - Date of Service December 02, 2023 - Scope: Pharmacy has been consulted to provide medication discharge counseling for this patient admitted with ischemic stroke as per the Pharmacist Discharge Counseling for Stroke Patients Protocol. - Medications on Discharge: Home Medications Medication Instructions Recorded Confirmed albuterol sulfate 90 mcg/actuation 2 puff inhalation Q4 PRN Shortness 09/28/22 11/26/23 aerosol inhaler (Ventolin HFA) Of Breath Or Wheezing aspirin 81 mg chewable tablet 81 mg PO DAILY 09/28/22 11/26/23 cholecalciferol (vitamin D3) 50 50 mcg PO DAILY 09/28/22 11/26/23 mcg (2,000 unit) capsule evolocumab 140 mg/mL subcutaneous 140 mg subcut .[id number] 09/28/22 11/26/23 pen injector fenofibrate nanocrystallized 145 145 mg PO DAILY 09/28/22 11/26/23 mg tablet (Tricor) fluticasone propionate 50 2 spray intranasal DAILY 09/28/22 11/26/23 mcg/actuation nasal spray,suspension icosapent ethyl 1 gram capsule 2 g PO BID 09/28/22 11/26/23 (Vascepa) melatonin 10 mg disintegrating 10 mg PO HS Insomnia 09/28/22 11/26/23 tablet omeprazole 20 mg tablet,delayed 40 mg PO DAILY 09/28/22 11/26/23 release sildenafil (pulm.hypertension) 20 100 mg PO DAILY PRN Erectile 09/28/22 11/26/23 mg tablet (Revatio) Dysfunction triamcinolone acetonide 0.1 % 1 applic topical BID PRN Skin 09/28/22 11/26/23 topical cream Irritation Saccharomyces boulardii 250 mg 250 mg PO BID 11/26/23 11/26/23 capsule (Florastor) baclofen 10 mg tablet 10 mg PO TID 11/26/23 11/26/23 codeine 10 mg-guaifenesin 100 mg/5 5 ml PO Q4H PRN Cough 11/26/23 11/26/23 mL oral liquid docusate sodium 100 mg capsule 100 mg PO BID 11/26/23 11/26/23 finasteride 5 mg tablet 5 mg PO QAM 11/26/23 11/26/23 gabapentin 300 mg capsule 300 mg PO TID 11/26/23 11/26/23 losartan 25 mg tablet 12.5 mg PO DAILY 11/26/23 11/26/23 metformin 500 mg tablet,extended 1,000 mg PO BID 11/26/23 11/26/23 release 24 hr oxycodone 5 mg tablet 5 mg PO Q4H PRN Pain 11/26/23 11/26/23 psyllium husk (with sugar) 2 gram 2 wafer PO DAILY 11/26/23 11/26/23 oral wafer (Metamucil Fiber Thin) semaglutide 2 mg/dose (8 mg/3 mL) 2 mg subcut WK 11/26/23 11/26/23 subcutaneous pen injector (Ozempic) tamsulosin 0.4 mg capsule 0.4 mg PO QAM 11/26/23 11/26/23 New Rx's Medication Instructions Recorded metoprolol succinate 25 mg 25 mg PO DAILY #30 tabs 09/28/22 tablet,extended release 24 hr (Toprol XL) clopidogrel 75 mg tablet 75 mg PO QAM 20 days #20 tabs 11/28/23 magnesium oxide 400 mg (241.3 mg 400 mg PO BID 30 days #60 tabs 11/28/23 magnesium) tablet - Action: The above medications, specifically ones for stroke treatment/prophylaxis, have been reviewed in detail with the patient after discharge. - Outcome: The patient have demonstrated understanding of the medications. Additional comments: * DAPT w aspirin and clopidogrel x21 days planned. Pastor picked up the clopidogrel and has been taking it as prescribed * No statin prescribed at discharge and also possible DDI with patient's home omeprazole and clopidogrel (reduced clopidogrel effect possible). Pastor noted he is scheduled to see his PCP in 2 days. I noted my concerns with the two issues above and counseled Pastor to discuss both with his PCP. Pastor noted he wrote both concerns down and was able to independently re-iterate to me the two questions about medications for his PCP on Saturday. * Pastor noted he had experienced pain a few days ago on L side by his ribs wrapping around to the area of his kidney. He noted he had called his PCP who suggested being evaluated in the ED, but Pastor declined. He noted the pain is no longer present but requested guidance on what to do if it came back. I noted that as the pharmacist, this is not something I could provide guidance for and that he should seek provider recommendation (either his PCP or returning to the ED). Thank you for allowing pharmacy to be involved in the care of this patient. Please call [phone] with any additional questions
== END 2023-11-28 14:31 | disposition home health service (06) | DRG 65 ==
LOC: EDINP 14:59 → ED 14:59 → 2W 11-27 13:11

== ENCOUNTER 2025-01-17 21:00 | Observation (INO) ==
--- NOTE | 2025-01-17 21:30 | Emergency Department Note ---
ED DC CONDITION Conditon at Discharge Condition at Discharge: Fair Impression & Plan Dizziness, Bilateral leg weakness, Vertiginous syndrome, Hypertensive urgency ED Provider Note Name: HIRA EDWARDS Age: 59 Sex: Male Arrives Via: Walk-In Informant: Patient, ED Provider: Taj Avila MD Chief Complaint: Strokelike symptoms Impression: as per impressions above Medical Decision Making: Pleasant 59-year-old gentleman arrives for evaluation of strokelike symptoms. Patient with 1 week worsening bilateral leg weakness, significant left-sided headache in the last few days severe vertiginous symptoms. Patient is already at high risk fall risk secondary to ambulatory dysfunction following stroke resulting in right leg weakness. He is on dual antiplatelet therapy. CT of the head with angiography head and neck was ordered and obtained (took some time for radiology to read these). Laboratory workup is unremarkable. During this he was given some IV Ativan with vast improvement but was quite somnolent following that. Patient had noted some nausea thus the Ativan was given. Following this his blood pressure trended down and he was not having further symptoms but was so weak he was having trouble sitting up. He was monitored for some time and Ativan started wearing off. Dizziness did start returning slightly however not severe. He was able to ambulate to the bathroom but his blood pressure started trending up significantly again. Labetalol was ordered. After discussion with him and his I noted that I feel a bit uncomfortable discharging him given the symptoms are not yet resolved and he is at significantly higher fall risk given his history. While acute stroke seems unlikely and he would not be a TNKase candidate I cannot fully rule this out either and I do think it would be reasonable to consider MRI as inpatient despite his dual antiplatelet therapy. Other concerning causes such as hypertensive emergency, ACS, were considered. With the bilateral leg weakness I did consider Guillain-Cook but it does not appear consistent with that at this time. Triage/Nursing Notes reviewed by Me External Chart Review by me: Discharge summary from 11/28/2023 was reviewed by me discussing past medical history Differential:Infection, dehydration, metabolic abnormality, hypo/hyperglycemia, electrolyte disturbance, anemia, hypoxia, cardiac sources, intracerebral event, toxicologic, neurologic, as well as other pathologies. Vital Signs: reviewed and remarkable for hypertension Interventions: Ativan IV, labetalol IV Labs:ED labs Reviewed by me and remarkable for no significant abnormalities Imaging:CT of the head and neck with angiography as per radiologist no acute concerning finding EKG:As per my interpretation. Indication weakness. Normal sinus rhythm with an incomplete right bundle branch block at 70 beats per and a QTc of 471. There is no ectopy nor ischemia. When compared to EKG of January 01, 2024 there is no significant change. Cardiac/Tele Monitoring: Cardiac Monitoring: An Order was placed for continuous cardiac monitoring. The monitor shows a rate of 70 with a normal sinus rhythm. Consults:Discussed with Dr Ortiz of Hospitalist service Plan: Disposition:Hospitalization. Condition: Fair History of Present Illness: 59-year-old male arrives for evaluation of strokelike symptoms. Patient with 1 week of worsening diffuse bilateral lower leg weakness, vertiginous symptoms, headache and increasing fatigue. Notes some mild associated shortness of breath. He has a daily feeling of warm water over his left lateral chest as well. He states he is currently having a left-sided headache. Denies any visual changes. States he has some chronic issues with hearing. Denies any falls, trauma, injuries. Denies any abdominal pain, active chest pain, sore throat, fevers, chills, rashes, leg swelling or other concerning signs or symptoms. He has no worsening of his chronic weakness in his right leg. He does have a history of a CVA about a year ago. Past Medical History:See Below Home Medications:See Below Allergies:See Below Vitals:Blood Pressure: 194/108, Pulse 79, RR 16, T 36.4C, O2 99% on RA Physical Exam: GENERAL: Patient is uncomfortable appearing and in moderate distress. RESPIRATORY: No dyspnea. Clear to auscultation and equal bilaterally. CARDIOVASCULAR: Regular rate and rhythm.No murmur appreciated. GASTROINTESTINAL: Abdomen soft, non-tender, no peritonitis. EXTREMITIES: Normal motion all extremities, no cyanosis, no edema. NEUROLOGIC: Alert and oriented. Weakness of the right leg with difficulty lifting off the bed but otherwise no acute neurologic deficits appreciated while laying in bed. SKIN: No rash, no jaundice, no diaphoresis. PSYCH: Appropriate GCS: 15 ED Course: Times/Reassessments: Multiple repeat evaluations the patient throughout his stay. Appreciative of them understanding some difficulties in getting imaging report close. Taj Avila MD Past Med/Surg History Problem List (Updated 01/18/25 @ 10:00 by Taj Avila MD) Hypertensive urgency (Acute) Vertiginous syndrome (Acute) Bilateral leg weakness (Acute) TIA (transient ischemic attack) CAD (coronary atherosclerotic disease) Chronic low back pain (Acute) Dizziness (Acute) Left arm weakness (Acute) Herniated disc Low back pain HLD (hyperlipidemia) (Chronic) Thoracic myelopathy Medical History Acute ischemic stroke DM2 (diabetes mellitus, type 2) HTN (hypertension) Surgical History S/P CABG (coronary artery bypass graft) H/O arthroscopy of left knee History of trigger finger History of carpal tunnel surgery H/O shoulder surgery History of back surgery Family History Mother Heart disease Diabetes Dyslipidemia Father Colorectal cancer Kidney disease Social History Smoking Status: Former smoker Smoking End Date: 5 years ago; Hx Alcohol Use: No Hx Substance Use: Yes Last Used Substance: Days (ago) Last Used Substance Other:: 1 week ago Substance Use Type Other:: medical marijuana gummies Preferred Language: Arabic Communication Ability: Effective Store Loss Prevention Manager Required: No Beliefs That Will Affect Care: None Current Living Situation: Spouse current occupational status: employed current occupation: [employer] Feels Safe at Home: Yes Assistive Devices: None Allergies Allergies Allergy/AdvReac Type Severity Reaction Status Date / Time JOEL Inhibitors Allergy Intermediate HIVES/CHILL Verified 01/18/25 01:22 S Sulfa (Sulfonamide Allergy Intermediate "SULFA Verified 01/18/25 01:22 Antibiotics) DRUGS": RASH, HIVES albuterol Allergy Mild RASH Verified 01/18/25 01:22 rosuvastatin [From Crestor] AdvReac Intermediate Joint Pain Verified 01/18/25 01:22 Home Meds Home Medications Medication Instructions Recorded Confirmed albuterol sulfate 90 mcg/actuation 2 puff inhalation Q4 PRN 09/28/22 01/18/25 aerosol inhaler (Ventolin HFA) cough,SOB,wheezing aspirin 81 mg chewable tablet 81 mg PO QAM 09/28/22 01/18/25 cholecalciferol (vitamin D3) 50 50 mcg PO QAM 09/28/22 01/18/25 mcg (2,000 unit) capsule evolocumab 140 mg/mL subcutaneous 140 mg subcut .[id number] 09/28/22 01/18/25 pen injector fluticasone propionate 50 2 spray intranasal DAILY PRN 09/28/22 01/18/25 mcg/actuation nasal Congestion spray,suspension sildenafil (pulm.hypertension) 20 100 mg PO DAILY PRN Erectile 09/28/22 01/18/25 mg tablet (Revatio) Dysfunction baclofen 10 mg tablet 10 mg PO TID 11/26/23 01/18/25 finasteride 5 mg tablet 5 mg PO QAM 11/26/23 01/18/25 losartan 25 mg tablet 12.5 mg PO QAM 11/26/23 01/18/25 metformin 500 mg tablet,extended 1,000 mg PO AMHS 11/26/23 01/18/25 release 24 hr oxycodone 5 mg tablet 5 mg PO DAILY PRN Pain 11/26/23 01/18/25 semaglutide 2 mg/dose (8 mg/3 mL) 2 mg subcut WK 11/26/23 01/18/25 subcutaneous pen injector (Ozempic) acetaminophen 500 mg tablet 500 - 1,000 mg PO HS 01/18/25 01/18/25 acetaminophen 500 mg tablet 500 mg PO QPM 01/18/25 01/18/25 clopidogrel 75 mg tablet 75 mg PO QAM 01/18/25 01/18/25 hydroxyzine pamoate 25 mg capsule 25 - 50 mg PO HS 01/18/25 01/18/25 icosapent ethyl 1 gram capsule 2 g PO AMHS 01/18/25 01/18/25 (Vascepa) metoprolol succinate 25 mg 25 mg PO HS 01/18/25 01/18/25 tablet,extended release 24 hr (Toprol XL) ondansetron 4 mg disintegrating 4 mg translingual Q8 PRN Nausea 01/18/25 01/18/25 tablet pregabalin 100 mg capsule 100 mg PO BID 01/18/25 01/18/25 pregabalin 150 mg capsule 150 mg PO HS 01/18/25 01/18/25 Results & Data (ED) Vital Signs Vital Signs - 24 hr 01/17/25 21:01 01/17/25 21:25 01/17/25 22:06 Temperature 36.4 C L Temperature Source Temporal Artery Scan Pulse Rate 79 73 72 Pulse Rate [Right Finger] Pulse Rate from SpO2 Sensor 72 Respiratory Rate 16 19 Respiratory Effort / Characteristics Respiratory Depth Blood Pressure 194/108 H 156/96 H Blood Pressure [Right Arm] Blood Pressure Mean 136 116 Blood Pressure Mean [Right Arm] Pulse Oximetry 99 97 Oxygen Delivery Method Room Air Room Air Sepsis Recent Fever Within 48 Hours No Sepsis New/Unexplained Change in Mental Status No Sepsis Action Taken by Nursing No Action Required 01/17/25 22:18 01/17/25 22:20 01/17/25 22:24 Temperature Temperature Source Pulse Rate 84 73 Pulse Rate [Right Finger] 80 Pulse Rate from SpO2 Sensor 82 73 Respiratory Rate 23 18 19 Respiratory Effort / Characteristics Non-Labored Spontaneous Respiratory Depth Normal Blood Pressure 179/92 H 164/101 H Blood Pressure [Right Arm] 179/92 H Blood Pressure Mean 121 122 Blood Pressure Mean [Right Arm] 121 Pulse Oximetry 98 95 95 Oxygen Delivery Method Room Air Room Air Room Air Sepsis Recent Fever Within 48 Hours Sepsis New/Unexplained Change in Mental Status Sepsis Action Taken by Nursing 01/17/25 22:46 01/17/25 23:00 01/17/25 23:18 Temperature Temperature Source Pulse Rate 70 69 Pulse Rate [Right Finger] 72 Pulse Rate from SpO2 Sensor 70 69 Respiratory Rate 18 16 16 Respiratory Effort / Characteristics Non-Labored Spontaneous Respiratory Depth Normal Blood Pressure 172/101 H 167/92 H Blood Pressure [Right Arm] 164/101 H Blood Pressure Mean 124 117 Blood Pressure Mean [Right Arm] 122 Pulse Oximetry 97 97 97 Oxygen Delivery Method Room Air Room Air Room Air Sepsis Recent Fever Within 48 Hours Sepsis New/Unexplained Change in Mental Status Sepsis Action Taken by Nursing 01/18/25 00:00 01/18/25 00:32 01/18/25 00:47 Temperature Temperature Source Pulse Rate 69 71 68 Pulse Rate [Right Finger] Pulse Rate from SpO2 Sensor 69 71 69 Respiratory Rate 16 16 19 Respiratory Effort / Characteristics Respiratory Depth Blood Pressure 162/98 H 188/112 H Blood Pressure [Right Arm] Blood Pressure Mean 119 137 Blood Pressure Mean [Right Arm] Pulse Oximetry 98 99 98 Oxygen Delivery Method Room Air Room Air Room Air Sepsis Recent Fever Within 48 Hours Sepsis New/Unexplained Change in Mental Status Sepsis Action Taken by Nursing 01/18/25 00:56 01/18/25 00:57 01/18/25 00:57 Temperature Temperature Source Pulse Rate 72 72 Pulse Rate [Right Finger] Pulse Rate from SpO2 Sensor 72 Respiratory Rate 18 Respiratory Effort / Characteristics Respiratory Depth Blood Pressure 183/117 H 183/117 H 183/117 H Blood Pressure [Right Arm] Blood Pressure Mean 151 139 Blood Pressure Mean [Right Arm] Pulse Oximetry 98 Oxygen Delivery Method Room Air Sepsis Recent Fever Within 48 Hours Sepsis New/Unexplained Change in Mental Status Sepsis Action Taken by Nursing 01/18/25 01:00 01/18/25 01:00 01/18/25 01:12 Temperature Temperature Source Pulse Rate 74 Pulse Rate [Right Finger] Pulse Rate from SpO2 Sensor Respiratory Rate Respiratory Effort / Characteristics Respiratory Depth Blood Pressure 189/118 H 189/118 H 161/101 H Blood Pressure [Right Arm] Blood Pressure Mean 124 124 Blood Pressure Mean [Right Arm] Pulse Oximetry Oxygen Delivery Method Sepsis Recent Fever Within 48 Hours Sepsis New/Unexplained Change in Mental Status Sepsis Action Taken by Nursing 01/18/25 01:12 01/18/25 01:13 01/18/25 01:30 Temperature Temperature Source Pulse Rate 74 76 75 Pulse Rate [Right Finger] Pulse Rate from SpO2 Sensor 74 74 Respiratory Rate 20 18 Respiratory Effort / Characteristics Respiratory Depth Blood Pressure 161/101 H 174/103 H Blood Pressure [Right Arm] Blood Pressure Mean 121 126 Blood Pressure Mean [Right Arm] Pulse Oximetry 99 98 Oxygen Delivery Method Room Air Room Air Sepsis Recent Fever Within 48 Hours Sepsis New/Unexplained Change in Mental Status Sepsis Action Taken by Nursing Laboratory Data 01/18/25 06:51 01/18/25 06:51 Lab Results 01/17/25 01/18/25 Range/Units 21:19 00:15 WBC 5.81 (4.8-10.8) K/ul RBC 5.29 (4.70-6.10) M/uL Hgb 14.6 (14.0-18.0) g/dl Hct 42.4 (42.0-52.0) % MCV 80.2 (80.0-100.0) fL MCH 27.6 (25.0-34.0) pg MCHC 34.4 (32.0-36.0) g/dL RDW Std Deviation 37.9 (36.4-46.3) fL RDW Coeff of Ravi 13.3 (11.5-14.5) % Plt Count 215 (130-400) K/uL MPV 11.5 (9.4-12.4) fL Immature Gran % (Auto) 0.5 % Neut % (Auto) 56.5 % Lymph % (Auto) 32.5 % [place] % (Auto) 7.6 % Eos % (Auto) 2.4 % Baso % (Auto) 0.5 % Neut # (Auto) 3.28 (1.40-6.50) K/uL Lymph # (Auto) 1.89 (1.20-3.40) K/uL [place] # (Auto) 0.44 (0.11-0.59) K/uL Eos # (Auto) 0.14 (0.00-0.50) K/uL Baso # (Auto) 0.03 (0.00-0.20) K/uL Immature Gran # (Auto) 0.03 (0.01-0.20) K/uL Sodium 139 (136-145) mmol/L Potassium 3.8 (3.5-5.1) mmol/L Chloride 107 (98-107) mmol/L Carbon Dioxide 22 (21-32) mmol/L Anion Gap 10 (3-11) BUN 12 (6-23) mg/dl Creatinine 0.83 (0.6-1.4) mg/dl Est Cr Clr Drug Dosing 106.4 ml/min eGFR 101.45 BUN/Creatinine Ratio 14.5 (10-20) Glucose 168 H (70-99(Fasting)) mg/dl Calcium 9.3 (8.6-10.3) mg/dl Magnesium 1.9 (1.7-2.4) mg/dl Troponin I High Sens 3.3 (0-20) pg/ml TSH 1.764 (0.300-4.500) uIu/ml Urine Color Yellow Urine Appearance Clear (Clear) Urine pH 5.5 (4.5-7.5) Ur Specific [place] > 1.045 H (1.000-1.030) Urine Protein Negative (Negative) Urine Glucose (UA) Negative (Negative) Urine Ketones Negative (Negative) Urine Blood Negative (Negative) Urine Nitrite Negative (Negative) Urine Bilirubin Negative (Negative) Urine Urobilinogen Negative (Negative) Ur Leukocyte Esterase Negative (Negative) Urine Comment Administered Medications Acetaminophen (Acetaminophen 325 Mg Tab) 650 mg PO QID PRN PRN Reason: pain/fever Stop: 02/17/25 01:38 Last Admin: 01/18/25 05:41 Dose: 650 mg Documented By: CAMRYN Aspirin (Aspirin 81 Mg Ectab) 81 mg PO [facility] Stop: 02/17/25 08:59 Last Admin: 01/18/25 08:25 Dose: 81 mg Documented By: HERNESTO Baclofen (Baclofen 10 Mg Tab) 10 mg PO TID [facility] Stop: 02/17/25 08:59 Last Admin: 01/18/25 08:25 Dose: 10 mg Documented By: HERNESTO Clopidogrel Bisulfate (Clopidogrel Bisulfate 75 Mg Tab) 75 mg PO [facility] Stop: 02/17/25 08:59 Last Admin: 01/18/25 08:25 Dose: 75 mg Documented By: HERNESTO Enoxaparin Sodium (Enoxaparin Inj 40 Mg/0.4 Ml Syr) 40 mg SQ [facility] Stop: 02/17/25 08:59 Last Admin: 01/18/25 08:25 Dose: 40 mg Documented By: HERNESTO Finasteride (Finasteride 5 Mg Tab) 5 mg PO [facility] Stop: 02/17/25 08:59 Last Admin: 01/18/25 08:25 Dose: 5 mg Documented By: HERNESTO Insulin Aspart (Insulin Aspart Per Unit Charge) 0 units SC [facility] Stop: 02/17/25 05:18 Last Admin: 01/18/25 08:35 Dose: 4 units Documented By: HERNESTO Co-signed By: [facility] Admin: 01/18/25 05:41 Dose: Not Given Documented By: CAMRYN Miscellaneous ((Icosapent Ethyl [Vascepa] 1 Gram Capsule)~Order Awaiting Action) 1 each N/A QS [facility] Stop: 02/17/25 07:59 Last Admin: 01/18/25 07:49 Dose: Not Given Documented By: HERNESTO Pregabalin (Pregabalin 100 Mg Cap) 100 mg PO BID@0900,1200 [facility] Stop: 02/17/25 08:59 Last Admin: 01/18/25 08:25 Dose: 100 mg Documented By: HERNESTO Vitamin D (Cholecalciferol 25 Mcg (1000 Units) Tab) 50 mcg PO QAM JEAN CARLOS Stop: 02/17/25 08:59 Last Admin: 01/18/25 08:25 Dose: 50 mcg Documented By: HERNESTO Discontinued Medications Gadobutrol (Gadobutrol 65ml Vial) 9.5 ml IV ONCE ONE Stop: 01/18/25 02:58 Last Admin: 01/18/25 02:57 Dose: 9.5 ml Documented By: RYAN Hydralazine HCl (Hydralazine Hcl 20 Mg/Ml Vial) 5 mg IV NOW STA Stop: 01/18/25 04:08 Last Admin: 01/18/25 04:15 Dose: 5 mg Documented By: ELIN Magnesium Sulfate/Dextrose (Magnesium Sulfate / D5w) 1 gm in 100 mls @ 50 mls/hr IV ONE STA Stop: 01/18/25 02:40 Last Infusion: 01/18/25 03:51 Dose: Infused Documented By: Infusion: 01/18/25 03:11 Dose: 50 mls/hr Documented By: Infusion: 01/18/25 02:25 Dose: 0 mls/hr Documented By: Admin: 01/18/25 01:01 Dose: 50 mls/hr Documented By: ELIN Ampicillin Sodium/Sulbactam Sodium (Unasyn) 3,000 mg in 100 mls @ 200 mls/hr IV NOW STA Stop: 01/18/25 02:20 Last Infusion: 01/18/25 04:25 Dose: Infused Documented By: Admin: 01/18/25 03:51 Dose: 200 mls/hr Documented By: ELIN Ioversol (Optiray 320 125ml) 119 ml IV ONCE ONE Stop: 01/17/25 22:13 Last Admin: 01/17/25 22:12 Dose: 119 ml Documented By: MINERVA Ipratropium [place] (Ipratropium [place] Neb Soln 0.02% 0.5mg/2.5ml Vial) 0.5 mg INH NOW STA Stop: 01/18/25 01:54 Last Admin: 01/18/25 02:03 Dose: 0.5 mg Documented By: ELIN Labetalol HCl (Labetalol Hcl Iv 5 Mg/Ml 20ml) 10 mg IV NOW STA Stop: 01/18/25 00:33 Last Admin: 01/18/25 00:57 Dose: 10 mg Documented By: ELIN Levalbuterol HCl (Levalbuterol 1.25 Mg/3 Ml Neb) 1.25 mg NEB NOW STA Stop: 01/18/25 01:54 Last Admin: 01/18/25 02:03 Dose: 1.25 mg Documented By: ELIN Lorazepam (Lorazepam 2 Mg/1 Ml Vial) 1 mg IV NOW STA Stop: 01/17/25 21:29 Last Admin: 01/17/25 21:44 Dose: 1 mg Documented By: JOHNATHAN Lorazepam (Lorazepam 2 Mg/1 Ml Vial) 0.5 mg IV NOW STA Stop: 01/18/25 02:13 Last Admin: 01/18/25 02:26 Dose: 0.5 mg Documented By: ELIN Losartan Potassium (Losartan Potassium 25 Mg Tab) 25 mg PO NOW STA Stop: 01/18/25 01:01 Last Admin: 01/18/25 01:19 Dose: 25 mg Documented By: ELIN Imaging Data Radiologist's Impression: Head CTA 01/17/25 21:27 Exam(s): CTA HEAD W/WO Contrast IV Amt: 119ml optiray 320 EXAM: CT Angiography Head Without and With Intravenous Contrast CLINICAL HISTORY: Reason for exam: stroke symptoms, acute vertigo, htn, weakness. TECHNIQUE: Axial computed tomographic angiography images of the head without and with intravenous contrast. CTDI is 37.51 mGy and DLP is 624.41 mGy-cm. Automated exposure control was utilized for the study. A dose lowering technique was utilized adhering to the principles of ALARA. MIP reconstructed images were created and reviewed. CONTRAST: Patient received 119ml optiray 320 of IV contrast COMPARISON: No relevant prior studies available. FINDINGS: VASCULATURE: The dural venous sinuses are patent. Right internal carotid artery: No acute findings. Intracranial segment is patent with no significant stenosis. No aneurysm. Right anterior cerebral artery: Unremarkable. No occlusion or significant stenosis. No aneurysm. Right middle cerebral artery: Unremarkable. No occlusion or significant stenosis. No aneurysm. Right posterior cerebral artery: Unremarkable. No occlusion or significant stenosis. No aneurysm. Right vertebral artery: Unremarkable as visualized. Left internal carotid artery: No acute findings. Intracranial segment is patent with no significant stenosis. No aneurysm. Left anterior cerebral artery: Unremarkable. No occlusion or significant stenosis. No aneurysm. Left middle cerebral artery: Unremarkable. No occlusion or significant stenosis. No aneurysm. Left posterior cerebral artery: Unremarkable. No occlusion or significant stenosis. No aneurysm. Left vertebral artery: Unremarkable as visualized. Basilar artery: Unremarkable. No occlusion or significant stenosis. No aneurysm. HEAD: Brain: No acute findings. No hemorrhage. No edema. Normal enhancement. Ventricles: Unremarkable. No ventriculomegaly. Bones/joints: No acute fracture. Soft tissues: Unremarkable. Sinuses: Unremarkable as visualized. No acute sinusitis. Mastoid air cells: Unremarkable as visualized. No mastoid effusion. IMPRESSION: Negative CT angiogram of the head. Electronically signed by: Ivelisse Fajardo MD 01/18/25 01:28 AM Neck CTA 01/17/25 21:27 Exam(s): CTA NECK With Contrast IV Amt: 119ml opti 320 EXAM: CT Angiography Neck With Intravenous Contrast CLINICAL HISTORY: Reason for exam: stroke symptoms, acute vertigo, htn, weakness. TECHNIQUE: Routine carotid CT angiography protocol was performed with intravenous contrast. NASCET criteria using the distal ICAs for comparison were used for evaluation of stenoses. CTDI is 37.51 mGy and DLP is 624.41 mGy-cm. Automated exposure control was utilized for the study. A dose lowering technique was utilized adhering to the principles of ALARA. MIP reconstructed images were created and reviewed. CONTRAST: Patient received 119ml opti 320 of IV contrast COMPARISON: None. FINDINGS: VASCULATURE: Right common carotid artery: Unremarkable. No occlusion or significant stenosis. No dissection. Right internal carotid artery: Unremarkable. Extracranial segment is patent with no occlusion or significant stenosis. No dissection. Right external carotid artery: Unremarkable. No occlusion. Right vertebral artery: Unremarkable. No occlusion or significant stenosis. No dissection. Left common carotid artery: Unremarkable. No occlusion or significant stenosis. No dissection. Left internal carotid artery: Unremarkable. Extracranial segment is patent with no occlusion or significant stenosis. No dissection. Left external carotid artery: Unremarkable. No occlusion. Left vertebral artery: Unremarkable. No occlusion or significant stenosis. No dissection. NECK: Bones/joints: There is a severe spinal canal stenosis at C1. There is a critical spinal canal stenosis at T3-4. Status post median sternotomy with sternal wires in place. No acute fracture. Soft tissues: Prominent lingual tonsils. Lung apices: Clear. CAROTID STENOSIS REFERENCE USING NASCET CRITERIA: % ICA stenosis = (1 - narrowest ICA diameter/diameter of distal cervical ICA) x 100. Mild - <50% stenosis. Moderate - 50-69% stenosis. Severe - 70-94% stenosis. Near occlusion - 95-99% stenosis. Occluded - 100% stenosis. IMPRESSION: Negative CTA neck. Critical spinal canal stenosis at T3-4. Recommend MRI of the thoracic spine to evaluate for myelopathy. Electronically signed by: Ivelisse Fajardo MD 01/18/25 01:32 AM Chest X-Ray 01/17/25 21:28 Exam(s): XR CXR 1 VIEW EXAM: XR Chest, 1 View CLINICAL HISTORY: Reason for exam: cough. TECHNIQUE: Frontal view of the chest. COMPARISON: Prior chest x-ray from January 01, 2024. FINDINGS: Lungs: Mild peribronchial thickening of the central lower lobe bronchi. No consolidation. Pleural space: Unremarkable. No pneumothorax. Heart: Unremarkable. No cardiomegaly. Mediastinum: Unremarkable. Normal mediastinal contour. Bones/joints: Chest post posterior fusion of the distal thoracic spine. Status post median sternotomy with sternal wires intact. No acute fracture. There is a loop recorder over the left chest wall. IMPRESSION: Bronchitis, which may be of infectious or inflammatory etiologies. No consolidation or pleural effusion. Electronically signed by: Ivelisse Fajardo MD 01/18/25 00:56 AM Discharge Plan Visit Data Chief Complaint: Headache Stated Complaint: HX OF STROKES,HEADACHES,HTN,NAUSEA ED Provider: Taj Avila Discharge Problem: Dizziness, Bilateral leg weakness, Vertiginous syndrome, Hypertensive urgency Patient Disposition: Admitted As Inpatient Condition: Fair Discharge Instructions Interventions: ED Discharge Assessment Last Done: 01/18/25 04:58
[2025-01-17 21:48] LABS: Hematocrit (blood only) 42.4 % (42.0-52.0); Hemoglobin 14.6 g/dl (14.0-18.0); Immature Granulocytes # (auto) 0.03 K/uL (0.01-0.20); Immature Granulocytes % (auto) 0.5 %; Mean Corpuscular Hemoglobin 27.6 pg (25.0-34.0); Mean Corpuscular Volume 80.2 fL (80.0-100.0); Platelet Count 215 K/uL (130-400); RDW Standard Deviation 37.9 fL (36.4-46.3); Red Blood Count 5.29 M/uL (4.70-6.10); White Blood Count 5.81 K/ul (4.8-10.8)
[2025-01-17 22:05] LABS: Anion Gap 10.0 (3-11); Blood Urea Nitrogen 12.0 mg/dl (6-23); Calcium 9.3 mg/dl (8.6-10.3); Carbon Dioxide 22.0 mmol/L (21-32); Chloride 107.0 mmol/L (98-107); Creatinine Clr Calc Pharmacy 106.4 ml/min; Glucose 168.0 mg/dl (70-99(Fasting)); Magnesium 1.9 mg/dl (1.7-2.4); Potassium 3.8 mmol/L (3.5-5.1); Sodium 139.0 mmol/L (136-145)
[2025-01-17] MEDS: OPTIRAY 320 125ml IV ONE (22:12)
[2025-01-17 22:21] LABS: Thyroid Stimulating Hormone 1.764 uIu/ml (0.300-4.500)
[2025-01-18] MEDS: LABETALOL HCL IV 5 MG/ML 20ML IV STA (00:57)
--- NOTE | 2025-01-18 00:57 | XRay Report ---
Exam(s): XR CXR 1 VIEW EXAM: XR Chest, 1 View CLINICAL HISTORY: Reason for exam: cough. TECHNIQUE: Frontal view of the chest. COMPARISON: Prior chest x-ray from January 01, 2024. FINDINGS: Lungs: Mild peribronchial thickening of the central lower lobe bronchi. No consolidation. Pleural space: Unremarkable. No pneumothorax. Heart: Unremarkable. No cardiomegaly. Mediastinum: Unremarkable. Normal mediastinal contour. Bones/joints: Chest post posterior fusion of the distal thoracic spine. Status post median sternotomy with sternal wires intact. No acute fracture. There is a loop recorder over the left chest wall. IMPRESSION: Bronchitis, which may be of infectious or inflammatory etiologies. No consolidation or pleural effusion. Electronically signed by: Ivelisse Fajardo MD 01/18/25 00:56 AM
[2025-01-18] MEDS: MAGNESIUM SULFATE / D5W 1 GM/100 ML BAG IV STA (01:01)
[2025-01-18 01:05] LABS: Appearance Urine Clear (Clear); Glucose Urine UA Negative (Negative)
[2025-01-18] MEDS: LOSARTAN POTASSIUM 25 MG TAB PO STA (01:19)
--- NOTE | 2025-01-18 01:29 | CT Scan Report ---
Exam(s): CTA HEAD W/WO Contrast IV Amt: 119ml optiray 320 EXAM: CT Angiography Head Without and With Intravenous Contrast CLINICAL HISTORY: Reason for exam: stroke symptoms, acute vertigo, htn, weakness. TECHNIQUE: Axial computed tomographic angiography images of the head without and with intravenous contrast. CTDI is 37.51 mGy and DLP is 624.41 mGy-cm. Automated exposure control was utilized for the study. A dose lowering technique was utilized adhering to the principles of ALARA. MIP reconstructed images were created and reviewed. CONTRAST: Patient received 119ml optiray 320 of IV contrast COMPARISON: No relevant prior studies available. FINDINGS: VASCULATURE: The dural venous sinuses are patent. Right internal carotid artery: No acute findings. Intracranial segment is patent with no significant stenosis. No aneurysm. Right anterior cerebral artery: Unremarkable. No occlusion or significant stenosis. No aneurysm. Right middle cerebral artery: Unremarkable. No occlusion or significant stenosis. No aneurysm. Right posterior cerebral artery: Unremarkable. No occlusion or significant stenosis. No aneurysm. Right vertebral artery: Unremarkable as visualized. Left internal carotid artery: No acute findings. Intracranial segment is patent with no significant stenosis. No aneurysm. Left anterior cerebral artery: Unremarkable. No occlusion or significant stenosis. No aneurysm. Left middle cerebral artery: Unremarkable. No occlusion or significant stenosis. No aneurysm. Left posterior cerebral artery: Unremarkable. No occlusion or significant stenosis. No aneurysm. Left vertebral artery: Unremarkable as visualized. Basilar artery: Unremarkable. No occlusion or significant stenosis. No aneurysm. HEAD: Brain: No acute findings. No hemorrhage. No edema. Normal enhancement. Ventricles: Unremarkable. No ventriculomegaly. Bones/joints: No acute fracture. Soft tissues: Unremarkable. Sinuses: Unremarkable as visualized. No acute sinusitis. Mastoid air cells: Unremarkable as visualized. No mastoid effusion. IMPRESSION: Negative CT angiogram of the head. Electronically signed by: Ivelisse Fajardo MD 01/18/25 01:28 AM
--- NOTE | 2025-01-18 01:32 | CT Scan Report ---
Exam(s): CTA NECK With Contrast IV Amt: 119ml opti 320 EXAM: CT Angiography Neck With Intravenous Contrast CLINICAL HISTORY: Reason for exam: stroke symptoms, acute vertigo, htn, weakness. TECHNIQUE: Routine carotid CT angiography protocol was performed with intravenous contrast. NASCET criteria using the distal ICAs for comparison were used for evaluation of stenoses. CTDI is 37.51 mGy and DLP is 624.41 mGy-cm. Automated exposure control was utilized for the study. A dose lowering technique was utilized adhering to the principles of ALARA. MIP reconstructed images were created and reviewed. CONTRAST: Patient received 119ml opti 320 of IV contrast COMPARISON: None. FINDINGS: VASCULATURE: Right common carotid artery: Unremarkable. No occlusion or significant stenosis. No dissection. Right internal carotid artery: Unremarkable. Extracranial segment is patent with no occlusion or significant stenosis. No dissection. Right external carotid artery: Unremarkable. No occlusion. Right vertebral artery: Unremarkable. No occlusion or significant stenosis. No dissection. Left common carotid artery: Unremarkable. No occlusion or significant stenosis. No dissection. Left internal carotid artery: Unremarkable. Extracranial segment is patent with no occlusion or significant stenosis. No dissection. Left external carotid artery: Unremarkable. No occlusion. Left vertebral artery: Unremarkable. No occlusion or significant stenosis. No dissection. NECK: Bones/joints: There is a severe spinal canal stenosis at C1. There is a critical spinal canal stenosis at T3-4. Status post median sternotomy with sternal wires in place. No acute fracture. Soft tissues: Prominent lingual tonsils. Lung apices: Clear. CAROTID STENOSIS REFERENCE USING NASCET CRITERIA: % ICA stenosis = (1 - narrowest ICA diameter/diameter of distal cervical ICA) x 100. Mild - <50% stenosis. Moderate - 50-69% stenosis. Severe - 70-94% stenosis. Near occlusion - 95-99% stenosis. Occluded - 100% stenosis. IMPRESSION: Negative CTA neck. Critical spinal canal stenosis at T3-4. Recommend MRI of the thoracic spine to evaluate for myelopathy. Electronically signed by: Ivelisse Fajardo MD 01/18/25 01:32 AM
--- NOTE | 2025-01-18 01:35 | History & Physical Report ---
Date of Service January 18, 2025 Assessment & Plan (1) Dizziness: Plan: Assessment and plan below following discussion of case with ED provider and reviewing patient history/pertinent normal/abnormal diagnostic test results. Dizziness Multifactorial: Uncontrolled hypertension Vertigo component, history of BPPV as per records Rule out recurrent CVA (bilateral pontine strokes as per records) Anxiety contributory Possible aspiration pneumonitis No sepsis for now hx CAD status post CABG hyperlipidemia/statin intolerance, patient on Repatha and Vascepa AURE on CPAP DM 2 on oral medications, well-controlled as of recent hemoglobin A1c of 6.2 last September 2024 past tobacco abuse OBS Medical telemetry Neurochecks MRI brain permissive hypertension for now Neurology consult Re: Increased RLE weakness Anxiolytic as needed Unasyn followed by Augmentin for possible aspiration pneumonitis ISS BG goal 1 10-1 40 DVT prophylaxis. Lovenox subcu Full code Patient requesting updates providers. Ms. Berenice Perales, contact #[phone]. Text document was generated using [employer] voice recognition software. It may contain grammatical or spelling errors. Kindly contact undersigned for clarification of any documentation item in question. History of Present Illness Chief Complaint: Dizziness, leg weakness Primary Care Provider: Monty Gillespie MD History obtained from patient, family, and records. Medical history significant for CAD status post CABG, CVA (bilateral pontine strokes as per records), hypertension, hyperlipidemia, statin intolerance, AURE on CPAP, DM 2 on oral medications, GERD, chronic back pain status post surgery, BPPV, anxiety disorder, past tobacco abuse. Last confinement November 2023 for acute ischemic stroke presenting as dizziness, imbalance sensation and more pronounced left-sided weakness. MRI report showed small acute ischemic right ev. Plavix added to patient's aspirin on discharge. Loop recorder to car pick up driver on predisposing arrhythmias eventually placed outpatie nt June,. Last week, patient noted increase in baseline RLE weakness associated with left- sided headache, dizziness symptoms described as occasionally spinning. Usual decreased hearing from prior strokes as per patient. No unusual back pain. Patient compliant with home medications. Junky cough symptoms following reflux episodes. Some SOB without chest pain. Warm sensation over left chest from time to time. No abdominal pain. SBP noted to be 1 90-200s at home which is unusual. Patient consulted ER for evaluation. 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 Allergies Allergy/AdvReac Type Severity Reaction Status Date / Time JOEL Inhibitors Allergy Intermediate HIVES/CHILL Verified 01/18/25 01:22 S Sulfa (Sulfonamide Allergy Intermediate "SULFA Verified 01/18/25 01:22 Antibiotics) DRUGS": RASH, HIVES albuterol Allergy Mild RASH Verified 01/18/25 01:22 rosuvastatin [From Crestor] AdvReac Intermediate Joint Pain Verified 01/18/25 01:22 Home Medications Medication Instructions Recorded Confirmed Type albuterol sulfate 90 mcg/actuation 2 puff inhalation Q4 PRN 09/28/22 01/18/25 History aerosol inhaler (Ventolin HFA) cough,SOB,wheezing aspirin 81 mg chewable tablet 81 mg PO QAM 09/28/22 01/18/25 History cholecalciferol (vitamin D3) 50 50 mcg PO QAM 09/28/22 01/18/25 History mcg (2,000 unit) capsule evolocumab 140 mg/mL subcutaneous 140 mg subcut .[id number] 09/28/22 01/18/25 History pen injector fluticasone propionate 50 2 spray intranasal DAILY PRN 09/28/22 01/18/25 History mcg/actuation nasal Congestion spray,suspension sildenafil (pulm.hypertension) 20 100 mg PO DAILY PRN Erectile 09/28/22 01/18/25 History mg tablet (Revatio) Dysfunction baclofen 10 mg tablet 10 mg PO TID 11/26/23 01/18/25 History finasteride 5 mg tablet 5 mg PO QAM 11/26/23 01/18/25 History losartan 25 mg tablet 12.5 mg PO QAM 11/26/23 01/18/25 History metformin 500 mg tablet,extended 1,000 mg PO AMHS 11/26/23 01/18/25 History release 24 hr oxycodone 5 mg tablet 5 mg PO DAILY PRN Pain 11/26/23 01/18/25 History semaglutide 2 mg/dose (8 mg/3 mL) 2 mg subcut WK 11/26/23 01/18/25 History subcutaneous pen injector (Ozempic) acetaminophen 500 mg tablet 500 - 1,000 mg PO HS 01/18/25 01/18/25 History acetaminophen 500 mg tablet 500 mg PO QPM 01/18/25 01/18/25 History clopidogrel 75 mg tablet 75 mg PO QAM 01/18/25 01/18/25 History hydroxyzine pamoate 25 mg capsule 25 - 50 mg PO HS 01/18/25 01/18/25 History icosapent ethyl 1 gram capsule 2 g PO AMHS 01/18/25 01/18/25 History (Vascepa) metoprolol succinate 25 mg 25 mg PO HS 01/18/25 01/18/25 History tablet,extended release 24 hr (Toprol XL) ondansetron 4 mg disintegrating 4 mg translingual Q8 PRN Nausea 01/18/25 01/18/25 History tablet pregabalin 100 mg capsule 100 mg PO BID 01/18/25 01/18/25 History pregabalin 150 mg capsule 150 mg PO HS 01/18/25 01/18/25 History Past Med/Surg History Problem List (Updated 04/25/24 @ 00:09 by Yaneth Rodriguez) TIA (transient ischemic attack) CAD (coronary atherosclerotic disease) Chronic low back pain (Acute) Dizziness (Acute) Left arm weakness (Acute) Herniated disc Low back pain HLD (hyperlipidemia) (Chronic) Thoracic myelopathy Medical History Acute ischemic stroke DM2 (diabetes mellitus, type 2) HTN (hypertension) Surgical History S/P CABG (coronary artery bypass graft) H/O arthroscopy of left knee History of trigger finger History of carpal tunnel surgery H/O shoulder surgery History of back surgery Family History Mother Heart disease Diabetes Dyslipidemia Father Colorectal cancer Kidney disease Social History Smoking Status: Former smoker Smoking End Date: 5 years ago; Hx Alcohol Use: No Hx Substance Use: Yes Last Used Substance: Days (ago) Last Used Substance Other:: 1 week ago Substance Use Type Other:: medical marijuana gummies Preferred Language: Burkinan Communication Ability: Effective Business Support Manager Required: No Beliefs That Will Affect Care: None Current Living Situation: Spouse current occupational status: employed 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 Feels Safe at Home: Yes Assistive Devices: None Review of Systems Review of Systems: As per HPI, all other systems reviewed and negative Physical Exam Physical Exam: GENERAL: Anxious, obese, mild hearing impairment, no respiratory distress SKIN: Normal color, warm HEENT: Bespectacled, [place] palpebral conjunctivae, no ptosis, moist buccal mucosa NECK : Supple, no tenderness CHEST : Decreased breath sounds, no tenderness HEART : RRR, no obvious murmurs ABDOMEN: Some distention, nontender EXTREMITIES : Minimal LE swelling/tenderness, no other conspicuous deformities noted NEUROLOGIC : Coherent, no facial asymmetry, MMTS BUE 4/5, BLE 3/5, gait and stance not assessed Results & Data Results & Data Vital Signs (Past 12 Hours) Vital Signs Temp Pulse Pulse Resp BP BP Pulse Ox 01/18/25 01:13 76 01/18/25 01:12 74 20 161/101 H 99 01/18/25 01:12 74 161/101 H 01/18/25 01:00 189/118 H 01/18/25 01:00 189/118 H 01/18/25 00:57 72 183/117 H 01/18/25 00:57 72 18 183/117 H 98 01/18/25 00:56 183/117 H 01/18/25 00:47 68 19 98 01/18/25 00:32 71 16 188/112 H 99 01/18/25 00:00 69 16 162/98 H 98 01/17/25 23:18 69 16 167/92 H 97 01/17/25 23:00 70 16 172/101 H 97 01/17/25 22:46 72 18 164/101 H 97 01/17/25 22:24 73 19 164/101 H 95 01/17/25 22:20 80 18 179/92 H 95 01/17/25 22:18 84 23 179/92 H 98 01/17/25 22:06 72 19 156/96 H 97 01/17/25 21:25 73 01/17/25 21:01 36.4 C L 79 16 194/108 H 99 O2 Del Method 01/18/25 01:13 01/18/25 01:12 Room Air 06/30/25 01:12 01/18/25 01:00 01/18/25 01:00 01/18/25 00:57 01/18/25 00:57 Room Air 01/18/25 00:56 01/18/25 00:47 Room Air 01/18/25 00:32 Room Air 01/18/25 00:00 Room Air 01/17/25 23:18 Room Air 01/17/25 23:00 Room Air 01/17/25 22:46 Room Air 01/17/25 22:24 Room Air 01/17/25 22:20 Room Air 01/17/25 22:18 Room Air 01/17/25 22:06 Room Air 01/17/25 21:25 01/17/25 21:01 Room Air Laboratory Results Laboratory Results WBC 5.81 K/ul (4.8-10.8) 01/17/25 21:19 RBC 5.29 M/uL (4.70-6.10) 01/17/25 21:19 Hgb 14.6 g/dl (14.0-18.0) 01/17/25 21:19 Hct 42.4 % (42.0-52.0) 01/17/25 21:19 MCV 80.2 fL (80.0-100.0) 01/17/25 21:19 MCH 27.6 pg (25.0-34.0) 01/17/25 21:19 MCHC 34.4 g/dL (32.0-36.0) 01/17/25 21:19 RDW Std Deviation 37.9 fL (36.4-46.3) 01/17/25 21:19 RDW Coeff of Ravi 13.3 % (11.5-14.5) 01/17/25 21:19 Plt Count 215 K/uL (130-400) 01/17/25 21:19 MPV 11.5 fL (9.4-12.4) 01/17/25 21:19 Immature Gran % (Auto) 0.5 % 01/17/25 21:19 Neut % (Auto) 56.5 % 01/17/25 21:19 Lymph % (Auto) 32.5 % 01/17/25 21:19 [place] % (Auto) 7.6 % 01/17/25 21:19 Eos % (Auto) 2.4 % 01/17/25 21:19 Baso % (Auto) 0.5 % 01/17/25 21:19 Neut # (Auto) 3.28 K/uL (1.40-6.50) 01/17/25 21:19 Lymph # (Auto) 1.89 K/uL (1.20-3.40) 01/17/25 21:19 [place] # (Auto) 0.44 K/uL (0.11-0.59) 01/17/25 21:19 Eos # (Auto) 0.14 K/uL (0.00-0.50) 01/17/25 21:19 Baso # (Auto) 0.03 K/uL (0.00-0.20) 01/17/25 21:19 Immature Gran # (Auto) 0.03 K/uL (0.01-0.20) 01/17/25 21:19 Sodium 139 mmol/L (136-145) 01/17/25 21:19 Potassium 3.8 mmol/L (3.5-5.1) 01/17/25 21:19 Chloride 107 mmol/L (98-107) 01/17/25 21:19 Carbon Dioxide 22 mmol/L (21-32) 01/17/25 21:19 Anion Gap 10 (3-11) 01/17/25 21:19 BUN 12 mg/dl (6-23) 01/17/25 21:19 Creatinine 0.83 mg/dl (0.6-1.4) 01/17/25 21:19 Est Cr Clr Drug Dosing 106.4 ml/min 01/17/25 21:19 eGFR 101.45 01/17/25 21:19 BUN/Creatinine Ratio 14.5 (10-20) 01/17/25 21:19 Glucose 168 mg/dl (70-99(Fasting)) H 01/17/25 21:19 Calcium 9.3 mg/dl (8.6-10.3) 01/17/25 21:19 Magnesium 1.9 mg/dl (1.7-2.4) 01/17/25 21:19 Troponin I High Sens 3.3 pg/ml (0-20) 01/17/25 21:19 TSH 1.764 uIu/ml (0.300-4.500) 01/17/25 21:19 Urine Color Yellow 01/18/25 00:15 Urine Appearance Clear (Clear) 01/18/25 00:15 Urine pH 5.5 (4.5-7.5) 01/18/25 00:15 Ur Specific [place] > 1.045 (1.000-1.030) H 01/18/25 00:15 Urine Protein Negative (Negative) 01/18/25 00:15 Urine Glucose (UA) Negative (Negative) 01/18/25 00:15 Urine Ketones Negative (Negative) 01/18/25 00:15 Urine Blood Negative (Negative) 01/18/25 00:15 Urine Nitrite Negative (Negative) 01/18/25 00:15 Urine Bilirubin Negative (Negative) 01/18/25 00:15 Urine Urobilinogen Negative (Negative) 01/18/25 00:15 Ur Leukocyte Esterase Negative (Negative) 01/18/25 00:15 Urine Comment 01/18/25 00:15 Impressions Head CTA 01/17/25 21:27 Exam(s): CTA HEAD W/WO Contrast IV Amt: 119ml optiray 320 EXAM: CT Angiography Head Without and With Intravenous Contrast CLINICAL HISTORY: Reason for exam: stroke symptoms, acute vertigo, htn, weakness. TECHNIQUE: Axial computed tomographic angiography images of the head without and with intravenous contrast. CTDI is 37.51 mGy and DLP is 624.41 mGy-cm. Automated exposure control was utilized for the study. A dose lowering technique was utilized adhering to the principles of ALARA. MIP reconstructed images were created and reviewed. CONTRAST: Patient received 119ml optiray 320 of IV contrast COMPARISON: No relevant prior studies available. FINDINGS: VASCULATURE: The dural venous sinuses are patent. Right internal carotid artery: No acute findings. Intracranial segment is patent with no significant stenosis. No aneurysm. Right anterior cerebral artery: Unremarkable. No occlusion or significant stenosis. No aneurysm. Right middle cerebral artery: Unremarkable. No occlusion or significant stenosis. No aneurysm. Right posterior cerebral artery: Unremarkable. No occlusion or significant stenosis. No aneurysm. Right vertebral artery: Unremarkable as visualized. Left internal carotid artery: No acute findings. Intracranial segment is patent with no significant stenosis. No aneurysm. Left anterior cerebral artery: Unremarkable. No occlusion or significant stenosis. No aneurysm. Left middle cerebral artery: Unremarkable. No occlusion or significant stenosis. No aneurysm. Left posterior cerebral artery: Unremarkable. No occlusion or significant stenosis. No aneurysm. Left vertebral artery: Unremarkable as visualized. Basilar artery: Unremarkable. No occlusion or significant stenosis. No aneurysm. HEAD: Brain: No acute findings. No hemorrhage. No edema. Normal enhancement. Ventricles: Unremarkable. No ventriculomegaly. Bones/joints: No acute fracture. Soft tissues: Unremarkable. Sinuses: Unremarkable as visualized. No acute sinusitis. Mastoid air cells: Unremarkable as visualized. No mastoid effusion. IMPRESSION: Negative CT angiogram of the head. Electronically signed by: Ivelisse Fajardo MD 01/18/25 01:28 AM Neck CTA 01/17/25 21:27 Exam(s): CTA NECK With Contrast IV Amt: 119ml opti 320 EXAM: CT Angiography Neck With Intravenous Contrast CLINICAL HISTORY: Reason for exam: stroke symptoms, acute vertigo, htn, weakness. TECHNIQUE: Routine carotid CT angiography protocol was performed with intravenous contrast. NASCET criteria using the distal ICAs for comparison were used for evaluation of stenoses. CTDI is 37.51 mGy and DLP is 624.41 mGy-cm. Automated exposure control was utilized for the study. A dose lowering technique was utilized adhering to the principles of ALARA. MIP reconstructed images were created and reviewed. CONTRAST: Patient received 119ml opti 320 of IV contrast COMPARISON: None. FINDINGS: VASCULATURE: Right common carotid artery: Unremarkable. No occlusion or significant stenosis. No dissection. Right internal carotid artery: Unremarkable. Extracranial segment is patent with no occlusion or significant stenosis. No dissection. Right external carotid artery: Unremarkable. No occlusion. Right vertebral artery: Unremarkable. No occlusion or significant stenosis. No dissection. Left common carotid artery: Unremarkable. No occlusion or significant stenosis. No dissection. Left internal carotid artery: Unremarkable. Extracranial segment is patent with no occlusion or significant stenosis. No dissection. Left external carotid artery: Unremarkable. No occlusion. Left vertebral artery: Unremarkable. No occlusion or significant stenosis. No dissection. NECK: Bones/joints: There is a severe spinal canal stenosis at C1. There is a critical spinal canal stenosis at T3-4. Status post median sternotomy with sternal wires in place. No acute fracture. Soft tissues: Prominent lingual tonsils. Lung apices: Clear. CAROTID STENOSIS REFERENCE USING NASCET CRITERIA: % ICA stenosis = (1 - narrowest ICA diameter/diameter of distal cervical ICA) x 100. Mild - <50% stenosis. Moderate - 50-69% stenosis. Severe - 70-94% stenosis. Near occlusion - 95-99% stenosis. Occluded - 100% stenosis. IMPRESSION: Negative CTA neck. Critical spinal canal stenosis at T3-4. Recommend MRI of the thoracic spine to evaluate for myelopathy. Electronically signed by: Ivelisse Fajardo MD 01/18/25 01:32 AM Chest X-Ray 01/17/25 21:28 Exam(s): XR CXR 1 VIEW EXAM: XR Chest, 1 View CLINICAL HISTORY: Reason for exam: cough. TECHNIQUE: Frontal view of the chest. COMPARISON: Prior chest x-ray from January 01, 2024. FINDINGS: Lungs: Mild peribronchial thickening of the central lower lobe bronchi. No consolidation. Pleural space: Unremarkable. No pneumothorax. Heart: Unremarkable. No cardiomegaly. Mediastinum: Unremarkable. Normal mediastinal contour. Bones/joints: Chest post posterior fusion of the distal thoracic spine. Status post median sternotomy with sternal wires intact. No acute fracture. There is a loop recorder over the left chest wall. IMPRESSION: Bronchitis, which may be of infectious or inflammatory etiologies. No consolidation or pleural effusion. Electronically signed by: Ivelisse Fajardo MD 01/18/25 00:56 AM Diagnostic Findings EKG as per my interpretation :Rate 80, NSR, LAD, LAFB, RBBB, T wave flattening lateral leads
[2025-01-18] MEDS ORDERED: PHARMACIST DISCHARGE MED REC CONSULT PRN (01:37)
[2025-01-18] MEDS ORDERED: PROMETHAZINE 6.25 MG/50.25 ML BAG IV PRN (01:39)
[2025-01-18] MEDS ORDERED: LORazepam 0.5 MG TAB PO PRN (01:39)
[2025-01-18] MEDS ORDERED: FLUTICASONE PROPIONATE NA SPR 16 GM BTL PRN (01:40)
[2025-01-18] MEDS ORDERED: IPRATROPIUM BROMIDE NEB SOLN 0.02% 0.5MG/2.5ML VIAL INH PRN (01:53)
[2025-01-18] MEDS ORDERED: LEVALBUTEROL 1.25 MG/3 ML NEB NEB PRN (01:53)
[2025-01-18] MEDS: LEVALBUTEROL 1.25 MG/3 ML NEB NEB STA (02:03)
[2025-01-18] MEDS: IPRATROPIUM BROMIDE NEB SOLN 0.02% 0.5MG/2.5ML VIAL INH STA (02:03)
[2025-01-18] MEDS ORDERED: MECLIZINE 12.5 MG TAB PO PRN (02:12)
[2025-01-18] MEDS: GADOBUTROL 65ML VIAL IV ONE (02:57)
[2025-01-18] MEDS: AMPICILLIN/SULBACTAM SOD 3,000 MG/100 ML BAG IV STA (03:51)
[2025-01-18] MEDS ORDERED: GLUCOSE 40% GEL 15 GM TUBE PO PRN (05:19)
[2025-01-18] MEDS ORDERED: CARBOHYDRATES FOR HYPOGLYCEMIA PO PRN (05:19)
[2025-01-18] MEDS ORDERED: GLUCAGON FOR INJ 1 MG VIAL SQ PRN (05:19)
[2025-01-18] MEDS ORDERED: GLUCOSE 10 TAB/TUBE PO PRN (05:19)
[2025-01-18] MEDS ORDERED: DEXTROSE 50% 50 ML SYRINGE IV PRN (05:19)
[2025-01-18] MEDS: INSULIN ASPART PER UNIT CHARGE SC SCH (05:41)
[2025-01-18] MEDS: ACETAMINOPHEN 325 MG TAB PO PRN (05:41)
--- NOTE | 2025-01-18 06:55 | Magnetic Resonance Report ---
EXAM: MR brain wo/w con CLINICAL HISTORY: villagran, rle weakness, vertigo TECHNIQUE: MRI of the brain was performed with and without intravenous contrast administration (specify contrast agent and dosage). Sequences obtained include pre-contrast and post-contrast T1-weighted, T2-weighted, FLAIR (Fluid-Attenuated Inversion Recovery), DWI (Diffusion-Weighted Imaging), and ADC (Apparent Diffusion Coefficient) sequences. 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 [place]-white matter differentiation is preserved. No abnormal signal intensity lesions identified. Post-Contrast Findings: No abnormal enhancement of the brain parenchyma or meninges. Ventricles and Sulci: Ventricular system is within normal limits without evidence of hydrocephalus. Sulci and cisternal spaces are age-appropriate. Brainstem and Cerebellum: Few old lacunar infarcts are noted involving ev. Normal appearance of the brainstem and cerebellum without focal lesions or abnormal enhancement. Vessels: Intracranial vessels appear normal without evidence of vascular malformations or aneurysms. Skull and Calvarium: No evidence of skull vault lesions or abnormal marrow signal within the calvarium. IMPRESSION: MRI of the brain with and without contrast: 1. Few old lacunar infarcts are noted involving ev.-new finding. 2. No evidence of acute intracranial pathology or abnormal contrast enhancement. 3. No other new interval abnormality since prior study. Electronically signed by Karthik Navas 01-18-2025 06:55 AM
[2025-01-18 07:13] LABS: Hematocrit (blood only) 39.8 % (42.0-52.0); Hemoglobin 13.7 g/dl (14.0-18.0); Immature Granulocytes # (auto) 0.03 K/uL (0.01-0.20); Immature Granulocytes % (auto) 0.5 %; Mean Corpuscular Hemoglobin 27.8 pg (25.0-34.0); Mean Corpuscular Volume 80.7 fL (80.0-100.0); Platelet Count 200 K/uL (130-400); RDW Standard Deviation 38.3 fL (36.4-46.3); Red Blood Count 4.93 M/uL (4.70-6.10); White Blood Count 6.39 K/ul (4.8-10.8)
[2025-01-18 07:29] LABS: Anion Gap 7.0 (3-11); Blood Urea Nitrogen 10.0 mg/dl (6-23); Calcium 8.8 mg/dl (8.6-10.3); Carbon Dioxide 28.0 mmol/L (21-32); Chloride 107.0 mmol/L (98-107); Cholesterol 135.0 mg/dl (0-200); Creatinine Clr Calc Pharmacy 99.9 ml/min; Glucose 120.0 mg/dl (70-99(Fasting)); HDL Cholesterol 33.0 mg/dl; Potassium 3.4 mmol/L (3.5-5.1); Sodium 142.0 mmol/L (136-145); Triglycerides 322.0 mg/dl (0-150)
[2025-01-18 07:43] LABS: Hemoglobin A1C 6.9 % (4.5-5.6)
[2025-01-18] MEDS: FINASTERIDE 5 MG TAB PO SCH (08:25)
[2025-01-18] MEDS: ASPIRIN 81 MG ECTAB PO SCH (08:25)
[2025-01-18] MEDS: CLOPIDOGREL BISULFATE 75 MG TAB PO SCH (08:25)
[2025-01-18] MEDS: CHOLECALCIFEROL 25 MCG (1000 UNITS) TAB PO SCH (08:25)
[2025-01-18] MEDS: ENOXAPARIN INJ 40 MG/0.4 ML SYR SQ SCH (08:25)
[2025-01-18] MEDS: BACLOFEN 10 MG TAB PO SCH (08:25)
[2025-01-18] MEDS: PREGABALIN 100 MG CAP PO SCH (08:25)
--- NOTE | 2025-01-18 09:36 | Electrocardiogram Report ---
Test Reason : Blood Pressure : */* mmHG Vent. Rate : 78 BPM Atrial Rate : 78 BPM P-R Int : 180 ms QRS Dur : 110 ms QT Int : 414 ms P-R-T Axes : 39 -50 88 degrees QTcB Int : 471 ms Normal sinus rhythm Incomplete right bundle branch block Left anterior fascicular block Abnormal ECG When compared with ECG of 01-Jan-2024 12:50, No significant change was found Confirmed by Garrett Paez ([id number]) on 01/18/2025 9:35:52 AM Referred By: REFERRED SELF Confirmed By: Garrett Paez
[2025-01-18] MEDS: POTASSIUM CHLORIDE CRTAB 20 MEQ TABCR PO STA (10:39)
[2025-01-18] MEDS ORDERED: PROCHLORPERAZINE 5 MG/ML 2 ML VIAL IV STA (10:47)
--- NOTE | 2025-01-18 10:58 | Neurology Consultation ---
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 Recommend focusing on headache management. Start amitriptyline 25mg qhs, switch phenergan to compazine. Consider medrol dose pack. Give migraine cocktail now. Follow-up 01/[address] Vital. -- Amitriptyline 25mg qhs -- Consider medrol dose pack -- Migraine cocktail now -- Switch home phenergan to compazine -- Further leg swelling workup per medicine Telehealth Consultation Telehealth Information Telehealth Information: I performed this visit using a real-time telehealth connection between my location and the patients location ([facility]). 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 My office door was closed and no one else was present in the room with me.Patient (or authorized healthcare automotive sales representative) provided consent to proceed with the visit, expressed an understanding of privacy and security of the telemedicine visit, and gave permission to have a hospital automotive sales representative in the room in order to assist with the visit and to conduct portions of the visit, as needed. I informed the patient (or authorized healthcare automotive sales representative) that I reviewed their record and presented the opportunity for them to ask any questions regarding the visit today. The patient agreed to participate. History of Present Illness Reason for Consultation: Headache Requesting Physician: Dr. 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 The patient has been dealing with intermittent unilateral sharp and pressure like headaches for many years. Recently the pain has become much more severe. He describes a L unilateral headache that moves into and behind his L eye. He also complains of unilateral leg swelling which is ongoing and contributes to his pre-existing leg weakness from stroke. Of note, he was very hypertensive in the ED yesterday which improved with ativan. Allergies Allergy/AdvReac Type Severity Reaction Status Date / Time JOEL Inhibitors Allergy Intermediate HIVES/CHILL Verified 01/18/25 01:22 S Sulfa (Sulfonamide Allergy Intermediate "SULFA Verified 01/18/25 01:22 Antibiotics) DRUGS": RASH, HIVES albuterol Allergy Mild RASH Verified 01/18/25 01:22 rosuvastatin [From Crestor] AdvReac Intermediate Joint Pain Verified 01/18/25 01:22 Home Medications Medication Instructions Recorded Confirmed Type albuterol sulfate 90 mcg/actuation 2 puff inhalation Q4 PRN 09/28/22 01/18/25 History aerosol inhaler (Ventolin HFA) cough,SOB,wheezing aspirin 81 mg chewable tablet 81 mg PO QAM 09/28/22 01/18/25 History cholecalciferol (vitamin D3) 50 50 mcg PO QAM 09/28/22 01/18/25 History mcg (2,000 unit) capsule evolocumab 140 mg/mL subcutaneous 140 mg subcut .[id number] 09/28/22 01/18/25 History pen injector fluticasone propionate 50 2 spray intranasal DAILY PRN 09/28/22 01/18/25 History mcg/actuation nasal Congestion spray,suspension sildenafil (pulm.hypertension) 20 100 mg PO DAILY PRN Erectile 09/28/22 01/18/25 History mg tablet (Revatio) Dysfunction baclofen 10 mg tablet 10 mg PO TID 11/26/23 01/18/25 History finasteride 5 mg tablet 5 mg PO QAM 11/26/23 01/18/25 History losartan 25 mg tablet 12.5 mg PO QAM 11/26/23 01/18/25 History metformin 500 mg tablet,extended 1,000 mg PO AMHS 11/26/23 01/18/25 History release 24 hr oxycodone 5 mg tablet 5 mg PO DAILY PRN Pain 11/26/23 01/18/25 History semaglutide 2 mg/dose (8 mg/3 mL) 2 mg subcut WK 11/26/23 01/18/25 History subcutaneous pen injector (Ozempic) acetaminophen 500 mg tablet 500 - 1,000 mg PO HS 01/18/25 01/18/25 History acetaminophen 500 mg tablet 500 mg PO QPM 01/18/25 01/18/25 History clopidogrel 75 mg tablet 75 mg PO QAM 01/18/25 01/18/25 History hydroxyzine pamoate 25 mg capsule 25 - 50 mg PO HS 01/18/25 01/18/25 History icosapent ethyl 1 gram capsule 2 g PO AMHS 01/18/25 01/18/25 History (Vascepa) metoprolol succinate 25 mg 25 mg PO HS 01/18/25 01/18/25 History tablet,extended release 24 hr (Toprol XL) ondansetron 4 mg disintegrating 4 mg translingual Q8 PRN Nausea 01/18/25 01/18/25 History tablet pregabalin 100 mg capsule 100 mg PO BID 01/18/25 01/18/25 History pregabalin 150 mg capsule 150 mg PO HS 01/18/25 01/18/25 History Patient History Medical History Acute ischemic stroke DM2 (diabetes mellitus, type 2) HTN (hypertension) Surgical History S/P CABG (coronary artery bypass graft) H/O arthroscopy of left knee History of trigger finger History of carpal tunnel surgery H/O shoulder surgery History of back surgery Family History Mother Heart disease Diabetes Dyslipidemia Father Colorectal cancer Kidney disease Social History Smoking Status: Former smoker Smoking End Date: 5 years ago; Hx Alcohol Use: No Hx Substance Use: Yes Last Used Substance: Days (ago) Last Used Substance Other:: 1 week ago Substance Use Type Other:: medical marijuana gummies Preferred Language: Luxembourgish Communication Ability: Effective Exercise Planner Required: No Beliefs That Will Affect Care: None Current Living Situation: Spouse current occupational status: employed 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 Oriented to person, place, and time. Fluent. Comprehension intact. Affect appropriate. Cranial Nerves: II: pupils 3/3 to 2/2 III/IV/: Versions intact without nystagmus, no gaze preference. V: Facial sensation symmetric to light touch VII: Facial expression symmetric Motor: Strength was symmetric and antigravity throughout. Pronator drift was absent. There were no abnormal movements. Reflexes: Unable to assess over telemedicine Results & Data Vital Signs (Past 12 Hours) Vital Signs Temp Pulse Pulse Resp BP BP Pulse Ox 01/18/25 07:44 36.5 C 74 18 136/80 97 01/18/25 05:35 36.5 C 78 18 133/89 98 01/18/25 05:22 80 01/18/25 04:58 36.6 C 74 18 174/104 H 97 01/18/25 04:32 76 24 191/101 H 97 01/18/25 04:23 77 20 184/98 H 96 01/18/25 03:56 80 18 202/147 H 96 01/18/25 03:47 81 16 179/120 H 97 01/18/25 02:00 78 21 159/91 H 97 01/18/25 01:30 75 18 174/103 H 98 01/18/25 01:13 76 01/18/25 01:12 74 20 161/101 H 99 01/18/25 01:12 74 161/101 H 01/18/25 01:00 189/118 H 01/18/25 01:00 189/118 H 01/18/25 00:57 72 183/117 H 01/18/25 00:57 72 18 183/117 H 98 01/18/25 00:56 183/117 H 01/18/25 00:47 68 19 98 01/18/25 00:32 71 16 188/112 H 99 01/18/25 00:00 69 16 162/98 H 98 01/17/25 23:18 69 16 167/92 H 97 01/17/25 23:00 70 16 172/101 H 97 01/17/25 22:46 72 18 164/101 H 97 O2 Del Method 01/18/25 07:44 Room Air 01/18/25 05:35 Room Air 01/18/25 05:22 01/18/25 04:58 Room Air 01/18/25 04:32 Room Air 01/18/25 04:23 Room Air 01/18/25 03:56 Room Air 01/18/25 03:47 Room Air 01/18/25 02:00 Room Air 01/18/25 01:30 Room Air 01/18/25 01:13 01/18/25 01:12 Room Air 01/18/25 01:12 01/18/25 01:00 01/18/25 01:00 01/18/25 00:57 01/18/25 00:57 Room Air 01/18/25 00:56 01/18/25 00:47 Room Air 01/18/25 00:32 Room Air 01/18/25 00:00 Room Air 01/17/25 23:18 Room Air 01/17/25 23:00 Room Air 01/17/25 22:46 Room Air Laboratory Results Abnormal lab results 01/17/25 01/18/25 01/18/25 Range/Units 21:19 00:15 05:35 Hgb (14.0-18.0) g/dl Hct (42.0-52.0) % Potassium (3.5-5.1) mmol/L Glucose 168 H (70-99(Fasting)) mg/dl POC Glucose 129 H (70-99) mg/dl Hemoglobin A1c (4.5-5.6) % Triglycerides (0-150) mg/dl VLDL Cholesterol, Calc (0-30) mg/dl Ur Specific Hooper > 1.045 H (1.000-1.030) 01/18/25 01/18/25 Range/Units 06:51 08:08 Hgb 13.7 L (14.0-18.0) g/dl Hct 39.8 L (42.0-52.0) % Potassium 3.4 L (3.5-5.1) mmol/L Glucose 120 H (70-99(Fasting)) mg/dl POC Glucose 112 H (70-99) mg/dl Hemoglobin A1c 6.9 H (4.5-5.6) % Triglycerides 322 H (0-150) mg/dl VLDL Cholesterol, Calc 64 H (0-30) mg/dl Ur Specific Hooper (1.000-1.030) Diagnostic Findings MRI brain and CTA - Unremarkable
[2025-01-18] MEDS: diphenhydrAMINE 50 MG/ML VIAL IV STA (11:10)
[2025-01-18] MEDS: KETOROLAC TROMETHAMINE 15 MG/ML VIAL IV STA (11:10)
[2025-01-18] MEDS: PROCHLORPERAZINE 10 MG in SYRINGE 8 ML IV STA (11:11)
[2025-01-18] MEDS: MAGNESIUM SULFATE / D5W 1 GM/100 ML BAG IV ONE (11:11)
--- NOTE | 2025-01-18 15:16 | Communication Note ---
Date of Service: January 18, 2025 Pt was seen with his at bedside. Notes R leg numbness. Notes swelling of the leg as well though he does note he works out and works on his legs when working out. No recent injury. Concerned about left heel, states it feels like it is tearing sometimes. Notes extensive hx of spine surgeries and issues- previously followed with other spine surg at [facility] but agreeable to seeing Dr Smith for further recs No bowel or bladder incontinence. Per neurology, treat with migraine cocktail of Compazine, Benadryl, Toradol and magnesium-ordered Started on amitriptyline qhs per neuro recs compazine for home use work up RLE swelling- doppler US, R tib fib xray and left heel xray ordered given spine hx- xr lumbosacral spine ordered Consulted ortho spine for additional input?- any recs appreciated Discussed results of MRI with pt and Continue Augmentin for bronchitis For full plan, please see History and Physical from same date of service.
--- NOTE | 2025-01-18 15:16 | Hospitalist Progress Note ---
Date of Service January 18, 2025 Assessment & Plan (1) Dizziness: Plan: Assessment and plan below following discussion of case with ED provider and reviewing patient history/pertinent normal/abnormal diagnostic test results. Dizziness Multifactorial: Uncontrolled hypertension Vertigo component, history of BPPV as per records Rule out recurrent CVA (bilateral pontine strokes as per records) Anxiety contributory Possible aspiration pneumonitis No sepsis for now hx CAD status post CABG hyperlipidemia/statin intolerance, patient on Repatha and Vascepa AURE on CPAP DM 2 on oral medications, well-controlled as of recent hemoglobin A1c of 6.2 last September 2024 past tobacco abuse OBS Medical telemetry Neurochecks MRI brain permissive hypertension for now Neurology consult Re: Increased RLE weakness Anxiolytic as needed Unasyn followed by Augmentin for possible aspiration pneumonitis ISS BG goal 1 10-1 40 DVT prophylaxis. Lovenox subcu Full code Patient requesting updates providers. Berenice Diaz, contact #[phone]. Text document was generated using [employer] voice recognition software. It may contain grammatical or spelling errors. Kindly contact undersigned for clarification of any documentation item in question. Admission and Anticipated Discharge Date Admission Date: January 18, 2025 Results & Data Results & Data Vital Signs (Past 12 Hours) Vital Signs Temp Pulse Pulse Resp BP BP Pulse Ox 01/18/25 11:38 36.5 C 78 16 143/86 H 95 01/18/25 07:44 36.5 C 74 18 136/80 97 01/18/25 05:35 36.5 C 78 18 133/89 98 01/18/25 05:22 80 01/18/25 04:58 36.6 C 74 18 174/104 H 97 01/18/25 04:32 76 24 191/101 H 97 01/18/25 04:23 77 20 184/98 H 96 01/18/25 03:56 80 18 202/147 H 96 01/18/25 03:47 81 16 179/120 H 97 O2 Del Method 01/18/25 11:38 Room Air 01/18/25 07:44 Room Air 01/18/25 05:35 Room Air 01/18/25 05:22 01/18/25 04:58 Room Air 01/18/25 04:32 Room Air 01/18/25 04:23 Room Air 01/18/25 03:56 Room Air 01/18/25 03:47 Room Air
[2025-01-18] MEDS: AMOXICILLIN/CLAVULANATE 875 MG TAB PO SCH (17:44)
--- NOTE | 2025-01-18 17:55 | XRay Report ---
Clinical History: Pain. 3 views of the right lower leg are submitted for review. Findings: No fracture or dislocation is seen. There are small dorsal and plantar calcaneal spurs. No significant arthritic changes are noted. No other osseous abnormality is identified. There are no radiopaque foreign bodies. Impression: Small calcaneal spurs Electronically signed by Rafael Alberts 01-18-2025 5:55 PM
--- NOTE | 2025-01-18 17:59 | XRay Report ---
Clinical history: Pain Technique: 3 views of the lumbar spine are submitted for review Findings: The lumbar vertebrae are in normal alignment with no listhesis seen. No fracture is identified. There is degenerative spur formation throughout the lower thoracic and lumbar spine. No focal osseous lesion is seen. There is a partially visualized thoracic fusion Impression: Multilevel degenerative disc disease Electronically signed by Rafael Alberts 01-18-2025 5:59 PM
--- NOTE | 2025-01-18 18:12 | XRay Report ---
Clinical History: Pain. 2 views of the left calcaneus are submitted for review. Findings: No fracture or dislocation is seen. There is a dorsal calcaneal spur. No significant arthritic changes are noted. No other osseous abnormality is identified. There are no radiopaque foreign bodies. Impression: Calcaneal spur Electronically signed by Rafael Alberts 01-18-2025 6:12 PM
--- NOTE | 2025-01-18 18:34 | Ultrasound Report ---
DVT ULTRASOUND RIGHT LOWER EXTREMITY INDICATION: Pain TECHNIQUE: Grayscale and color Doppler evaluation of the RIGHT femoral-popliteal venous system was performed. A duplex Doppler study was performed, consisting of integrated two-dimensional (2D) real-time imaging: Color flow Doppler and Doppler spectral analysis. COMPARISON: None. FINDINGS: RIGHT common femoral, femoral and popliteal veins: Normal compressibility, color flow, respiratory variation. No intraluminal echogenic material. There are two popliteal fossa Alarcon's cysts measuring up to 4.0 cm. IMPRESSION: No evidence of deep venous thrombus in the right femoral-popliteal venous system. Popliteal fossa Alarcon's cysts measuring up to 4.0 cm. Electronically signed by Sam Estrada 01-18-2025 6:34 PM
[2025-01-18 19:46] VITALS: RESP 18
[2025-01-18] MEDS: PREGABALIN 150 MG CAP PO SCH (21:45)
[2025-01-18] MEDS: METOPROLOL SUCC 25MG EXT REL TAB PO SCH (21:45)
[2025-01-18] MEDS: AMITRIPTYLINE HCL 25 MG TAB PO SCH (21:45)
[2025-01-19 07:39] LABS: Hematocrit (blood only) 38.9 % (42.0-52.0); Hemoglobin 13.2 g/dl (14.0-18.0); Immature Granulocytes # (auto) 0.02 K/uL (0.01-0.20); Immature Granulocytes % (auto) 0.3 %; Mean Corpuscular Hemoglobin 27.6 pg (25.0-34.0); Mean Corpuscular Volume 81.2 fL (80.0-100.0); Platelet Count 208 K/uL (130-400); RDW Standard Deviation 39.3 fL (36.4-46.3); Red Blood Count 4.79 M/uL (4.70-6.10); White Blood Count 5.93 K/ul (4.8-10.8)
[2025-01-19 08:01] LABS: Anion Gap 8.0 (3-11); Blood Urea Nitrogen 14.0 mg/dl (6-23); Calcium 8.7 mg/dl (8.6-10.3); Carbon Dioxide 24.0 mmol/L (21-32); Chloride 109.0 mmol/L (98-107); Creatinine Clr Calc Pharmacy 92.5 ml/min; Glucose 119.0 mg/dl (70-99(Fasting)); Potassium 3.8 mmol/L (3.5-5.1); Sodium 141.0 mmol/L (136-145)
--- NOTE | 2025-01-19 09:27 | Consultation ---
Date of Consultation January 19, 2025 Assessment & Plan (1) Chronic low back pain: Imaging and treatment plan has been reviewed with Dr. Smith. He has no real symptoms that are new. Most of his lower extremity weakness is due to his stroke he had a year ago. Would recommend physical therapy focusing on b ilateral lower extremity strengthening. He can certainly follow-up with pain management (Dr Cardenas) as an outpatient. We're also happy to follow him up as an outpatient if needed. There is no recommendations for aggressive surgical intervention at this point. History of Present Illness Attending Physician: Caitlin Alas MD History of Present Illness Hira is a pleasant 60-year-old gentleman who presented to the emergency room on January 17 with strokelike symptoms/headaches. He had 2 strokes last year and is now on Plavix. As a result of the strokes he has had bilateral lower extremity weakness and bilateral foot drops which she has AFOs for. He only wears his AFOs if he is going to be standing or ambulating any distance. He has chronic back pain off and on. He denies any new lower extremity pain, numbness, weakness. He ambulates with a walker at home. He is on baclofen for his pain. He has undergone a prior lower thoracic procedure by Dr. Mcdaniel in 2016. He then followed up with [facility] who referred him to pain management. They had considered a spinal cord stim but unable to pursue secondary to prior surgery. More recently he has been under pain management care of Dr. Cardenas. Last injection was early 2023. He does note limitations with ambulation longer than 20 minutes. This is established. Also has a new onset of left heel pain for a month. This is random. Allergies Allergy/AdvReac Type Severity Reaction Status Date / Time JOEL Inhibitors Allergy Intermediate HIVES/CHILL Verified 01/18/25 01:22 S Sulfa (Sulfonamide Allergy Intermediate "SULFA Verified 01/18/25 01:22 Antibiotics) DRUGS": RASH, HIVES albuterol Allergy Mild RASH Verified 01/18/25 01:22 rosuvastatin [From Crestor] AdvReac Intermediate Joint Pain Verified 01/18/25 01:22 Home Medications Medication Instructions Recorded Confirmed Type albuterol sulfate 90 mcg/actuation 2 puff inhalation Q4 PRN 09/28/22 01/18/25 History aerosol inhaler (Ventolin HFA) cough,SOB,wheezing aspirin 81 mg chewable tablet 81 mg PO QAM 09/28/22 01/18/25 History cholecalciferol (vitamin D3) 50 50 mcg PO QAM 09/28/22 01/18/25 History mcg (2,000 unit) capsule evolocumab 140 mg/mL subcutaneous 140 mg subcut .[id number] 09/28/22 01/18/25 History pen injector fluticasone propionate 50 2 spray intranasal DAILY PRN 09/28/22 01/18/25 History mcg/actuation nasal Congestion spray,suspension sildenafil (pulm.hypertension) 20 100 mg PO DAILY PRN Erectile 09/28/22 01/18/25 History mg tablet (Revatio) Dysfunction baclofen 10 mg tablet 10 mg PO TID 11/26/23 01/18/25 History finasteride 5 mg tablet 5 mg PO QAM 11/26/23 01/18/25 History metformin 500 mg tablet,extended 1,000 mg PO AMHS 11/26/23 01/18/25 History release 24 hr oxycodone 5 mg tablet 5 mg PO DAILY PRN Pain 11/26/23 01/18/25 History semaglutide 2 mg/dose (8 mg/3 mL) 2 mg subcut WK 11/26/23 01/18/25 History subcutaneous pen injector (Ozempic) acetaminophen 500 mg tablet 500 - 1,000 mg PO HS 01/18/25 01/18/25 History acetaminophen 500 mg tablet 500 mg PO QPM 01/18/25 01/18/25 History clopidogrel 75 mg tablet 75 mg PO QAM 01/18/25 01/18/25 History hydroxyzine pamoate 25 mg capsule 25 - 50 mg PO HS 01/18/25 01/18/25 History icosapent ethyl 1 gram capsule 2 g PO AMHS 01/18/25 01/18/25 History (Vascepa) metoprolol succinate 25 mg 25 mg PO HS 01/18/25 01/18/25 History tablet,extended release 24 hr (Toprol XL) ondansetron 4 mg disintegrating 4 mg translingual Q8 PRN Nausea 01/18/25 01/18/25 History tablet pregabalin 100 mg capsule 100 mg PO BID 01/18/25 01/18/25 History pregabalin 150 mg capsule 150 mg PO HS 01/18/25 01/18/25 History amitriptyline 25 mg tablet 25 mg PO HS 30 days #30 tabs 01/19/25 Rx amoxicillin 875 mg-potassium 1 tab PO BIDM #6 tabs 01/19/25 Rx clavulanate 125 mg tablet losartan 25 mg tablet 25 mg PO QAM 30 days #30 tabs 01/19/25 Rx methylprednisolone 4 mg tablet See Rx Instructions .Route 01/19/25 Rx .COMPLEX #18 tabs Patient History Medical History Acute ischemic stroke DM2 (diabetes mellitus, type 2) HTN (hypertension) Surgical History S/P CABG (coronary artery bypass graft) H/O arthroscopy of left knee History of trigger finger History of carpal tunnel surgery H/O shoulder surgery History of back surgery Family History Mother Heart disease Diabetes Dyslipidemia Father Colorectal cancer Kidney disease Social History Smoking Status: Former smoker Hx Alcohol Use: No Hx Substance Use: Yes Last Used Substance: Days (ago) Last Used Substance Other:: 1 week ago Substance Use Type Other:: medical marijuana gummies Preferred Language: French Communication Ability: Effective [employer] Principal Required: No Beliefs That Will Affect Care: None Current Living Situation: Spouse current occupational status: employed 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 Feels Safe at Home: Yes Assistive Devices: Walker and Wheelchair Review of Systems Review of Systems: All systems reviewed & are unremarkable except as noted in HPI & below Physical Exam Physical Exam: He sitting on the edge of the bed in no acute distress Alert and oriented x 3, appropriate He has a well-healed lower thoracic incision Nontender patient with the midline thoracolumbar spine He has 5 5 strength bilateral EHL, dorsiflexion, plantarflexion, quadriceps, hamstrings, hip flexors, hip abductor's and hip adductor's Results & Data Vital Signs (Past 12 Hours) Vital Signs Temp Pulse Pulse Resp BP Pulse Ox Pulse Ox 01/19/25 08:23 36.6 C 67 18 125/77 97 01/19/25 07:23 70 01/19/25 05:19 95 01/19/25 03:57 36.5 C 77 18 128/78 95 01/19/25 01:41 87 01/18/25 23:22 36.6 C 79 18 155/80 H 96 O2 Del Method O2 Del Method 01/19/25 08:23 Room Air 01/19/25 07:23 01/19/25 05:19 Room Air 01/19/25 03:57 Room Air 01/19/25 01:41 01/18/25 23:22 Room Air Diagnostic Findings [place] [phone] XRay Report Patient: HIRA EDWARDS Admit Date: 01/18/25 MR#: [id number] Address[address]: [address] Acct ID:[id number] Address2: Date: 1965 [facility] Zip: [place] [address] Age: 59 Location: Sex: M Room/Bed: [facility] Att Phy: Isadora Delarosa MD Diagnosis: RLE WEAKNESS, DIZZINESS Alma Delia Phy: Monty Gillespie MD Service Date: 01/18/25 Fam Phy: Interpreting Phy: Rafael Alberts MDAdmit Phy: Adair Ortiz MD Ordering Phy: Isadora Delarosa MD cc: ~ Clinical history: Pain Technique: 3 views of the lumbar spine are submitted for review Findings: The lumbar vertebrae are in normal alignment with no listhesis seen. No fracture is identified. There is degenerative spur formation throughout the lower thoracic and lumbar spine. No focal osseous lesion is seen. There is a partially visualized thoracic fusion Impression: Multilevel degenerative disc disease Electronically signed by Rafael Alberts 01-18-2025 5:59 PM Dictated: 01/18/25 1630 Transcribed: [place], [place] [phone] Magnetic Resonance Report Patient: HIRA EDWARDS Admit Date: 11/26/23 MR#: [id number] Address1: [address] Acct ID:[id number] Address2: Date: 1965 [facility] Zip: [place] [address] Age: 58 Location: [facility] Sex: M Room/Bed: [facility] 1-10 Att Phy: Pasquale Abdul MD Diagnosis: TIA Alma Delia Phy: Monty Gillespie MD Service Date: 11/26/23 Fam Phy: Interpreting Phy: Ivelisse Carmencita Scotty MDAdmit Phy: Adair Ortiz MD Ordering Phy: Adair Ortiz MD cc: ~ Exam(s): MRI L SPINE Without Contrast EXAM: MR Lumbar Spine Without Intravenous Contrast CLINICAL HISTORY: Reason for exam: back pain, leg weakness. TECHNIQUE: Magnetic resonance images of the lumbar spine without intravenous contrast in multiple planes. COMPARISON: Comparison made to prior lumbar spine MRI from November 29, 2015. FINDINGS: Vertebrae: There are 5 lumbar type vertebral bodies with a normal lumbar lordosis. There is normal vertebral body height and alignment. The bone marrow signal is heterogeneous with areas of focal fat or venous malformations and reactive end plate changes. No acute fracture. 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 Spinal cord: The conus is normal size, shape and signal characteristics. To L1-L2. Soft tissues: Moderate atrophy of the psoas, paraspinous intraspinous musculature. The aorta and IVC flow voids are intact. The visualized kidneys are unremarkable. DISCS/SPINAL CANAL/NEURAL FORAMINA: L1-L2: Moderate degeneration of the disc bulge asymmetric to the right causing mild subarticular recess stenosis with superimposed congenitally short pedicles causing a mild spinal canal stenosis with thecal sac hemorrhage and 0.93 cm clear. There is disc extension of the neuroforamina without evidence of impingement or significant stenosis. There is mild facet arthropathy with mild synovitis. L2-L3: There is mild disc degeneration with annular disc bulge causing a mild subarticular recess stenosis with superimposed congenitally short pedicles causing a mild spinal canal stenosis with thecal sac area measuring 0.78 cm². There is disc extending to the neuroforamina causing mild bilateral stenosis without evidence of neural impingement. There is mild facet arthropathy with mild synovitis. L3-L4: There is mild disc degeneration with any other disc bulge asymmetric to left causing mild subarticular recess stenosis with superimposed congenitally short pedicles causing a moderately severe spinal canal stenosis with thecal sac average of 0.65 cm². There is disc extending to the neuroforamina causing mild bilateral stenosis without evidence of neural impingement. There is mild facet arthropathy with mild synovitis. L4-L5: There is mild disc degeneration with annular disc bulge asymmetric to the right causing mild subarticular recess stenosis, with superimposed congenitally short pedicles causing a severe spinal canal stenosis with thecal sac hemorrhage and 0.46 cm². There is disc extending to the neuroforamina causing mild bilateral stenosis without evidence of neural impingement. There is minimal facet arthropathy with mild synovitis. L5-S1: Moderate disc degeneration within the disc bulge flattening the ventral thecal sac, with disc and osteophyte extending to the neuroforamina causing a moderately severe right and mild left stenosis with impingement of the right L5 nerve root ganglion. There is mild facet arthropathy with mild synovitis. IMPRESSION: 1. Moderate disc degeneration at L1-L2 and L5-S1 with mild disc degeneration at L2-3, L3-4 and L4-5 with annular disc bulging flattening the ventral thecal sac and causing mild subarticular recess stenosis at L1-2, L2-3, L3-4 and L4-5 without evidence of neural impingement. 2. 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 3. There is mild bilateral L2-3, mild bilateral L3-4, mild bilateral L4- 5 and moderately severe right and mild left L5-S1 neuroforaminal stenosis with impingement of the right L5 nerve root ganglion. 4. There is minimal to mild facet arthropathy with mild synovitis. 5. No evidence of fracture, infection, tumor or arachnoiditis. Electronically signed by: Ivelisse Fajardo MD 11/27/23 01:25 AM Dictated: 11/27/23 0125 Transcribed: 11/27/23 012 Document Auto-Saved
[2025-01-19] MEDS: LOSARTAN POTASSIUM 25 MG TAB PO SCH (09:32)
[2025-01-19] MEDS ORDERED: methylPREDNISolone 4 MG TAB, 6 DAY TAPER PO SCH (10:15)
[2025-01-19 11:14] VITALS: BP 139/80; PULSE 79; TEMP 98.2; O2SAT 95
[2025-01-19] MEDS: POLYETHYLENE (MIRALAX) 17 GM PACK PO PRN (11:18)
[2025-01-19] MEDS: methylPREDNISolone 4 MG TAB PO SCH ×2 (11:18→13:02)
--- NOTE | 2025-01-19 19:52 | Discharge Summary ---
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 Course focused on headache management. Patient started on amitriptyline 25mg qhs. Acute stroke r/o on imaginge Patient with some residual symptoms on day of discharge therefore medrol dose pack started. Patient with follow up with Dr. Vital on 01/26. Patient with HTN in 140-160s, home losartan increased. Notes For Next Care Provider -Calcaneal spur on RLE, consider OP Ortho work up Medication Changes From Visit amitriptyline 25mg qhs medrol dose pack increased losartan to 25mg daily Admission HPI Per Admitting Provider History obtained from patient, family, and records. Medical history significant for CAD status post CABG, CVA (bilateral pontine strokes as per records), hypertension, hyperlipidemia, statin intolerance, AURE on CPAP, DM 2 on oral medications, GERD, chronic back pain status post surgery, BPPV, anxiety disorder, past tobacco abuse. Last confinement November 2023 for acute ischemic stroke presenting as dizziness, imbalance sensation and more pronounced left-sided weakness. MRI report showed small acute ischemic right ev. Plavix added to patient's aspirin on discharge. Loop recorder to apple picker on predisposing arrhythmias eventually placed outpatient June,. Last week, patient noted increase in baseline RLE weakness associated with left- sided headache, dizziness symptoms described as occasionally spinning. Usual decreased hearing from prior strokes as per patient. No unusual back pain. Patient compliant with home medications. Junky cough symptoms following reflux episodes. Some SOB without chest pain. Warm sensation over left chest from time to time. No abdominal pain. SBP noted to be 1 90-200s at home which is unusual. Patient consulted ER for evaluation. 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 Admission Exam Per Admitting Provider GENERAL: Anxious, obese, mild hearing impairment, no respiratory distress SKIN: Normal color, warm HEENT: Bespectacled, [place] palpebral conjunctivae, no ptosis, moist buccal mucosa NECK : Supple, no tenderness CHEST : Decreased breath sounds, no tenderness HEART : RRR, no obvious murmurs ABDOMEN: Some distention, nontender EXTREMITIES : Minimal LE swelling/tenderness, no other conspicuous deformities noted NEUROLOGIC : Coherent, no facial asymmetry, MMTS BUE 4/5, BLE 3/5, gait and stance not assessed Discharge Exam Constitutional WD/WN, vitals as above Respiratory normal respiratory effort, lungs clear to auscultation Cardiovascular RRR, no murmur, no edema Neurologic 5/5 BUE strength, 5/5 LLE, 4/5 RLE baseline per patient, CN II-XII intact Updated Medication List Medication Instructions Recorded Confirmed Type albuterol sulfate 90 mcg/actuation 2 puff inhalation Q4 PRN 09/28/22 01/18/25 History aerosol inhaler (Ventolin HFA) cough,SOB,wheezing aspirin 81 mg chewable tablet 81 mg PO QAM 09/28/22 01/18/25 History cholecalciferol (vitamin D3) 50 50 mcg PO QAM 09/28/22 01/18/25 History mcg (2,000 unit) capsule evolocumab 140 mg/mL subcutaneous 140 mg subcut .[id number] 09/28/22 01/18/25 History pen injector fluticasone propionate 50 2 spray intranasal DAILY PRN 09/28/22 01/18/25 History mcg/actuation nasal Congestion spray,suspension sildenafil (pulm.hypertension) 20 100 mg PO DAILY PRN Erectile 09/28/22 01/18/25 History mg tablet (Revatio) Dysfunction baclofen 10 mg tablet 10 mg PO TID 11/26/23 01/18/25 History finasteride 5 mg tablet 5 mg PO QAM 11/26/23 01/18/25 History metformin 500 mg tablet,extended 1,000 mg PO AMHS 11/26/23 01/18/25 History release 24 hr oxycodone 5 mg tablet 5 mg PO DAILY PRN Pain 11/26/23 01/18/25 History semaglutide 2 mg/dose (8 mg/3 mL) 2 mg subcut WK 11/26/23 01/18/25 History subcutaneous pen injector (Ozempic) acetaminophen 500 mg tablet 500 - 1,000 mg PO HS 01/18/25 01/18/25 History acetaminophen 500 mg tablet 500 mg PO QPM 01/18/25 01/18/25 History clopidogrel 75 mg tablet 75 mg PO QAM 01/18/25 01/18/25 History hydroxyzine pamoate 25 mg capsule 25 - 50 mg PO HS 01/18/25 01/18/25 History icosapent ethyl 1 gram capsule 2 g PO AMHS 01/18/25 01/18/25 History (Vascepa) metoprolol succinate 25 mg 25 mg PO HS 01/18/25 01/18/25 History tablet,extended release 24 hr (Toprol XL) ondansetron 4 mg disintegrating 4 mg translingual Q8 PRN Nausea 01/18/25 01/18/25 History tablet pregabalin 100 mg capsule 100 mg PO BID 01/18/25 01/18/25 History pregabalin 150 mg capsule 150 mg PO HS 01/18/25 01/18/25 History amitriptyline 25 mg tablet 25 mg PO HS 30 days #30 tabs 01/19/25 Rx amoxicillin 875 mg-potassium 1 tab PO BIDM #6 tabs 01/19/25 Rx clavulanate 125 mg tablet losartan 25 mg tablet 25 mg PO QAM 30 days #30 tabs 01/19/25 Rx methylprednisolone 4 mg tablet See Rx Instructions .Route 01/19/25 Rx .COMPLEX #18 tabs Hospital Stay Data Consultations 01/18/25 00:37 ED Decision to Admit Stat 01/18/25 06:24 Consult Neurology Routine 01/18/25 14:03 Consult Orthopedic Spine Surgery Routine Diagnostic Imagining Performed 01/17/25 21:27 CT angio head wo/w Stat CT angio neck with con Stat 01/18/25 01:37 MR brain wo/w con Routine 01/18/25 14:02 US venous doppler LE RT Urgent Pending Results Patient Have Any Pending Studies at Discharge: No Discharge Instructions Given to Patient (Per Discharging Provider) You were admitted for stroke rule out and noted to have bronchitis and a severe migraine. You were seen by Neurology and it was noted on your imaging that you did not have a new stroke. You were started on amitriptyline to help with prevention of migraines. Your blood pressure medication was increased to control your pressure better as well. You were also started on steroid taper to help break the pain crisis from the migraine. You will continue it as follows: Day-1 4mg(SUPPER), 8mg(BEDTIME) Day-2 4mg(BREAKFAST), 4mg(LUNCH), 4mg(SUPPER), 8mg(BEDTIME) Day-3 4mg(BREAKFAST), 4mg(LUNCH), 4mg(SUPPER), 4mg(BEDTIME) Day-4 4mg(BREAKFAST), 4mg(LUNCH), 4mg(BEDTIME) Day-5 4mg(BREAKFAST), 4mg(BEDTIME) Day-6 4mg(BREAKFAST) You will complete 6 more doses of antibiotic. Total Time Total Time Spent Total Time Spent (In Minutes): 35
[2025-01-20] MEDS ORDERED: methylPREDNISolone 4 MG TAB PO SCH ×2 (07:00→21:00)
[2025-01-21] MEDS ORDERED: methylPREDNISolone 4 MG TAB PO SCH (07:00)
[2025-01-22] MEDS ORDERED: methylPREDNISolone 4 MG TAB PO SCH (07:00)
[2025-01-23] MEDS ORDERED: methylPREDNISolone 4 MG TAB PO SCH (07:00)
[2025-01-24] MEDS ORDERED: methylPREDNISolone 4 MG TAB PO SCH (07:00)
== END 2025-01-19 13:52 | disposition home or self-care (01) ==
LOC: ED 21:00 → 2N 21:00 → SUATTDRO 01-18 01:36 → 2N 01-18 04:58